=== PATIENT | male | born 1940 | race Caucasian/White ===

== ENCOUNTER 2018-01-21 15:32 | Emergency (ER) | payer OTHER, SELFPAY ==
[2018-01-21 15:34] VITALS: BP 158/82; PULSE 66; RESP 18; TEMP 35.9; O2SAT 94; BMI 31.8
--- NOTE | 2018-01-21 15:57 | EKG12_ITS ---
Test Reason : Blood Pressure : / mmHG Vent. Rate : 074 BPM Atrial Rate : 061 BPM P-R Int : 192 ms QRS Dur : 088 ms QT Int : 402 ms P-R-T Axes : -17 009 040 degrees QTc Int : 446 ms Sinus rhythm with occasional Premature ventricular complexes Otherwise normal ECG Confirmed by YUNIER HUANG, LUZ ([id number]), associate entertainment editor KATHERINE LOVE ([id number]) on 01/24/2018 9:09:03 AM Referred By: MASSIEL Confirmed By:LUZ FAYE MD
--- NOTE | 2018-01-21 15:58 | RAD_ITS ---
STUDY: X-RAY CHEST REASON FOR EXAM: Male, 77 years old. Headache. Shortness of breath. TECHNIQUE: PA and lateral views of the chest. COMPARISON: None. FINDINGS: There are monitoring devices. The lungs are clear and expanded. There is no demonstrated pleural abnormality. Normal size heart. Normal mediastinum and elvie. Normal visualized pulmonary arteries. There is atherosclerotic calcification of the aortic arch. There are diffuse degenerative changes of the visualized thoracic spine. There is degenerative osteoarthritis of the bilateral shoulders. There is no demonstrated abnormality of the visualized soft tissue structures of the upper abdomen. RAD/Chest PA and Lateral IMPRESSION: Normal x-ray examination of the chest. Electronically Signed: Kadeem Alexis MD at 17:01 EST , Service support ,
--- NOTE | 2018-01-21 16:01 | ED.DCSUM_ITS ---
- ER Visit Summary Date of Service: 01/21/18 Chief Complaint: Kidney trouble History of Present Illness: The patient is a 77 M who presents for 1 day of urinary symptoms, including urinary frequency and dysuria. Patient states he has been urinating every 15-20 minutes and was unable to sleep overnight. He has had a dull headache for 2 days and has intermittent blurred vision with it. He denies fever, chest pain, abdominal pain, back pain, weakness or numbness in the arms or legs. He does have history of chronic dyspnea secondary to CHF. Also is having mild nausea. Patient denies being diabetic. He has not taken anything for his headache. He had prior symptoms 2 weeks ago when he forgot his medications while out of town and did not take them. His symptoms lasted approximately 2 days and resolved after he began taking his medication again. Patient is on Effexor but states he has not missed any doses. Physical Examination: Vital signs: afebrile, hemodynamically stable, no hypoxia on room air General: well nourished, well developed, in no distress Skin: warm, dry, no rash, no pallor HEENT: normocephalic and atraumatic; PERRL, EOMI, no nystagmus, moist mucous membranes Cardiovascular: regular rate and rhythm with soft 2/6 systolic murmur, no peripheral edema, 2+ pulses all distal extremities Respiratory: No increased work of breathing, lungs are clear to auscultation bilaterally for mild diminished sounds in the right lower field, no rales, rhonchi or wheezing Abdominal: Abdomen is soft, nontender with normoactive bowel sounds, no guarding or rebound, no masses MSK: Moves all extremities, no deformities, normal strength Neuro: Awake and alert, oriented ?4. No facial droop, sensation and motor function intact and symmetric Test Results: Abnormal Lab Results 01/21/18 01/21/18 01/21/18 16:00 16:00 18:00 WBC 10.3 RBC 4.37 L Hgb 14.7 Hct 43.1 MCV 98.6 H MCH 33.6 H MCHC 34.1 RDW 13.4 RDW Differential 47.2 H Plt Count 213 MPV 8.7 Immature Gran % (Auto) 0.100 Neut % (Auto) 69.4 Lymph % (Auto) 19.1 [place] % (Auto) 10.0 Eos % (Auto) 1.2 Baso % (Auto) 0.2 Absolute Neuts (auto) 7.2 Absolute Lymphs (auto) 1.97 Total Counted Not Reportable Sodium 136 Potassium 3.9 Chloride 103 Carbon Dioxide 27.0 Anion Gap 6 BUN 12 Creatinine 0.88 Estim Creat Clear Calc 67.81 Est GFR (MDRD) Af Amer 108 Est GFR (MDRD) Non-Af 90 BUN/Creatinine Ratio 13.6 Glucose 99 Calcium 8.6 Total Bilirubin 1.30 H AST 18 ALT 32 Alkaline Phosphatase 43 L Troponin I < 0.015 Total Protein 8.1 Albumin 3.7 Globulin 4.4 H Albumin/Globulin Ratio 0.8 L Urine Color Yellow Urine Clarity Sl Cloudy Urine pH 6.0 Ur Specific [place] 1.020 Urine Protein 100 H Urine Glucose (UA) Normal Urine Ketones 5 H Urine Occult Blood 250 H Urine Nitrite Positive H Urine Bilirubin Negative Urine Urobilinogen Normal Ur Leukocyte Esterase 500 H Urine RBC 0-5 SEEN Urine WBC >100 SEEN Ur Squamous Epith Cells 0 SEEN Urine Bacteria 3+ Urine Mucus 0 SEEN Clinical Impression(s) from Imaging Studies Chest X-Ray 01/21/18 15:58 IMPRESSION: Normal x-ray examination of the chest. Electronically Signed: Kadeem Alexis MD at 17:01 EST , Service support , Medications Given Discontinued Medications Levofloxacin (Levaquin Tablet) 750 mg PO X1 ONE Stop: 01/21/18 19:58 Last Admin: 01/21/18 20:05 Dose: 750 mg Emergency Department Course and Treatment: Patient presents with chief complaint of urinary frequency and dysuria. Patient does state his blood pressure has been somewhat poorly controlled since he forgot his medications a couple weeks ago and missed a few days worth. Patient was offered and declined medication for his headache. Because part of his complaint was also his blood pressure, workup was performed to look for endorgan damage. EKG showed a sinus rhythm without ischemia or ectopy. Troponin negative. CBC, BMP and hepatic function were unremarkable. Chest x-ray showed no infiltrates or overt CHF. Urinalysis was positive for infection. Has had no abdominal pain, back pain or other complaints that would be concerning for an obstructed stone causing his UTI. Discussed with patient whether he had any history of prostate issues, and states his most recent physical showed no issues with his prostate. Patient was started on Levaquin for complicated UTI, since he is male. He was discharged home and is to follow-up with his doctor if he continues to have symptoms. Had no findings of endorgan damage that would be concerning for uncontrolled hypertension on his workup. He will continue his blood pressure medications and was encouraged not to miss any doses. Treatment Plan: [] Disposition: [] Impression: Complicated UTI This note was generated with [employer] dictation software. It may contain incorrect words, spelling, and punctuation that were not noted in review of the chart prior to signing ED Disposition - Plan for ED Patient: Disposition: Home or Assisted Living Chief Complaint: Hypertension Instructions: ED UTI Cystitis Male Prescriptions: Levofloxacin [Levaquin] 750 mg PO DAILY #5 tab Referrals: Damir Yang DO [Primary Care Provider] - 3-5 Days if not improving Additional Instructions: You have a urinary tract infection. Please take the antibiotic as prescribed. Use [id number] pain medication such as Tylenol or ibuprofen as needed for pain. Please take all your medications, including your blood pressure medicine as prescribed. Follow-up with your doctor in 2-3 days if you are not having improvement of your symptoms. If you have any worsening of your condition or any new concerning symptoms, please return immediately to the emergency department for another evaluation.
--- NOTE | 2018-01-21 16:04 | NURSING ---
NO OLD EKGS
[2018-01-21 16:24] LABS: Absolute Lymphocyte Count 1.97 X10^3/ul (0.83-4.51); Absolute Neutrophil Count 7.2 X10^3/uL (2.0-7.7); Basophil# 0.02 X10^3/uL; Basophil% 0.2 % (0-1); Eosinophil# 0.12 X10^3/uL; Eosinophils% 1.2 % (0-5); Hematocrit 43.1 % (40-54); Hemoglobin 14.7 g/dl (13.0-16.5); Lymphocyte # 1.97 X10^3/ul (4.0); Lymphocyte % 19.1 % (19-41); Mean Corp Hgb Conc 34.1 g/gl (32-36); Mean Corpuscular Hgb 33.6 pg (27.0-32.0); Mean Corpuscular Volume 98.6 fL (80-94); Mean Platelet Vol. 8.7 fl (6.2-12.0); Monocyte# 1.03 X10^3/uL; Neutrophil # 7.16 X10^3/uL (2.7-7.7); Neutrophil % 69.4 % (47-70); Platelet Count 213 K/mm3 (150-450); RBC Distribution Width CV 13.4 % (11.6-14.6); RBC Distribution Width SD 47.2 fl (35.1-43.9); Red Blood Count 4.37 M/mm3 (4.6-6.2); White Blood Count 10.3 K/mm3 (4.4-11.0)
[2018-01-21 16:26] LABS: POSITIVE COUNT NO; POSITIVE DIFFERENTIAL NO; POSITIVE MORPHOLOGY NO
[2018-01-21 16:35] LABS: ALB/GLOB Ratio 0.8 RATIO (0.9-2.4); AST(SGOT) 18 U/L (15-37); Alanine Aminotransfer ALT/SGPT 32 U/L (16-61); Albumin, Serum 3.7 g/dL (3.2-5.0); Alkaline Phosphatase 43 U/L (45-117); Anion Gap 6 (5-15); BUN 12 mg/dL (7-18); BUN/Creat Ratio 13.6 RATIO (10-20); Calcium,Total 8.6 mg/dL (8.5-10.1); Chloride 103 mmol/L (98-107); Creatinine, Serum 0.88 mg/dL (0.70-1.30); EST Glomerular Filtration Rate 90 mL/min (>60); Est Glom Filt Rate - Afr Amer 108 mL/min (>60); Estimated Creatinine Clearance 67.81 ml/min; Globulin 4.4 g/dL (2.2-4.2); Glucose 99 mg/dL (74-106); Potassium 3.9 mmol/L (3.5-5.1); Protein, Total 8.1 g/dL (6.4-8.2); Sodium Level 136 mmol/L (136-145)
[2018-01-21 18:04] VITALS: BP 170/90; PULSE 59; RESP 20; O2SAT 97
[2018-01-21 18:06] LABS: Mucous, Urine 0 SEEN /hpf (<or=2+); Squamous Epithelial Cells - UA 0 SEEN /hpf (0-5)
[2018-01-21 18:12] LABS: Glucose, Dipstick Normal (Normal); Ketone-Dipstick 5 mg/dl (Negative); Leukocyte Esterase-Dipstick 500 /ul (Negative); Nitrite-Dipstick Positive (Negative); Occult Blood-Urine 250 /ul (Negative); Protein-Dipstick 100 mg/dl (Negative); Urine Bilirubin Dipstick Negative (Negative); Urine Urobilinogen Normal (Normal)
[2018-01-21 18:31] LABS: Color, Urine Yellow (Yellow)
[2018-01-21 18:32] LABS: Urine Clarity Sl Cloudy (Clear)
[2018-01-21 18:33] LABS: Bacteria 3+ /hpf (None Seen); Red Blood Cells-Urine 0-5 SEEN /hpf (0-5); White Blood Cells >100 SEEN /hpf (0-5)
--- NOTE | 2018-01-21 19:58 | ED.DEP ---
ED Disposition - Plan for ED Patient: Disposition: Home or Assisted Living Chief Complaint: Hypertension Instructions: ED UTI Cystitis Male Prescriptions: Levofloxacin [Levaquin] 750 mg PO DAILY #5 tab Referrals: Damir Yang DO [Primary Care Provider] - 3-5 Days if not improving Additional Instructions: You have a urinary tract infection. Please take the antibiotic as prescribed. Use nuya-vec-ruanbex pain medication such as Tylenol or ibuprofen as needed for pain. Please take all your medications, including your blood pressure medicine as prescribed. Follow-up with your doctor in 2-3 days if you are not having improvement of your symptoms. If you have any worsening of your condition or any new concerning symptoms, please return immediately to the emergency department for another evaluation.
[2018-01-21] MEDS: levoFLOXacin 750 MG Tablet PO (20:05)
[2018-01-21 20:07] VITALS: BP 160/110; PULSE 67; RESP 16; O2SAT 99
--- OUTSIDE RECORDS SUMMARY | 2018-03-09 23:12 | XMS RPT_ITS ---
:1940 Author Organization OHIP Support Name Relationship Address Phone R Unavailable Unavailable Unavailable DANIEL MOORE Unavailable [address] + [place] [address] R Unavailable Unavailable Unavailable ARLETTE MOOREON Unavailable [address] + [place] [address] R Unavailable Unavailable Unavailable ARLETTE MOOREON Unavailable [address] + [place] [address] R Unavailable Unavailable Unavailable MOOREARLETTEON Unavailable [address] + [place] [address] R Unavailable Unavailable Unavailable S Unavailable Unavailable Unavailable ARLETTE MOOREON Unavailable [address] + [place] [address] S Unavailable Unavailable Unavailable MOORE, ENISHA Unavailable [address] + [place] [address] ARLETTE MOOREON Unavailable [address] + [place] [address] S Unavailable Unavailable Unavailable MOORE, NEISHA Unavailable [address] + [place] [address] MOOREARLETTEON Unavailable [address] + [place] [address] MOORE, NEISHA Unavailable [address] + [place] [address] MOORE, NEISHA Unavailable [address] + [place] [address] Care Team Providers Name Role Phone DAMIR YANG DO Attending Unavailable CELIA DO, DAMIR W Primary Care Unavailable Cinthya Parada Attending Unavailable Celia, Damir Primary Care Unavailable Celia, Damir Primary Care Unavailable Ramiro Jarrell Attending Unavailable Celia, Damir Primary Care Unavailable White, Buffy Admitting Unavailable White, Buffy Referring Unavailable Abram, Zafar Consulting Unavailable Dwayne Silvestreolas F Attending Unavailable White, Buffy Admitting Unavailable White, Buffy Attending Unavailable White, Buffy Referring Unavailable Celia, Damir Primary Care Unavailable White, Buffy Consulting Unavailable White, Buffy Admitting Unavailable Kokirtionihaylee Vinh F Attending Unavailable White, Buffy Referring Unavailable Celia, Damir Primary Care Unavailable Abram, Zafar Consulting Unavailable Kotsonis, Vinh F Consulting Unavailable Cristine Stone Attending Unavailable White, Buffy Admitting Unavailable Kotsonis, Vinh F Attending Unavailable White, Buffy Referring Unavailable Celia, Damir Primary Care Unavailable Abram, Zafar Consulting Unavailable Kotsonis, Vinh F Consulting Unavailable PROBLEMS PROBLEMS DATE TYPE CONDITION / CODE ATTENDING STATUS SOURCE 02/26/2018 Unknown N20.0 - CalcRamiro Yoon Active [facility] kidney / Community N20.0(ICD-10) Hospital Repository PROCEDURES PROCEDURES No Procedure Records FoundRESULTS RESULTS 12 LEAD ELECTROCARDIOGRAM Observed: 03/04/2018 Status: F Source: [place] 1:08 PM [facility] HOSPITAL REPOSITORY [facility] Cardiovascular Services [address] [place] [id number] 12 Lead EKG 03/02/18 2257 MR#: [id number] Acct: [id number] Name: MOUNA MOORE Rep #: [id number] : 1940 77 From: Clifton John MD Attending Dr: Vinh Silvestre MD Status: DIS IN Ordering Dr: Brianne Barrera DO Date: 03/02/18 Location: [place] Sex: M C Admitted: 03/02/18 Test Reason : FLANK PAIN Blood Pressure : / mmHG Vent. Rate : 057 BPM Atrial Rate : 057 BPM P-R Int : 174 ms QRS Dur : 088 ms QT Int : 448 ms P-R-T Axes : -02 005 009 degrees QTc Int : 436 ms Sinus bradycardia with occasional Premature ventricular complexes Otherwise normal ECG Confirmed by YUNIER HUANG, CLIFTON ([id number]), story editor DEMETRIUS TAM ([id number]) on 03/04/2018 1:08:27 PM Referred By: Buffy Tariq Confirmed By:CLIFTON JOHN MD 03/04/18 1308 Date Clifton John MD CC: Buffy Tariq; Vinh Silvestre MD; Damir Yang MD; Brianne Barrera DO Signed DISCHARGE SUMMARY Observed: 03/04/2018 Status: F Source: [place] 8:41 AM [facility] REPOSITORY [facility] Medical Records Department [address] [place] [address] Discharge Summary 03/04/18 0832 MR#: [id number] Acct: [id number] Name: MOUNA MOORE Rep #: [id number] : 1940 77 From: Vinh Silvestre MD PCP: Damir Yang MD Status: ADM IN Location: [place] [address] Discharge Date and Diagnosis - Problem List Patient Problems: Active and Suspected Problems Nephrolithiasis (Acute) YUE (acute kidney injury) (Acute) Date of Admission: 03/02/18 Date of Discharge: 03/04/18 - Primary Discharge Diagnosis Active and Suspected Problems Nephrolithiasis (Acute) YUE (acute kidney injury) (Acute) - Secondary Discharge Diagnosis Chronic Problems CHF (congestive heart failure) (Chronic) HTN (hypertension) (Chronic) HLD (hyperlipidemia) (Chronic) Obesity (BMI 30.0-34.9) (Chronic) Anxiety and depression (Chronic) Hospital Course and Treatment Imaging Results: CT Abd/Pelvis: IMPRESSION: 1. A 5 mm left ureteral stone at the UVJ, with moderate proximal hydroureteronephrosis. 2. Cholelithiasis. No evidence of acute cholecystitis. 3. Diverticulosis. No diverticulitis. 4. A 5 mm pleural-based nodule in the right lung base, likely fibrotic. Operations: - - Cystoscopy: Date of Procedure: 03/03/18 Pre- Operative Diagnosis: Left ureteral calculi with obstruction Post-Operative Diagnosis: Same Surgery/Procedure Performed:: Cystoscopy, balloon dilation of the left ureter, left ureteroscopy laser lithotripsy of stone. No stent Summary of Care Provided: Per HPI: The patient is a 77 y/o M w/ PMHx: CHF Unclear type, HTN, HLD, Obesity, Anxiety and Depression who presents to the [facility] ED on 03/02/18 with history of ongoing L sided flank pain, dysuria which started initially approximately 2 weeks prior with eventual ED evaluation initially on 02/26/18 with diagnosis at that time of a 4.7 mm left kidney stone with despite discharge oral pain regimen ongoing discomfort prompting ED return. In the ED upon evaluation patient had been noted to be mildly hypoxic but this was following notable morphine regimen and denied any recent cough, congestion, orthopnea, worsened lower extremity edema. He does note that he has been markedly constipated for the last several days secondary to recent narcotic therapies. In the ED workup included T 98.3, heart rate 68, heart rate 16, 91% on room air following EMS administration morphine 10 mg IV x 1, CBC with WBC 7.1, heme globin 13.1, platelet 239 with mild shift, BMP with BUN/Cr 17/1.35, decreased from prior 1.43, baseline Cr noted 0.8, trop < 0.015, EKG with SR w/ occasional PVC, BNP 479.1, chest x-ray with no acute cardio primary process, CT A/P w/ 5 mm left ureteral stone at the UVJ, with moderate proximal hydroureteronephrosis, cholelithiasis w/ no evidence of acute cholecystitis, diverticulosis, 5 mm pleural-based nodule in the right lung base, likely fibrotic. In the ED patient administered normal saline. Hospital Course: 1. Left nephrolithiasis with moderate proximal hydroureteronephrosis/AK I -77-year-old male who presented to the ER February 26 with flank pain and was found to have a 4.7 mm stone at that time he was given oral narcotics and sent home. He presented back to the hospital because of continued pain and admitted because of the hydroureteronephrosis seen on CT scan of his abdomen pelvis. On 03/03/2018 he underwent a cystoscopy and the stone was destroyed and no stent was placed. He is feeling much better today from a pain standpoint and should hopefully not need any of the narcotics which has caused him significant constipation. I have explained to him that he needs to ambulate and to take any bowel regimen that he needs to all at home to assist with bowel movements. Otherwise he is to follow-up with his primary care physician in 3-5 days as well as Dr. velez in 2-3 weeks. 2. Hypertension/hyperlipidemia/chronic chronic CHF of unclear type-it is uncertain the degree of heart failure if any since he is never had an echo. Since he presented for a kidney stone and not any orthopnea no investigation was done during this admission. He can continue with his blood pressure medications at discharge as his acute kidney injury has resolved. 3. Incidental right lower lobe nodule-there is a 5 mm pleural- based nodule in the right lung base that was caught on the CT abdomen pelvis. He is a non- smoker and will need follow-up of his nodule in about 12 months. 4. His other medical diagnoses were evaluated and his home medications were continued where appropriate Patient Problems: Active and Suspected Problems Nephrolithiasis (Acute) YUE (acute kidney injury) (Acute) Objective: General: Alert, Oriented x3, Cooperative, No apparent distress HEENT: Atraumatic, EOMI, Normocephalic Oral: Moist Mucosa Neck: Supple, No JVD Lungs: Clear to auscultation, Normal air movement, No rhonchi, No wheeze, No rales Cardiovascular: Regular rate, Regular Rhythm, Normal S1, Normal S2, No murmurs Abdomen: Soft, Non Tender, Non-Distended, No Hepato-splenomegaly Extremities: No edema, Capillary Refill Less than 3 Seconds Skin: No rashes, No breakdown Neurological: Neuro grossly intact, Sensory exam intact to light touch and pain Psych/Mental Status: Normal Affect, Appropriate - Physical Exam Vital Signs Temp Pulse Resp BP Pulse Ox 97.7 F L 64 16 142/85 H 92 03/04/18 03:48 03/04/18 03:48 03/04/18 03:48 03/04/18 03:48 03/04/18 03:48 Oxygen Flow Rate (L/min) 1 Oxygen Delivery Method Nasal Cannula Weight: 194 lb 14.218 oz Body Mass Index (BMI) 30.4 Finger Stick Blood Glucose 99 Intake and Output for Last 24 Hours Intake Total 1918 / 1918 1381 / 1381 Output Total 450 / 450 1450 / 1450 Balance 1468 / 1468 -69 / -69 Laboratory Tests Past 24 Hrs Urine Color Yellow Urine Clarity Clear Discharge Activity: No Restrictions Call your doctor if you observe: Fever of 101 or Higher, Shortness of breath, Dizziness, Chest pain, Increased palpitations (irregular heartbeat) Home Medications: Medications to take at Discharge Atorvastatin Calcium [Lipitor] 40 mg PO QHS 01/21/18 Nebivolol HCl [Bystolic (Beta Wade)] 10 mg PO DAILY 01/21/18 Telmisartan/Hydrochlorothiazid [Micardis Hct 40-12.5 MG Tablet] 1 tab PO DAILY 01/21/18 Venlafaxine XR [Effexor Xr] 150 mg PO DAILY 01/21/18 Ondansetron [Zofran Odt] 4 mg PO Q8H PRN PRN #10 tab 02/26/18 Tamsulosin HCl [Flomax] 0.4 mg PO DAILY #7 cap 02/26/18 Oxycodone HCl/Acetaminophen [Percocet 5-325 mg Tablet] 1 tab PO Q6H PRN PRN 03/03/18 Primary Care Physician: Damir Yang DO [Primary Care Provider] - Please follow up with your Primary Care Physician in: 3-5 days Please Follow Up With: Mustapha Valverde MD When: 2-3 weeks Disposition: Home Minutes spent on discharge:: 35 Patient Condition:: Good Medical Necessity - Tobacco Use Smoking Status: Never smoker Tobacco Use: Non-smoker Meaningful Use Info Meaningful Use Diagnoses (Choose all that apply): None applicable Code Visit Inpatient E AND M: 64139 Disch Hosp 03/04/18 0841 <Electronically signed by Vinh Silvestre MD> Date Vinh Silvestre MD Cosigner Signature (if applicable): Date CC: Vinh Silvestre MD; Damir Yang MD Signed DISCHARGE INSTRUCTION Observed: 03/04/2018 Status: F Source: [place] 8:32 [facility] Medical Records Department [address] [place] [address] Instructions for Home/Discharge Instructions 03/04/18 0830 MR#: [id number] Acct: [id number] Name: MOUNA MOORE Rep #: [id number] : 1940 77 From: Vinh Silvestre MD PCP: Damir Yang MD Status: ADM IN - Discharge Diagnoses Current Active Problems: Current Active and Chronic Problems Nephrolithiasis (Acute) YUE (acute kidney injury) (Acute) CHF (congestive heart failure) (Chronic) HTN (hypertension) (Chronic) HLD (hyperlipidemia) (Chronic) Obesity (BMI 30.0-34.9) (Chronic) Anxiety and depression (Chronic) You will use the following diet at home:: Regular Your food should be the consistency of: Regular Your liquids should be the consistency of: Regular/Thin Discharge Activity: No Restrictions Call your doctor if you observe: Fever of 101 or Higher, Shortness of breath, Dizziness, Chest pain, Increased palpitations (irregular heartbeat) Allergies/Adverse Reactions: Allergies No Known Allergies Allergy (Verified 03/02/18 22:28) Medications to take at Discharge Atorvastatin Calcium [Lipitor] 40 mg PO QHS 01/21/18 Nebivolol HCl [Bystolic (Beta Wade)] 10 mg PO DAILY 01/21/18 Telmisartan/Hydrochlorothiazid [Micardis Hct 40-12.5 MG Tablet] 1 tab PO DAILY 01/21/18 Venlafaxine XR [Effexor Xr] 150 mg PO DAILY 01/21/18 Ondansetron [Zofran Odt] 4 mg PO Q8H PRN PRN #10 tab 02/26/18 Tamsulosin HCl [Flomax] 0.4 mg PO DAILY #7 cap 02/26/18 Oxycodone HCl/Acetaminophen [Percocet 5-325 mg Tablet] 1 tab PO Q6H PRN PRN 03/03/18 Primary Care Physician: Damir Yang DO [Primary Care Provider] - Please follow up with your Primary Care Physician in: 3-5 days Test Results: Test results from this visit will be discussed in further detail at your follow-up appointment, if applicable. Please Follow Up With: Mustapha Valverde MD When: 2-3 weeks 03/04/18 0831 <Electronically signed by Vinh Silvestre MD> Date Vinh Silvestre MD CC: Mustapha Valverde MD; Damir Yang MD Signed OPERATIVE REPORT Observed: 03/03/2018 Status: F Source: [place] 1:48 PM [facility] REPOSITORY [facility] Medical Records Department [address] [place] [address] Operative Report 03/03/18 1346 MR#: [id number] Acct: [id number] Name: MOUNA MOORE Rep #: [id number] : 1940 77 From: Mustapha Valverde MD PCP: Damir Yang MD Status: ADM IN Location: [address] Problem List (1) Nephrolithiasis Status: Acute (2) YUE (acute kidney injury) Status: Acute Report of Operation Date of Procedure: 03/03/18 Pre-Operative Diagnosis: Left ureteral calculi with obstruction Post-Operative Diagnosis: Same Surgery/Procedure Performed:: Cystoscopy, balloon dilation of the left ureter, left ureteroscopy laser lithotripsy of stone. No stent Description of Surgical Findings:: 77-year-old male taken back to the operating room at the smooth induction of general anesthesia he was placed and placed supine on the table and then a dorsolithotomy position penis and testicles were prepped and draped in usual sterile fashion went into the bladder with a 21 Spanish rigid cystourethroscope once I got inside the bladder he had a very large bladder and a large prostate heavily trabeculated identified the left ureteral orifice there was a stone emanating from the ureteral orifice I used a balloon dilator and the wire advanced a wire up the left ureter and over the wire advanced the balloon dilator balloon dilated the distal left ureter and then left the wire in place next the wire went in with a SlimLine rigid ureteroscope was able to get in the ureter quite easily and then I lasered the stone with a 270 m laser fiber the stone laser little tiny pieces and all pieces passed I then pulled out the ureter drained the bladder patient anesthetic was reversed no stent was placed he will follow-up with me in a few weeks for checkup. Type of Anesthesia:: General Drains: none - Admit VTE Documentation VTE Present on Admission: No VTE Mechan Device Prophylaxis: SCD's 03/03/18 1348 <Electronically signed by Mustapha Valverde MD> Date Mustapha Valverde MD CC: Buffy Tariq; Mustapha Valverde MD; Damir Yang MD Signed URINALYSIS, COMPLETE Collected: 03/03/2018 Status: F Source: [place] 11:25 AM [facility] REPOSITORY Order Comment: Order Date: 03/02/18 How was Urine Obtained? CLEAN CATCH TYPE CODE TESTS RESULT OUT OF RANGE REFERENCE UNITS LAB L400.3000 Yellow COLOR Normal Yellow LAB L400.3050 Clear Normal CLARITY Clear LAB L400.3200 Normal mg/dl Normal GLUCOSE, UR Normal LAB L400.3300 Negative mg/dL Normal BILIRUBIN URINE Negative LAB L400.3400 Negative mg/dl High 50 KETONE UR LAB L400.3465 1.002-1.030 Normal SP.GR. DIPSTX 1.010 LAB L400.3550 5.0 - 8.0 pH UR Normal 6.5 LAB L400.3600 Negative mg/dl High PROT 30 DIPSTX LAB L400.3700 Normal mg/dl Normal UROBILI Normal LAB L400.3750 Negative Normal NITRITE UR Negative LAB L400.3780 Negative /ul High 50 OCCULT BLOOD-UR LAB L400.3800 Negative /ul LEUK Normal ESTERASE Negative LAB L400.4050 0-5 /hpf WBC 0 Normal SEEN LAB L400.4100 0-5 /hpf Normal RBC-UA 0-5 SEEN LAB L400.4150 0-5 /hpf SQUAM 0 Normal EPI SEEN LAB L400.4300 None Seen /hpf 0 Normal BACTERIA SEEN LAB L400.4350 <or=2+ /hpf 0 Normal MUCUS, URINE SEEN Performed By: #### L400.0001 #### [facility] [place], [address] CONSULTATION Observed: 03/03/2018 Status: F Source: [place] 7:43 AM [facility] REPOSITORY [facility] Medical Records Department [address] [place] [address] Consultation 03/03/18 0741 MR#: [id number] Acct: [id number] Name: MOUNA MOORE Rep #: [id number] : 1940 77 From: Mustapha Valverde MD PCP: Damir Yang MD Status: ADM IN [facility] Problem List (1) Nephrolithiasis Status: Acute (2) YUE (acute kidney injury) Status: Acute Reason for Consult Date of Consultation: 03/03/18 Reason for Consultation: ureteral calculi History of Present Illness: The patient is a 77 year old male with 7mm left ureteral calculi with obstruction. admitted for pain control plan to take to surgery today for laser lithotripsy. Past Medical History Past Medical History (Chronic Problems): Chronic Problems CHF (congestive heart failure) (Chronic) HTN (hypertension) (Chronic) HLD (hyperlipidemia) (Chronic) Obesity (BMI 30.0-34.9) (Chronic) Anxiety and depression (Chronic) Allergies No Known Allergies Allergy (Verified 03/02/18 22:28) Home Medications: Ambulatory Orders Medication Instructions Recorded Atorvastatin Calcium [Lipitor] 40 mg PO QHS 01/21/18 Nebivolol HCl [Bystolic] 10 mg PO DAILY 01/21/18 Surgical History: noncontributory, - - Appendectomy. Psychiatric History: Anxiety, Depression Lives: Spouse/ Significant Other Smoking Status: Never smoker Tobacco Use: Non-smoker Alcohol: None Drugs: None - *Family History Maternal History Items: - - Patient denies any marked maternal or paternal family history including heart disease, diabetes, cancer. Paternal History Items: - - Patient denies any marked maternal or paternal family history including heart disease, diabetes, cancer. Review of Systems Constitutional: Denies: Chills, Fever, Weight Change HEENT: Denies: Head Aches, Sinus Congestion, Sinus Drainage Cardiovascular: Denies: Chest Pain, Palpitations Respiratory: Denies: Cough, Shortness of breath at rest, Sputum production Gastrointestinal: Reports: Abdominal Pain. Denies: Nausea, Vomiting Genitourinary: Reports: Hematuria. Denies: Dysuria Musculoskeletal: Denies: Joint Pain, Joint Tenderness Skin: Denies: Rash, Wounds Neurological: Denies: Numbness, Tingling, Focal weakness Psychiatric: Denies: Anxiety, Depression, Homicidal Ideations, Suicidal Ideations Hematologic/ Lymphatic: Denies: Easy Bruising, Easy Bleeding Physical Exam - Physical Exam Vital Signs Temp 98.0 F 03/03/18 01:21 Pulse 57 L 03/03/18 03:11 Resp 20 H 03/03/18 01:21 BP 156/87 H 03/03/18 02:02 Pulse Ox 92 03/03/18 01:21 Intake AND Output General: Alert, Oriented x3 HEENT: Atraumatic Oral: Moist Mucosa Neck: Supple Lungs: Normal air movement Cardiovascular: Regular rate, Regular Rhythm Abdomen: Soft, Obese Laboratory Tests Past 24 Hrs WBC 7.1 Assessment/Plan All Active Problems Nephrolithiasis (Acute) YUE (acute kidney injury) (Acute) npo consent for Surgery today ureteroscopy laser possible stent. 03/03/18 0743 <Electronically signed by Mustapha Valverde MD> Date Mustapha Valverde MD Cosigner Signature (if applicable): Date CC: Buffy Tariq; Mustapha Valverde MD; Damir Yang MD Signed BASIC METABOLIC Collected: 03/03/2018 Status: F Source: [place] PROFILE (BMP) 5:06 AM [facility] REPOSITORY TYPE CODE TESTS RESULT OUT OF RANGE REFERENCE UNITS LAB L501.0100 74-106 mg/dL Normal GLU 103 Result Comment: Fasting Glucose result from 100 to 125 mg/dL suggests IMPAIRED HOMEOSTASIS per A.D.A. criteria. Please note revised GLUCOSE reference range effective 2017. LAB L501.1000 7-18 mg/dL Normal BUN 16 LAB L501.1100 0.70-1.30 mg/dL Normal CREAT,SERUM 1.24 Result Comment: The validity of the calculated GFR AND GFRAA in patients over 70 years has not been determined. Clinical correlation is essential. LAB L501.1110 >60 mL/min Normal EST GFR 60 Result Comment: Non- GFR Calc LAB L501.1115 >60 mL/min Normal EST GFR - AA 73 Result Comment: GFR Calc LAB L501.1255 ml/min Normal Estimated CRCL 48.12 LAB L501.1300 10-20 RATIO Normal BUN/CRE 12.9 LAB L501.2200 8.5-10 mg/dL Normal .1 CA 8.8 LAB L501.5300 136-14 mmol/L Normal 5 NA 138 LAB L501.5600 3.5-5. mmol/L Normal 1 K 4.1 LAB L501.5900 98-107 mmol/L Normal CL 105 LAB L501.6100 21.0-3 mmol/L Normal 2.0 CO2 23.0 LAB L501.6200 5-15 Normal GAP 10 Performed By: #### L500.2500 #### [facility] [address] [place], [address] CBC W/DIFF, AUTOMATED Collected: 03/03/2018 Status: F Source: [place] 5:06 AM [facility] REPOSITORY TYPE CODE TESTS RESULT OUT OF RANGE REFERENCE UNITS LAB L100.1000 4.4-11.0 K/mm3 Normal WBC 5.5 LAB L100.1200 4.6-6.2 M/mm3 Low RBC 3.95 LAB L100.1300 13.0-16.5 g/dl Normal HGB 13.3 LAB L100.1400 40-54 % Low HCT 39.2 LAB L100.1500 80-94 fL High MCV 99.2 LAB L100.1600 27.0-32.0 pg High MCH 33.7 LAB L100.1700 32-36 g/gl Normal MCHC 33.9 LAB L100.1810 11.6-14.6 % Normal RDW CV 13.2 LAB L100.1820 35.1-43.9 fl High RDW SD 47.2 LAB L100.1900 150-450 K/mm3 Normal PLT 257 LAB L100.2000 6.2-12.0 fl Normal MPV 9.0 LAB L100.2100 47-70 % High NEUT% 70.9 LAB L100.2200 19-41 % Low LY% 16.1 LAB L100.2300 0-10 % High MONO% 11.7 LAB L100.2400 0-5 % Normal EO% 0.9 LAB L100.2500 0-1 % Normal BASO% 0.2 LAB L100.2550 0.0-0.9 % Normal IM GRAN % 0.200 Result Comment: IG% - Immature Granulocytes (promyelocytes, myelocytes and metamyelocytes) > 1% indicates that a LEFT SHIFT is Present. LAB L100.2620 2.0-7.7 X10 3/uL Normal Absolute Neut 3.9 LAB L100.2720 0.83-4.51 X10 3/ul Normal Absolute Lymph 0.88 Performed By: #### L100.0100 #### [facility] [address] [facility] [place], [address] HISTORY AND PHYSICAL Observed: 03/03/2018 Status: F Source: [place] EXAM 12:58 AM [facility] REPOSITORY [facility] Medical Records Department [address] [place] [address] History and Physical 03/02/18 1335 MR#: [id number] Acct: [id number] Name: MOOREIHSAN TOLENTINOPAYAL Jiménez Rep #: [id number] : 1940 77 From: Buffy Tariq PCP: Damir Yang MD Status: ADM IN Location: [place] [address] Problem List (1) Nephrolithiasis Status: Acute (2) YUE (acute kidney injury) Status: Acute (3) CHF (congestive heart failure) Status: Chronic Qualifiers: Heart failure type: unspecified Heart failure chronicity: chronic Qualified Code(s): I50.9 - Heart failure, unspecified (4) HTN (hypertension) Status: Chronic Qualifiers: Hypertension type: essential hypertension Qualified Code(s): I10 - Essential (primary) hypertension (5) HLD (hyperlipidemia) Status: Chronic Qualifiers: Hyperlipidemia type: pure hypercholesterolemia Qualified Code(s): E78.00 - Pure hypercholesterolemia, unspecified; E78.0 - Pure hypercholesterolemia (6) Obesity (BMI 30.0-34.9) Status: Chronic (7) Anxiety and depression Status: Chronic History of Present Illness Date of Admission: 03/02/18 Chief Complaint: L flank pain, ongoing The patient is a 77 y/o M w/ PMHx: CHF Unclear type, HTN, HLD, Obesity, Anxiety and Depression who presents to the [facility] ED on 03/02/18 with history of ongoing L sided flank pain, dysuria which started initially approximately 2 weeks prior with eventual ED evaluation initially on 02/26/18 with diagnosis at that time of a 4.7 mm left kidney stone with despite discharge oral pain regimen ongoing discomfort prompting ED return. In the ED upon evaluation patient had been noted to be mildly hypoxic but this was following notable morphine regimen and denied any recent cough, congestion, orthopnea, worsened lower extremity edema. He does note that he has been markedly constipated for the last several days secondary to recent narcotic therapies. In the ED workup included T 98.3, heart rate 68, heart rate 16, 91% on room air following EMS administration morphine 10 mg IV x 1, CBC with WBC 7.1, heme globin 13.1, platelet 239 with mild shift, BMP with BUN/Cr 17/1.35, decreased from prior 1.43, baseline Cr noted 0.8, trop < 0.015, EKG with SR w/ occasional PVC, BNP 479.1, chest x-ray with no acute cardio primary process, CT A/P w/ 5 mm left ureteral stone at the UVJ, with moderate proximal hydroureteronephrosis, cholelithiasis w/ no evidence of acute cholecystitis, diverticulosis, 5 mm pleural-based nodule in the right lung base, likely fibrotic. In the ED patient administered normal saline. Past Medical History Past Medical History (Chronic Problems): Chronic Problems CHF (congestive heart failure) (Chronic) HTN (hypertension) (Chronic) HLD (hyperlipidemia) (Chronic) Obesity (BMI 30.0-34.9) (Chronic) Anxiety and depression (Chronic) Allergies No Known Allergies Allergy (Verified 03/02/18 22:28) Home Medications: Ambulatory Orders Medication Instructions Recorded Atorvastatin Calcium [Lipitor] 40 mg PO QHS 01/21/18 Surgical History: - - Appendectomy. Psychiatric History: Anxiety, Depression Lives: Spouse/ Significant Other Smoking Status: Never smoker Tobacco Use: Non-smoker Alcohol: None Drugs: None - *Family History Maternal History Items: - - Patient denies any marked maternal or paternal family history including heart disease, diabetes, cancer. Paternal History Items: - - Patient denies any marked maternal or paternal family history including heart disease, diabetes, cancer. Review of Systems Constitutional: Reports: Anorexia, Fever, Malaise, Weakness, Fatigue. Denies: Chills, Weight Change HEENT: Denies: Head Aches, Sinus Congestion, Sinus Drainage Cardiovascular: Denies: Chest Pain, Palpitations Respiratory: Denies: Cough, Shortness of Breath, Shortness of breath at rest, Shortness of breath upon exertion, Sputum production Gastrointestinal: Reports: Abdominal Pain, Constipation, Nausea. Denies: Vomiting Genitourinary: Reports: Dysuria Musculoskeletal: Denies: Joint Pain, Joint Tenderness Skin: Denies: Rash, Wounds Neurological: Denies: Numbness, Tingling, Focal weakness Psychiatric: Reports: Anxiety, Depression. Denies: Homicidal Ideations, Suicidal Ideations Hematologic/ Lymphatic: Denies: Easy Bruising, Easy Bleeding VTE Information - Inpt Only VTE Present on Admission: No VTE Mechan Device Prophylaxis: SCD's VTE Pharm Prophylaxis ordered?: Yes Patient Problems: Active and Suspected Problems Nephrolithiasis (Acute) YUE (acute kidney injury) (Acute) Subjective: Seated upright in the ED, fatigued appearance, no acute distress. Objective: Physical Examination: General: awake, alert, oriented x 3 and cooperative, seated upright in the ED bed in no apparent distress. Skin: normal color, turgor, no icterus, cyanosis. HEENT: AT/NC, EOMI, PERRLA, dry MM, no carotid bruits or JVD noted. Lungs: Diminished BS BL, > bases, poor effort, no rales, ronchi or wheezing. Heart: Regular rate and rhythm; no gallop, rub audible. Abdomen: soft, mildly distended, hypoactive BS, NTTP, no HSM; however, mild distention makes examination difficult, L flank pain w/ palpation. Extremities: no cyanosis, clubbing, or edema. Neurological: patient awake, alert, oriented x 3; cognitive function intact; pupils equally reactive to light and accomodation; cranial nerves II-XII grossly normal, moving all 4 extremities, no focal deficits, strength severely globally decreased secondary to acute presentation. Psychiatric: affect appears fatiged, flat, no acute evidence of depressive or anxiety feelings. - Physical Exam Vital Signs Temp Pulse Resp Pulse Ox 98.3 F 68 16 91 03/02/18 22:28 03/02/18 22:28 03/02/18 22:28 03/02/18 22:28 Oxygen Delivery Method Room Air Weight: 207 lb 3.752 oz Body Mass Index (BMI) 32.4 Finger Stick Blood Glucose 99 Laboratory Tests Past 24 Hrs Assessment/Plan All Active Problems Nephrolithiasis (Acute) YUE (acute kidney injury) (Acute) The patient is a 77 y/o M w/ PMHx: CHF Unclear type, HTN, HLD, Obesity, Anxiety and Depression who presents to the [facility] ED on 03/02/18 with history of ongoing L sided flank pain, dysuria which started initially approximately 2 weeks prior with eventual ED evaluation initially on 02/26/18 with diagnosis at that time of a 4.7 mm left kidney stone with despite discharge oral pain regimen ongoing discomfort prompting ED return. (1) Acute Flank Pain, secondary to Acute Nephrolithiasis w/ moderate proximal hydroureteronephrosis: CBC w/ WBC 7.1 with mild shift, UA requested but yet to be obtained, concurrent mild YUE improved from recent ED evaluation, CT A/P w/ 5 mm left ureteral stone at the UVJ, with moderate proximal hydroureteronephrosis. Will admit to [facility], maintain on gentle hydration given CHF history, defer abx pending UA given current appearance, maintain NPO for possible intervention, PRN IV/oral pain regimen, PRN anti-emetics, monitor I AND Os. Given size of calculus may possibly pass, however, ongoing notable symptoms thus will request Urology consultation. (2) Acute kidney injury: Secondary to recent UTI, regimen. Admission BUN/Cr [], prior baseline creatinine noted to be 0.8, improving from recent ED evaluation as had been 1.35 prior. Will hydrate, hold nephrotoxic medications and repeat chemistry in AM. (3) Anxiety and Depression: Continue home effexor regimen. (4) CHF, Chronic, Unclear Type: BNP 479.1, does not appear markedly volume overloaded. CXR without acute process, no ECHO noted in meditech, holding asa for possible OR, holding ARB, HCTZ for mild YUE, continue BB, continue statin. Gently hydrating given mild YUE with acute presentation #1 as noted, closely monitor. (5) Incidental RLL Nodule: CT A/P w/ incidental 5 mm pleural- based nodule in the right lung base, likely fibrotic, will need outpatient continued follow-up. (6) Hypertension: Given mild YUE hold ARB, HCTZ, continue BB, PRN hydralazine. (7) Hyperlipidemia: Continue home statin regimen. (8) Obesity: Weight loss and lifestyle changes encouraged. (9) BPH: Continue home flomax regimen. (10) Constipation: Likely associated w/ narcotics, possibly contributing to poor respiratory effort in addition to pain, initiate bowel regimen. (11) DVT Prophylaxis: SCDs, heparin. Code Visit Inpatient E AND M: [id number] Init Hosp L3 03/03/18 0058 <Electronically signed by Buffy Tariq > Date Buffy Tariq Cosigner Signature: Date (if applicable) CC: Buffy Tariq; Damir Yang MD Signed EMERGENCY DEPARTMENT Observed: 03/02/2018 Status: F Source: [place] SUMMARY 11:53 PM [facility] REPOSITORY [facility] Medical Records Department [address] [place] [address] Emergency Department Summary 03/02/18 2349 MR#: [id number] Acct: [id number] Name: MOOREIHSAN TOLENTINOPAYAL Jiménez Rep #: [id number] : 1940 77 From: Brianne Barrera DO PCP: Damir Yang MD Status: REG ER - ER Visit Summary Date of Service: 03/02/18 Chief Complaint: [Flank pain] History of Present Illness: The patient is a 77 M [presents the emergency department with complaint of left-sided flank pain and abdominal pain that started 2 weeks ago initially. Patient was seen in the emergency department on the 16th of the month and diagnosed with a 4.7 mm stone at the left kidney. Patient states that the pain never really resolved and he continues to have significant pain. Family also states that last time he was in the emergency department he had a low oxygen levels in the 80s and was told to follow-up with his primary care physician. Patient has had subjective fever at home. He denies any cough. He denies any chest pain. Patient received 10 mg of morphine from EMS on arrival to the emergency department he has no pain.] Physical Examination: [HEENT-PERRLA, EOMI. Cranial nerves II through XII grossly intact. TMs clear. Mucous membranes moist. No adenopathy. Cardiovascular-regular rate and rhythm without murmur or ectopy Lungs-good aeration bilaterally. Patient has some faint rales in the bases. No accessory muscle use or retractions. Abdomen-normoactive bowel sounds, soft. Patient has tenderness palpation over the left lower quadrant with some guarding. There is no rebound, rigidity, or perineal signs. Extremities-intact 4, normal range of motion, normal pulses, atraumatic] Test Results: [CBC with differential white count of 7.1, hemoglobin 13, hematocrit 39, platelets 239. Chemistries unremarkable. BUN was 17 and creatinine 1.35. Troponin is less than 0.015. EKG obtained arrival shows sinus bradycardia with a rate of 57 bpm with occasional PVCs. Chest x-ray showed nothing acute. CT flank showed a 5 mm stone at the left UVJ with moderate hydronephrosis. Patient had a hydro-ureter. Patient had cholelithiasis without evidence of cholecystitis.] Emergency Department Course and Treatment: [] Treatment Plan: [Plan will be to discuss case with hospitalist to admit patient for pain control] Disposition: [Admit] Impression: [Kidney stone with colic Intractable pain] This note was generated with Law[employer] dictation software. It may contain incorrect words, spelling, and punctuation that were not noted in review of the chart prior to signing ED Disposition - Plan for ED Patient: Chief Complaint: Flank Pain Referrals: Damir Yang, [Primary Care Provider] - What to do if you have Problems For any increased pain, shortness of breath, bleeding, nausea or vomiting, chest pain, or any unexpected problems, contact your Primary Care Provider. Call [facility] ([phone]) or report to the closest Emergency Room. Call 911 if necessary. 03/02/18 5312 <Electronically signed by Brianne Barrera DO> Date Brianne Barrera DO Cosigner Signature (If Indicated): Date CC: Damir Yang MD CBC W/DIFF, AUTOMATED Collected: 03/02/2018 Status: F Source: [place] 11:15 PM [facility] REPOSITORY TYPE CODE TESTS RESULT OUT OF RANGE REFERENCE UNITS LAB L100.1000 4.4-11.0 K/mm3 Normal WBC 7.1 LAB L100.1200 4.6-6.2 M/mm3 Low RBC 3.97 LAB L100.1300 13.0-16.5 g/dl Normal HGB 13.1 LAB L100.1400 40-54 % Low HCT 39.4 LAB L100.1500 80-94 fL High MCV 99.2 LAB L100.1600 27.0-32.0 pg High MCH 33.0 LAB L100.1700 32-36 g/gl Normal MCHC 33.2 LAB L100.1810 11.6-14.6 % Normal RDW CV 13.4 LAB L100.1820 35.1-43.9 fl High RDW SD 48.7 LAB L100.1900 150-450 K/mm3 Normal PLT 239 LAB L100.2000 6.2-12.0 fl Normal MPV 8.9 LAB L100.2100 47-70 % High NEUT% 77.0 LAB L100.2200 19-41 % Low LY% 12.7 LAB L100.2300 0-10 % Normal MONO% 9.3 LAB L100.2400 0-5 % Normal EO% 0.6 LAB L100.2500 0-1 % Normal BASO% 0.1 LAB L100.2550 0.0-0.9 % Normal IM GRAN % 0.300 Result Comment: IG% - Immature Granulocytes (promyelocytes, myelocytes and metamyelocytes) > 1% indicates that a LEFT SHIFT is Present. LAB L100.2620 2.0-7.7 X10 3/uL Normal Absolute Neut 5.5 LAB L100.2720 0.83-4.51 X10 3/ul Normal Absolute Lymph 0.90 Performed By: #### L100.0100 #### [facility] [address] [place], [place], [address] BASIC METABOLIC Collected: 03/02/2018 Status: F Source: [place] PROFILE (BMP) 11:15 PM [facility] REPOSITORY TYPE CODE TESTS RESULT OUT OF RANGE REFERENCE UNITS LAB L501.0100 74-106 mg/dL High GLU 117 Result Comment: Fasting Glucose result from 100 to 125 mg/dL suggests IMPAIRED HOMEOSTASIS per A.D.A. criteria. Please note revised GLUCOSE reference range effective 2017. LAB L501.1000 7-18 mg/dL Normal BUN 17 LAB L501.1100 0.70-1.30 mg/dL High CREAT,SERUM 1.35 Result Comment: The validity of the calculated GFR AND GFRAA in patients over 70 years has not been determined. Clinical correlation is essential. LAB L501.1110 >60 mL/min Low EST GFR 55 Result Comment: Non- GFR Calc LAB L501.1115 >60 mL/min Normal EST GFR - AA 66 Result Comment: GFR Calc LAB L501.1255 ml/min Normal Estimated CRCL 44.20 LAB L501.1300 10-20 RATIO Normal BUN/CRE 12.6 LAB L501.2200 8.5-10 mg/dL Normal .1 CA 8.5 LAB L501.5300 136-14 mmol/L Normal 5 NA 136 LAB L501.5600 3.5-5. mmol/L Normal 1 K 4.1 LAB L501.5900 98-107 mmol/L Normal CL 104 LAB L501.6100 21.0-3 mmol/L Normal 2.0 CO2 22.0 LAB L501.6200 5-15 Normal GAP 10 Performed By: #### L500.2500, L501.4010 #### [facility] [address], [address] TROPONIN-I Collected: 03/02/2018 Status: F Source: [place] 11:15 PM [facility] REPOSITORY TYPE CODE TESTS RESULT OUT OF RANGE REFERENCE UNITS LAB L501.4010 <0.045 ng/mL Normal < 0.015 TROPONIN-I Result Comment: TROPONIN-I EXPECTED VALUES <0.045 Negative 0.045 - 0.590 Consistent with Cardiac Damage > OR = 0.600 Critical Value Not every elevated troponin is indicative of UT. These values should be used with clinical judgement in examining the patient's clinical picture for diagnosis. To establish a diagnosis of UT versus myocardial injury, there must be a demonstrated rise and/or fall in the troponin values, in addition to ischemic symptoms, EKG changes, new regional wall motion abnormality, and/or angiographical evidence. PLEASE NOTE: REFERENCE RANGES EDITED 17 Performed By: #### L500.2500, L501.4010 #### [facility] [address] [place], [address] BNP,B-TYPE NATRIURETIC Collected: 03/02/2018 Status: F Source: [place] PEPTIDE 11:15 PM [facility] REPOSITORY TYPE CODE TESTS RESULT OUT OF RANGE REFERENCE UNITS LAB L503.6620 0-100 pg/mL High B-TYPE 479.1 ALDA PEP Performed By: #### L503.6620 #### [facility] [address] [place], [address] MAGNESIUM Collected: 03/02/2018 Status: F Source: [place] 11:15 PM [facility] REPOSITORY TYPE CODE TESTS RESULT OUT OF RANGE REFERENCE UNITS LAB L501.5200 1.6-2.6 mg/dL Normal MG 2.3 Performed By: #### L501.5200 #### [facility] [address] [place], [address] ABDOMEN/PELVIS WITHOUT Observed: 03/02/2018 Status: F Source: [place] CONT 10:45 PM [facility] HOSPITAL REPOSITORY [facility] Imaging Services [address] [place] [address] Abdomen/Pelvis without Cont MR#: [id number] Acct: [id number] Name: MOUNA MOORE Tino Rep #: [id number] : 1940 M 77 From: Debbi Vitale MD PCP: Damir Yang MD Status: REG ER Study: Abdomen/Pelvis without Cont Date of Exam: 03/02/18 Exam# [id number] Ordering Dr: Brianne Barrera DO STUDY: CT ABDOMEN AND PELVIS WITHOUT CONTRAST REASON FOR EXAM: Male, 77 years old. Left flank pain with diaphoresis. RADIATION DOSAGE (If Supplied By Facility): CTDIvol = ( 11.86 ) mGy, DLP = ( 634.07 ) mGycm TECHNIQUE: Transaxial images were obtained from the dome of the diaphragm to the symphysis pubis without oral contrast, and without intravenous contrast. Sagittal and coronal images were reconstructed. Individualized dose optimization techniques were used for this CT. COMPARISON: 02/26/2018. FINDINGS: There is a 5 mm pleural-based nodule in the right lung base, associated with the major fissure. This is unchanged compared to the prior study. Visualized heart is normal. The liver is unremarkable. There is a 1.7 cm stone in the gallbladder. No evidence of acute pericholecystic inflammatory changes. There is a single calcification in the spleen consistent with old granulomatous disease. The adrenal glands are normal. The right kidney is normal. No stones or hydronephrosis. There is moderate left hydronephrosis with perinephric stranding. The left ureter is moderately dilated. There is a 5 x 3 mm stone in the left ureterovesical junction. This has advanced compared to the prior study. The aorta is normal in caliber. There is no free fluid, free air, or organized collection. No bowel obstruction or inflammatory change. Diverticulosis is noted, with no evidence of acute diverticulitis. Stool burden is mild. Urinary bladder is unremarkable. Normal abdominal wall. Normal osseous structures. CT/Abdomen/Pelvis without Cont IMPRESSION: 1. A 5 mm left ureteral stone at the UVJ, with moderate proximal hydroureteronephrosis. 2. Cholelithiasis. No evidence of acute cholecystitis. 3. Diverticulosis. No diverticulitis. 4. A 5 mm pleural-based nodule in the right lung base, likely fibrotic. Electronically Signed: Debbi Vitale MD at 23:32 EST Tel , Service support , CC: Damir Yang MD; Brianne Barrera DO Accounting Instructor: Signed CHEST 1 VIEW Observed: 03/02/2018 Status: F Source: [place] (PORTABLE) 10:45 PM [facility]OSPITAL REPOSITORY [facility] Imaging Services [address] [facility] [place] [address] Chest 1 View (Portable) MR#: [id number] Acct: [id number] Name: MOUNA MOORE Rep #: [id number] : 1940 M 77 From: Debbi Vitale MD PCP: Damir Yang MD Status: REG ER Study: Chest 1 View (Portable) Date of Exam: 03/02/18 Exam# [id number] Ordering Dr: Brianne Barrera DO STUDY: X-RAY CHEST REASON FOR EXAM: Male, 77 years old. Flank pain. TECHNIQUE: Flank pain. COMPARISON: 02/26/2018. FINDINGS: The lungs are clear and expanded. There is no demonstrated pleural abnormality. Normal size heart. Normal mediastinum and elvie. Normal visualized pulmonary arteries. Normal visualized aortic arch and descending thoracic aorta. Normal visualized thoracic spine. Normal visualized ribs, clavicles, and shoulders. There is no demonstrated abnormality of the visualized soft tissue structures of the upper abdomen. RAD/Chest 1 View (Portable) IMPRESSION: Normal x-ray examination of the chest. Electronically Signed: Debbi Vitale MD at 23:34 EST Tel , Service support , CC: Damir Yang MD; Brianne Barrera DO Accounting Instructor: Signed DISCHARGE INSTRUCTION Observed: 02/26/2018 Status: F Source: [place] 11:50 PM [facility]OSPITAL REPOSITORY [facility] Medical Records Department [address] [place] [address] Discharge Instruction 02/26/181705 MR#: [id number] Acct: [id number] Name: MOUNA MOORE Rep #: [id number] : 1940 77 From: Ramiro Jarrell MD PCP: Damir Yang MD Status: DEP ER ED Disposition - Plan for ED Patient: Chief Complaint: Flank Pain Instructions: ED Stone Renal W Colic Prescriptions: Oxycodone HCl/Acetaminophen [Percocet 5/325] 1 tab PO Q6H PRN PRN 3 Days #12 tab PRN Reason: Pain Ondansetron [Zofran Odt] 4 mg PO Q8H PRN PRN #10 tab PRN Reason: Nausea Tamsulosin HCl [Flomax] 0.4 mg PO DAILY #7 cap Referrals: Mustapha Valverde MD [STAFF PHYSICIAN] - What to do if you have Problems For any increased pain, shortness of breath, bleeding, nausea or vomiting, chest pain, or any unexpected problems, contact your Primary Care Provider. Call [facility] ([phone]) or report to the closest Emergency Room. Call 911 if necessary. 02/26/18 0320 <Electronically signed by Ramiro Jarrell MD> Date Ramiro Jarrell MD Cosigner Signature (If Indicated): Date CC: Damir Yang MD EMERGENCY DEPARTMENT Observed: 02/26/2018 Status: F Source: [place] SUMMARY 11:50 PM [facility] REPOSITORY [facility] Medical Records Department [address] [place] [address] Emergency Department Summary 02/26/181700 MR#: [id number] Acct: [id number] Name: IHSAN MOOREPAYAL Jiménez Rep #: [id number] : 1940 77 From: Ramiro Jarrell MD PCP: Damir Yang MD Status: DEP ER - ER Visit Summary Date of Service: 02/26/18 Chief Complaint: Left flank pain History of Present Illness: The patient is a 77 M with increasing left flank pain for 4 days. The pain is in his left flank and sometimes radiates to his abdomen diffusely. He feels ill and has a mild headache. Sometimes the pain causes him to be short of breath. He missed his cardiology appointment today because he felt ill. He has a history of kidney stones as well as bladder infections. He also reports a history of hypertension and hyperlipidemia. Denies any history of lithotripsy, stents, or other urologic procedures. He passed his kidney stone in the past spontaneously. Physical Examination: Hypertensive. Temperature 100.1. Otherwise vitals unremarkable. Patient appears uncomfortable but is not toxic or in distress. Heart regular. Lungs clear. Left flank tender to palpation. No guarding or rebound. Extremities nontender with good strength and sensation. Test Results: EKG showed sinus rhythm with PVCs at a rate of 69. Chest x-ray showed nothing acute. CBC unremarkable. Creatinine 1.43 and glucose 108. Hepatic panel and lipase unremarkable. Urinalysis shows very small amount of bleeding. Troponin normal. CT abdomen showed left hydroureter nephrosis with a 4.7 mm mid pelvic ureter stone. He also has cholelithiasis without cholecystitis. Emergency Department Course and Treatment: Patient was treated with fluids, morphine, and Zofran while awaiting results. He has a history of kidney stones. I believe this stone is causing his left flank pain. His creatinine is elevated from baseline at 1.43. He is not septic and his urine does not show signs of infection. Dr. Warren was paged, but at the time of dictation, he had not yet called back. The patient would like to go home. He will be prescribed Flomax, Percocet, Zofran, and he will call urology tomorrow for follow-up. Prior to discharge, the patient had a pulse ox in the high 80s. He ambulated and dropped to 85. He did not have any other symptoms. I did advise admission for hypoxia evaluation. The patient declined. He would like to go home and follow-up with his doctors. He will return if he has any new or worsening issues Treatment Plan: As above Disposition: Discharge Impression: 1. Left ureteral colic 2. Elevated creatinine This note was generated with [employer] dictation software. It may contain incorrect words, spelling, and punctuation that were not noted in review of the chart prior to signing ED Disposition - Plan for ED Patient: Disposition: Home or Assisted Living Chief Complaint: Flank Pain Instructions: ED Stone Renal W Colic Prescriptions: Oxycodone HCl/Acetaminophen [Percocet 5/325] 1 tab PO Q6H PRN PRN 3 Days #12 tab PRN Reason: Pain Ondansetron [Zofran Odt] 4 mg PO Q8H PRN PRN #10 tab PRN Reason: Nausea Tamsulosin HCl [Flomax] 0.4 mg PO DAILY #7 cap Referrals: Mustapha Valverde MD [STAFF PHYSICIAN] - What to do if you have Problems For any increased pain, shortness of breath, bleeding, nausea or vomiting, chest pain, or any unexpected problems, contact your Primary Care Provider. Call [facility] ([phone]) or report to the closest Emergency Room. Call 911 if necessary. 02/26/18 2350 <Electronically signed by Ramiro Jarrell MD> Date Ramiro Jarrell MD Cosigner Signature (If Indicated): Date CC: Damir Yang MD CHEST 1 VIEW Observed: 02/26/2018 Status: F Source: [place] (PORTABLE) 3:20 PM [facility] REPOSITORY [facility] Imaging Services [address] [place] [address] Chest 1 View (Portable) MR#: [id number] Acct: [id number] Name: MOUNA MOORE Rep #: [id number] : 1940 M 77 From: Arthur Gonzalez MD PCP: Damir Yang MD Status: REG ER Study: Chest 1 View (Portable) Date of Exam: 02/26/18 Exam# [id number] Ordering Dr: Ramiro Jarrell MD STUDY: X-RAY CHEST REASON FOR EXAM: Male, 77 years old. Chest pain. Flank pain. TECHNIQUE: Single AP portable view of the chest. COMPARISON: None. FINDINGS: The lungs are clear and expanded. There is no demonstrated pleural abnormality. There is borderline cardiomegaly. Normal mediastinum and elvie. Normal visualized pulmonary arteries. There is atherosclerotic calcification of the aortic arch with tortuosity. There are diffuse degenerative changes of the visualized thoracic spine. Normal visualized ribs, clavicles, and shoulders. There is no demonstrated abnormality of the visualized soft tissue structures of the upper abdomen. RAD/Chest 1 View (Portable) IMPRESSION: No acute abnormality is seen. Electronically Signed: Arthur Gonzalez MD at 15:57 EST Tel [phone], Service support , CC: Ramiro Jarrell MD; Damir Yang MD Accounting Instructor: Signed ABDOMEN/PELVIS W IV CONT Observed: 02/26/2018 Status: F Source: [place] ONLY 3:20 PM [facility] REPOSITORY [facility] Imaging Services [address] [place] [address] Abdomen/Pelvis W IV Cont ONLY MR#: [id number] Acct: [id number] Name: MOUNA MOORE Rep #: [id number] : 1940 77 From: Chirag Ashton MD PCP: Damir Yang MD Status: REG ER Study: Abdomen/Pelvis W IV Cont ONLY Date of Exam: 02/26/18 Exam# [id number] Ordering Dr: Ramiro Jarrell MD STUDY: CT ABDOMEN AND PELVIS WITHOUT CONTRAST REASON FOR EXAM: Male, 77 years old. Left flank pain for 3 days RADIATION DOSAGE (If Supplied By Facility): CTDIvol = ( 18.06 ) mGy, DLP = ( 1200.43 ) mGycm TECHNIQUE: Transaxial images were obtained from the dome of the diaphragm to the symphysis pubis without oral contrast, and without intravenous contrast. Sagittal and coronal images were reconstructed. Individualized dose optimization techniques were used for this CT. COMPARISON: None. FINDINGS: There is minor atelectasis within the dependent portion of the lungs. Mild prominence of the cardiac silhouette.. Mild fatty infiltration of the liver without mass or bile duct dilatation. Large partially calcified gallstone without evidence for acute cholecystitis Normal-sized spleen demonstrating tiny hypoattenuated density likely of no significance. Normal pancreas. Normal bilateral adrenal glands. Mild renal pelvocaliectasis on the right in association with extrarenal pelvis but no significant hydronephrosis or ureteral calculus. Tiny cyst in the upper pole the right kidney There is swelling of the left kidney in association with stranding in the perinephric fat due to moderate left hydroureteronephrosis secondary to a calculus in the mid pelvic ureter measuring approximately 4.7 mm. No renal mass Normal visualized stomach. Normal small intestine. Minor diverticular changes of the sigmoid and distal descending colon without evidence for acute diverticulitis.. No evidence for acute appendicitis. Atherosclerotic changes of the aorta without evidence for aneurysm. Normal inferior vena cava. Normal retroperitoneum. Nonspecific enlargement of the prostate imaging upon the base of bladder which is incompletely distended and thick-walled. Normal abdominal wall. Lumbar spine demonstrates moderate spondylosis. CT/Abdomen/Pelvis W IV Cont ONLY IMPRESSION: Moderate left hydroureteronephrosis secondary to calculus in the mid pelvic ureter measuring approximately 4.7 mm Cholelithiasis without evidence for acute cholecystitis. Other findings as above Electronically Signed: Chirag Ashton MD at 16:40 EST , Service support , CC: Ramiro Jarrell MD; Damir Yang MD Accounting Instructor: Signed CBC W/DIFF, AUTOMATED Collected: 02/26/2018 Status: F Source: [place] [facility] 3:05 PM [facility] REPOSITORY TYPE CODE TESTS RESULT OUT OF RANGE REFERENCE UNITS LAB L100.1000 4.4-11.0 K/mm3 Normal WBC 9.4 LAB L100.1200 4.6-6.2 M/mm3 Low RBC 4.34 LAB L100.1300 13.0-16.5 g/dl Normal HGB 14.5 LAB L100.1400 40-54 % Normal HCT 43.2 LAB L100.1500 80-94 fL High MCV 99.5 LAB L100.1600 27.0-32.0 pg High MCH 33.4 LAB L100.1700 32-36 g/gl Normal MCHC 33.6 LAB L100.1810 11.6-14.6 % Normal RDW CV 13.7 LAB L100.1820 35.1-43.9 fl High RDW SD 49.4 LAB L100.1900 150-450 K/mm3 Normal PLT 216 LAB L100.2000 6.2-12.0 fl Normal MPV 9.2 LAB L100.2100 47-70 % High NEUT% 75.5 LAB L100.2200 19-41 % Low LY% 14.4 LAB L100.2300 0-10 % Normal MONO% 9.3 LAB L100.2400 0-5 % Normal EO% 0.5 LAB L100.2500 0-1 % Normal BASO% 0.1 LAB L100.2550 0.0-0.9 % Normal IM GRAN % 0.200 Result Comment: IG% - Immature Granulocytes (promyelocytes, myelocytes and metamyelocytes) > 1% indicates that a LEFT SHIFT is Present. LAB L100.2620 2.0-7.7 X10 3/uL Normal Absolute Neut 7.1 LAB L100.2720 0.83-4.51 X10 3/ul Normal Absolute Lymph 1.35 Performed By: #### L100.0100 #### [facility] [address] [place], [address] COMPREHENSIVE METABOLIC Collected: 02/26/2018 Status: F Source: [place] 3:05 PM [facility] REPOSITORY TYPE CODE TESTS RESULT OUT OF RANGE REFERENCE UNITS LAB L501.0100 74-106 mg/dL High GLU 108 Result Comment: Fasting Glucose result from 100 to 125 mg/dL suggests IMPAIRED HOMEOSTASIS per A.D.A. criteria. Please note revised GLUCOSE reference range effective 2017. LAB L501.1000 7-18 mg/dL Normal BUN 16 LAB L501.1100 0.70-1.30 mg/dL High CREAT,SERUM 1.43 Result Comment: The validity of the calculated GFR AND GFRAA in patients over 70 years has not been determined. Clinical correlation is essential. LAB L501.1110 >60 mL/min Low EST GFR 51 Result Comment: Non- GFR Calc LAB L501.1115 >60 mL/min Normal EST GFR - AA 62 Result Comment: GFR Calc LAB L501.1255 ml/min Normal Estimated CRCL 41.73 LAB L501.1300 10-20 RATIO Normal BUN/CRE 11.2 LAB L501.1500 6.4-8. g/dL Normal 2 T PROT 8.1 LAB L501.1800 3.2-5. g/dL Normal 0 ALB 3.8 LAB L501.1950 2.2-4. g/dL High 2 GLOB 4.3 LAB L501.2000 0.9-2. RATIO Normal 4 A/G 0.9 LAB L501.2200 8.5-10 mg/dL Normal .1 CA 8.9 LAB L501.4100 15-37 U/L Normal AST 21 LAB L501.4305 45-117 U/L Normal ALK P 51 LAB L501.4405 16-61 U/L Normal ALT 31 LAB L501.4600 0.20-1 mg/dL Normal .00 T BILI 1.00 LAB L501.5300 136-14 mmol/L Normal 5 NA 138 LAB L501.5600 3.5-5. mmol/L Normal 1 K 4.1 LAB L501.5900 98-107 mmol/L Normal CL 105 LAB L501.6100 21.0-3 mmol/L Normal 2.0 CO2 26.0 LAB L501.6200 5-15 Normal GAP 7 Performed By: #### L500.4050, L501.2450, L501.4010 #### [facility] [place], [address] LIPASE Collected: 02/26/2018 Status: F Source: [place] 3:05 PM [facility] REPOSITORY TYPE CODE TESTS RESULT OUT OF RANGE REFERENCE UNITS LAB L501.2450 73-393 U/L Normal LIPASE 84 Performed By: #### L500.4050, L501.2450, L501.4010 #### [facility] [address] [place], [address] TROPONIN-I Collected: 02/26/2018 Status: F Source: [place] 3:05 PM [facility] REPOSITORY TYPE CODE TESTS RESULT OUT OF RANGE REFERENCE UNITS LAB L501.4010 <0.045 ng/mL Normal 0.016 TROPONIN-I Result Comment: TROPONIN-I EXPECTED VALUES <0.045 Negative 0.045 - 0.590 Consistent with Cardiac Damage > OR = 0.600 Critical Value Not every elevated troponin is indicative of UT. These values should be used with clinical judgement in examining the patient's clinical picture for diagnosis. To establish a diagnosis of UT versus myocardial injury, there must be a demonstrated rise and/or fall in the troponin values, in addition to ischemic symptoms, EKG changes, new regional wall motion abnormality, and/or angiographical evidence. PLEASE NOTE: REFERENCE RANGES EDITED 17 Performed By: #### L500.4050, L501.2450, L501.4010 #### [facility] [address] [place], [address] URINALYSIS, COMPLETE Collected: 02/26/2018 Status: F Source: [place] 2:50 PM [facility] REPOSITORY Order Comment: How was Urine Obtained? CLEAN CATCH TYPE CODE TESTS RESULT OUT OF RANGE REFERENCE UNITS LAB L400.3000 Yellow COLOR Normal Yellow LAB L400.3050 Clear Normal CLARITY Clear LAB L400.3200 Normal mg/dl Normal GLUCOSE, UR Normal LAB L400.3300 Negative mg/dL Normal BILIRUBIN URINE Negative LAB L400.3400 Negative mg/dl High 50 KETONE UR LAB L400.3465 1.002-1.030 Normal SP.GR. DIPSTX 1.015 LAB L400.3550 5.0 - 8.0 pH UR Normal 6.0 LAB L400.3600 Negative mg/dl High PROT DIPSTX 100 LAB L400.3700 Normal mg/dl Normal UROBILI Normal LAB L400.3750 Negative Normal NITRITE UR Negative LAB L400.3780 Negative /ul High 25 OCCULT BLOOD-UR LAB L400.3800 Negative /ul LEUK Normal ESTERASE Negative LAB L400.4050 0-5 /hpf WBC 0 Normal SEEN LAB L400.4100 0-5 /hpf Normal RBC-UA 0-5 SEEN LAB L400.4150 0-5 /hpf SQUAM 0 Normal EPI SEEN LAB L400.4300 None Seen /hpf 0 Normal BACTERIA SEEN LAB L400.4350 <or=2+ /hpf 0 Normal MUCUS, URINE SEEN Performed By: #### L400.0001 #### [facility] [address] [facility] [place], [address] 12 LEAD ELECTROCARDIOGRAM Observed: 01/24/2018 Status: F Source: [place] 9:09 AM [facility] REPOSITORY [facility] Cardiovascular Services [address] [place] [address] 12 Lead EKG 01/21/18 1613 MR#: [id number] Acct: [id number] Name: MOUNA MOORE Rep #: [id number] : 1940 77 From: Clifton John MD Attending Dr: Status: DEP ER Ordering Dr: Cinthya Parada MD Date: 01/21/18 Location: ED Sex: M C Admitted: Test Reason : Blood Pressure : / mmHG Vent. Rate : 074 BPM Atrial Rate : 061 BPM P-R Int : 192 ms QRS Dur : 088 ms QT Int : 402 ms P-R-T Axes : -17 009 040 degrees QTc Int : 446 ms Sinus rhythm with occasional Premature ventricular complexes Otherwise normal ECG Confirmed by YUNIER HUANG, CLIFTON ([id number]), story editor KATHERINE LOVE ([id number]) on 01/24/2018 9:09:03 AM Referred By: MASSIEL Confirmed By:CLIFTON JOHN MD 01/24/18 0909 Date Clifton John MD CC: Cinthya Parada MD; Damir Yang MD Signed EMERGENCY DEPARTMENT Observed: 01/22/2018 Status: F Source: [place] SUMMARY 12:55 AM [facility] REPOSITORY [facility] Medical Records Department [address] [place] [address] Emergency Department Summary 01/21/18 1559 MR#: [id number] Acct: [id number] Name: MOUNA MOORE Rep #: [id number] : 1940 77 From: Cinthya Parada MD PCP: Damir Yang MD Status: DEP ER - ER Visit Summary Date of Service: 01/21/18 Chief Complaint: Kidney trouble History of Present Illness: The patient is a 77 M who presents for 1 day of urinary symptoms, including urinary frequency and dysuria. Patient states he has been urinating every 15-20 minutes and was unable to sleep overnight. He has had a dull headache for 2 days and has intermittent blurred vision with it. He denies fever, chest pain, abdominal pain, back pain, weakness or numbness in the arms or legs. He does have history of chronic dyspnea secondary to CHF. Also is having mild nausea. Patient denies being diabetic. He has not taken anything for his headache. He had prior symptoms 2 weeks ago when he forgot his medications while out of town and did not take them. His symptoms lasted approximately 2 days and resolved after he began taking his medication again. Patient is on Effexor but states he has not missed any doses. Physical Examination: Vital signs: afebrile, hemodynamically stable, no hypoxia on room air General: well nourished, well developed, in no distress Skin: warm, dry, no rash, no pallor HEENT: normocephalic and atraumatic; PERRL, EOMI, no nystagmus, moist mucous membranes Cardiovascular: regular rate and rhythm with soft 2/6 systolic murmur, no peripheral edema, 2+ pulses all distal extremities Respiratory: No increased work of breathing, lungs are clear to auscultation bilaterally for mild diminished sounds in the right lower field, no rales, rhonchi or wheezing Abdominal: Abdomen is soft, nontender with normoactive bowel sounds, no guarding or rebound, no masses MSK: Moves all extremities, no deformities, normal strength Neuro: Awake and alert, oriented 4. No facial droop, sensation and motor function intact and symmetric Test Results: Abnormal Lab Results Clinical Impression(s) from Imaging Studies Chest X-Ray 01/21/18 15:58 IMPRESSION: Normal x-ray examination of the chest. Electronically Signed: Kadeem Alexis MD at 17:01 EST , Service support , Medications Given Discontinued Medications Levofloxacin (Levaquin Tablet) 750 mg PO X1 ONE Stop: 01/21/18 19:58 Last Admin: 01/21/18 20:05 Dose: 750 mg Emergency Department Course and Treatment: Patient presents with chief complaint of urinary frequency and dysuria. Patient does state his blood pressure has been somewhat poorly controlled since he forgot his medications a couple weeks ago and missed a few days worth. Patient was offered and declined medication for his headache. Because part of his complaint was also his blood pressure, workup was performed to look for endorgan damage. EKG showed a sinus rhythm without ischemia or ectopy. Troponin negative. CBC, BMP and hepatic function were unremarkable. Chest x-ray showed no infiltrates or overt CHF. Urinalysis was positive for infection. Has had no abdominal pain, back pain or other complaints that would be concerning for an obstructed stone causing his UTI. Discussed with patient whether he had any history of prostate issues, and states his most recent physical showed no issues with his prostate. Patient was started on Levaquin for complicated UTI, since he is male. He was discharged home and is to follow-up with his doctor if he continues to have symptoms. Had no findings of endorgan damage that would be concerning for uncontrolled hypertension on his workup. He will continue his blood pressure medications and was encouraged not to miss any doses. Treatment Plan: [] Disposition: [] Impression: Complicated UTI This note was generated with [employer] dictation software. It may contain incorrect words, spelling, and punctuation that were not noted in review of the chart prior to signing ED Disposition - Plan for ED Patient: Disposition: Home or Assisted Living Chief Complaint: Hypertension Instructions: ED UTI Cystitis Male Prescriptions: Levofloxacin [Levaquin] 750 mg PO DAILY #5 tab Referrals: Damir Yang, DO [Primary Care Provider] - 3-5 Days if not improving Additional Instructions: You have a urinary tract infection. Please take the antibiotic as prescribed. Use zkac-kkj-xqguvit pain medication such as Tylenol or ibuprofen as needed for pain. Please take all your medications, including your blood pressure medicine as prescribed. Follow-up with your doctor in 2-3 days if you are not having improvement of your symptoms. If you have any worsening of your condition or any new concerning symptoms, please return immediately to the emergency department for another evaluation. What to do if you have Problems For any increased pain, shortness of breath, bleeding, nausea or vomiting, chest pain, or any unexpected problems, contact your Primary Care Provider. Call [facility] ([phone]) or report to the closest Emergency Room. Call 911 if necessary. 01/22/18 0055 <Electronically signed by Cinthya Parada MD> Date Cinthya Parada MD Cosigner Signature (If Indicated): Date CC: Damir Yang MD DISCHARGE INSTRUCTION Observed: 01/21/2018 Status: F Source: [facility] 11:31 PM [facility] REPOSITORY [facility] Medical Records Department [address] [place] [address] Discharge Instruction 01/21/181957 MR#: [id number] Acct: [id number] Name: MOOREMOUNA Rep #: [id number] : 1940 77 From: Cinthya Parada MD PCP: Damir Yang MD Status: [facility] ER ED Disposition - Plan for ED Patient: Disposition: Home or Assisted Living Chief Complaint: Hypertension Instructions: ED UTI Cystitis Male Prescriptions: Levofloxacin [Levaquin] 750 mg PO DAILY #5 tab Referrals: Damir Yang DO [Primary Care Provider] - 3-5 Days if not improving Additional Instructions: You have a urinary tract infection. Please take the antibiotic as prescribed. Use ifin-cie-dnbqtei pain medication such as Tylenol or ibuprofen as needed for pain. Please take all your medications, including your blood pressure medicine as prescribed. Follow-up with your doctor in 2-3 days if you are not having improvement of your symptoms. If you have any worsening of your condition or any new concerning symptoms, please return immediately to the emergency department for another evaluation. What to do if you have Problems For any increased pain, shortness of breath, bleeding, nausea or vomiting, chest pain, or any unexpected problems, contact your Primary Care Provider. Call [facility] ([phone]) or report to the closest Emergency Room. Call 911 if necessary. 01/21/18 3821 <Electronically signed by Cinthya Parada MD> Date Cinthya Parada MD Cosigner Signature (If Indicated): Date CC: Damir Yang MD URINALYSIS, COMPLETE Collected: 01/21/2018 Status: F Source: [place] 6:00 PM [facility] REPOSITORY Order Comment: How was Urine Obtained? CLEAN CATCH TYPE CODE TESTS RESULT OUT OF RANGE REFERENCE UNITS LAB L400.3000 Yellow COLOR Normal Yellow LAB L400.3050 Clear Sl Normal CLARITY Cloudy LAB L400.3200 Normal mg/dl Normal GLUCOSE, UR Normal LAB L400.3300 Negative mg/dL Normal BILIRUBIN URINE Negative LAB L400.3400 Negative mg/dl High 5 KETONE UR LAB L400.3465 1.002-1.030 Normal SP.GR. DIPSTX 1.020 LAB L400.3550 5.0 - 8.0 pH UR Normal 6.0 LAB L400.3600 Negative mg/dl High PROT DIPSTX 100 LAB L400.3700 Normal mg/dl Normal UROBILI Normal LAB L400.3750 Negative High NITRITE UR Positive LAB L400.3780 Negative /ul High OCCULT BLOOD-UR 250 LAB L400.3800 Negative /ul High LEUK ESTERASE 500 LAB L400.4050 0-5 /hpf WBC Normal >100 SEEN LAB L400.4100 0-5 /hpf Normal RBC-UA 0-5 SEEN LAB L400.4150 0-5 /hpf SQUAM 0 Normal EPI SEEN LAB L400.4300 None Seen /hpf 3+ Normal BACTERIA LAB L400.4350 <or=2+ /hpf 0 Normal MUCUS, URINE SEEN Performed By: #### L400.0001 #### [facility] [address] [place], [place], [address] Observed: 01/21/2018 Status: F Source: [place] CULTURE, URINE 6:00 PM [facility] REPOSITORY Urine Culture ORGANISM 1: Presumptive E. coli [place] Count >100,000 Presumptive E. coli: REACTION Amoxacillin/Clavulanic Acid $ <=2 S Ampicillin $ <=2 S Ampicillin/Sulbactam $ <=2 S Cefazolin $ <=4 S Cefepime $ <=1 S Ceftriaxone $ <=1 S Ciprofloxacin $ <=0.25 S ESBL - Ertapenim $$$ <=0.5 S Gentamicin $ <=1 S Imipenem *NF <=0.25 S Levofloxacin $ <=0.12 S Nitrofurantoin $ <=16 S Piperacillin/Tazobactam $$ <=4 S Tobramycin $ <=1 S Trimethoprim/Sulfametho $ <=20 S (NF) indicates non-formulary drug at [facility]. Approval by Infectious Disease Specialist required before non-formulary drugs may be ordered and/or dispensed. Performed By: #### M100.0650 #### [facility] [address] [place], [place], [address] CHEST PA AND LATERAL Observed: 01/21/2018 Status: F Source: [place] 4:02 PM [facility] REPOSITORY [facility] Imaging Services [address] [place] [address] Chest PA and Lateral MR#: [id number] Acct: [id number] Name: MOOREMOUNA Rep #: [id number] : 1940 M 77 From: Kadeem Alexis MD PCP: Damir Yang MD Status: [facility] ER Study: Chest PA and Lateral Date of Exam: 01/21/18 Exam# [id number] Ordering Dr: Cinthya Parada MD STUDY: X-RAY CHEST REASON FOR EXAM: Male, 77 years old. Headache. Shortness of breath. TECHNIQUE: PA and lateral views of the chest. COMPARISON: None. FINDINGS: There are monitoring devices. The lungs are clear and expanded. There is no demonstrated pleural abnormality. Normal size heart. Normal mediastinum and elvie. Normal visualized pulmonary arteries. There is atherosclerotic calcification of the aortic arch. There are diffuse degenerative changes of the visualized thoracic spine. There is degenerative osteoarthritis of the bilateral shoulders. There is no demonstrated abnormality of the visualized soft tissue structures of the upper abdomen. RAD/Chest PA and Lateral IMPRESSION: Normal x-ray examination of the chest. Electronically Signed: Kadeem Alexis MD at 17:01 EST , Service support , CC: Cinthya Parada MD; Damir Yang MD Accounting Instructor: Signed CBC W/DIFF, AUTOMATED Collected: 01/21/2018 Status: F Source: [place] 4:00 PM [facility] REPOSITORY TYPE CODE TESTS RESULT OUT OF RANGE REFERENCE UNITS LAB L100.1000 4.4-11.0 K/mm3 Normal WBC 10.3 LAB L100.1200 4.6-6.2 M/mm3 Low RBC 4.37 LAB L100.1300 13.0-16.5 g/dl Normal HGB 14.7 LAB L100.1400 40-54 % Normal HCT 43.1 LAB L100.1500 80-94 fL High MCV 98.6 LAB L100.1600 27.0-32.0 pg High MCH 33.6 LAB L100.1700 32-36 g/gl Normal MCHC 34.1 LAB L100.1810 11.6-14.6 % Normal RDW CV 13.4 LAB L100.1820 35.1-43.9 fl High RDW SD 47.2 LAB L100.1900 150-450 K/mm3 Normal PLT 213 LAB L100.2000 6.2-12.0 fl Normal MPV 8.7 LAB L100.2100 47-70 % Normal NEUT% 69.4 LAB L100.2200 19-41 % Normal LY% 19.1 LAB L100.2300 0-10 % Normal MONO% 10.0 LAB L100.2400 0-5 % Normal EO% 1.2 LAB L100.2500 0-1 % Normal BASO% 0.2 LAB L100.2550 0.0-0.9 % Normal IM GRAN % 0.100 Result Comment: IG% - Immature Granulocytes (promyelocytes, myelocytes and metamyelocytes) > 1% indicates that a LEFT SHIFT is Present. LAB L100.2620 2.0-7.7 X10 3/uL Normal Absolute Neut 7.2 LAB L100.2720 0.83-4.51 X10 3/ul Normal Absolute Lymph 1.97 Performed By: #### L100.0100 #### [facility] [address] [place], [place], [address] COMPREHENSIVE METABOLIC Collected: 01/21/2018 Status: F Source: [facility] 4:00 PM [facility] REPOSITORY TYPE CODE TESTS RESULT OUT OF RANGE REFERENCE UNITS LAB L501.0100 74-106 mg/dL Normal GLU 99 Result Comment: Please note revised GLUCOSE reference range effective 2017. LAB L501.1000 7-18 mg/dL Normal BUN 12 LAB L501.1100 0.70-1.30 mg/dL Normal CREAT,SERUM 0.88 Result Comment: The validity of the calculated GFR AND GFRAA in patients over 70 years has not been determined. Clinical correlation is essential. LAB L501.1110 >60 mL/min Normal EST GFR 90 Result Comment: Non- GFR Calc LAB L501.1115 >60 mL/min Normal EST GFR - AA 108 Result Comment: GFR Calc LAB L501.1255 ml/min Normal Estimated CRCL 67.81 LAB L501.1300 10-20 RATIO Normal BUN/CRE 13.6 LAB L501.1500 6.4-8. g/dL Normal 2 T PROT 8.1 LAB L501.1800 3.2-5. g/dL Normal 0 ALB 3.7 LAB L501.1950 2.2-4. g/dL High 2 GLOB 4.4 LAB L501.2000 0.9-2. RATIO Low 4 A/G 0.8 LAB L501.2200 8.5-10 mg/dL Normal .1 CA 8.6 LAB L501.4100 15-37 U/L Normal AST 18 LAB L501.4305 45-117 U/L Low ALK P 43 LAB L501.4405 16-61 U/L Normal ALT 32 LAB L501.4600 0.20-1 mg/dL High .00 T BILI 1.30 LAB L501.5300 136-14 mmol/L Normal 5 NA 136 LAB L501.5600 3.5-5. mmol/L Normal 1 K 3.9 LAB L501.5900 98-107 mmol/L Normal CL 103 LAB L501.6100 21.0-3 mmol/L Normal 2.0 CO2 27.0 LAB L501.6200 5-15 Normal GAP 6 Performed By: #### L500.4050, L501.4010 #### [facility] [address] [facility] [place], [address] TROPONIN-I Collected: 01/21/2018 Status: F Source: [place] 4:00 PM [facility] REPOSITORY TYPE CODE TESTS RESULT OUT OF RANGE REFERENCE UNITS LAB L501.4010 <0.045 ng/mL Normal < 0.015 TROPONIN-I Result Comment: TROPONIN-I EXPECTED VALUES <0.045 Negative 0.045 - 0.590 Consistent with Cardiac Damage > OR = 0.600 Critical Value Not every elevated troponin is indicative of UT. These values should be used with clinical judgement in examining the patient's clinical picture for diagnosis. To establish a diagnosis of UT versus myocardial injury, there must be a demonstrated rise and/or fall in the troponin values, in addition to ischemic symptoms, EKG changes, new regional wall motion abnormality, and/or angiographical evidence. PLEASE NOTE: REFERENCE RANGES EDITED 17 Performed By: #### L500.4050, L501.4010 #### [facility] [address] [facility] [place], [address] XR CHEST 2 VIEWS Observed: 04/30/2017 Status: F Source: [facility] 9:24 AM [facility] REPOSITORY ORIGINAL XR CHEST 2 VIEWS CLINICAL STATEMENT: Shortness of breath, chest pain, fever, cough, symptoms for one week Comparison: None FINDINGS: Heart size is normal. There is prominence of the interstitial markings bilaterally. No focal consolidation, vascular congestion, pleural effusion, or pneumothorax. Multilevel degenerative changes of the spine. IMPRESSION: No acute radiographic finding. I have personally reviewed the images of this examination and agree with the resident's findings and interpretation. Interpreted By: Deidra Recinos MD Preliminary Report By: Taty Santiago DO Electronically Signed By: Deidra Recinos MD Dictated Date: 04/30/2017 9:39:21 AM Prelim Date: 04/30/2017 9:40:19 AM Sign Date: 04/30/2017 12:17:39 PM ALLERGIES ALLERGIES DATE TYPE / CODE NAME / CODE REACTION SEVERITY SOURCE 03/02/2018 Drug No Known Unknown [facility] Allergy/4160 Allergies/F00 Hospital [address](SNOMED [id number](RXNOR Repository CT) M) ENCOUNTERS ENCOUNTERS ADMIT/DISCHARGE ACCOUNT NUMBER ADMITTING ENCOUNTER LOCATION SOURCE CLASS 03/03/2018 [id number] [place], Ambulatory [facility]: [place] [facility] Repository 03/03/2018 [id number] [place], Ambulatory [facility]: [place] [facility] Repository 03/02/2018/03/04/19 [id number] [place], Inpatient [place] [facility] [place] Encounter [facility] ding:[id number] Repository : [id number]: 1 03/02/2018 [id number] [place], Ambulatory BMSBuilding: [place] [facility] Repository 02/26/2018/02/26/19 [id number] Emergency [place] [address] [facility] ding:ED Repository 02/26/2018 [id number] Ambulatory BMSBuilding: [place] [facility] Repository 01/21/2018/01/22/20 [id number] Emergency [place] [facility] ding:ED Repository 04/30/2017/05/01/19 [id number] Ambulatory [address] ding:[facility] Foundation Repository PAYERS PAYERS ENCOUNTER GUARANTOR PAYER SUBSCRIBER SOURCE 03/03/2018 MOUNA D Primary NOT GIVENUNK Juan Carlos [id number] S Insurance:SELF PAY [place], [place] Number: Effective Repository [id number]: ([phone]) Date:2018-03-02 () 03/03/2018 MOUNA D Primary NOT GIVENUNK Juan Carlos [id number] S Insurance:SELF PAY [place] Number: Effective Repository [phone]: ([phone]) Date:2018-03-03 (HP) 03/02/2018 MOUNA D Primary MOUNA D Juan Carlos [id number] S Insurance:CONFUCIANISM YODERDOB: [facility] Number: [id number] [id number] Repository 00171Blm: ([phone]) Date:2018-03-02 () 03/02/2018 Secondary MOUNA D [place] Insurance:IMMERGRUNPo YODERDOB: [facility] Number: [id number] [id number] Repository Date:[id number] [address] [place] [id number]: 03/02/2018 Tertiary NOT GIVENUNK [place] Insurance:SELF PAY [facility] Number: Effective Repository Date:2018-03-02 03/02/2018 MOUNA D Primary NOT GIVENUNK [place] [id number] S Insurance:SELF PAY [place] Number: Effective Repository [phone]: ([phone]) Date:2018-03-02 (HP) 02/26/2018 MOUNA D Primary MOUNA D [place] [id number] S Insurance:CONFUCIANISM YODERDOB: [facility] Number: [id number], [place] [id number] Repository [address]Sdu: (330) Date:2018-02-26 () 02/26/2018 Secondary MOUNA D [place] Insurance:IMMERGRUNPo YODERDOB: [facility] Number: [id number] [id number] Repository Date:[id number] [facility], [place] [address]LD: 02/26/2018 Tertiary NOT GIVENUNK [place] Insurance:SELF PAY [facility] Effective Repository Date:2018-02-26 02/26/2018 MOUNA D Primary MOUNA D [place] [id number] S Insurance:CONFUCIANISM YODERDOB: [facility] RDAPPLE [facility] Number: [id number] [id number] Repository [address]Yrn: (330) Date:2018-02-26 [phone] (HP) 02/26/2018 Secondary NOT GIVENUNK Juan Carlos Insurance:SELF PAY [facility] Number: Effective Repository Date:2018-02-26 01/21/2018 MOUNA D Primary MOUNA D Juan Carlos [id number] S Insurance:CONFUCIANISM YODERDOB: [facility] Number: [id number] [id number] Repository [address]Box: ([phone]) Date:2018-01-21 [phone] (HP) 01/21/2018 Secondary NOT GIVENUNK Juan Carlos Insurance:SELF PAY [facility] Number: Effective Repository Date:2018-01-21 04/30/2017 MOUNA D Primary MOUNA D [facility] YODERDOB: Insurance:SELF YODERDOB[facility]: [id number] Repository [place] Effective [address] [place], [place] Date:2017-04-30 - [place], [place] [address]Yxq: [phone] Name:[id number]: [phone] (HP)Tel: [phone]) (HP) (WP) [phone] (WP)
== END 2018-01-21 20:08 | disposition home or self-care (01) ==
PROVIDERS: Emergency Provider Emergency Medicine; Family Provider Family Medicine; PCP Family Medicine
DX: N39.0 Urinary tract infection, site not specified (principal); R51 Headache; H53.8 Other visual disturbances; R01.1 Cardiac murmur, unspecified; E66.9 Obesity, unspecified; I49.1 Atrial premature depolarization; I49.3 Ventricular premature depolarization; I11.0 Hypertensive heart disease with heart failure; I50.9 Heart failure, unspecified; Z79.899 Other long term (current) drug therapy
CPT/HCPCS: 71046; 80053; 81001; 84484; 85025; 87086; 87088; 87186; 93005; 99285; J7030; A4216

== ENCOUNTER 2018-02-26 13:57 | Emergency (ER) | payer OTHER, SELFPAY ==
[2018-02-26 13:58] VITALS: BP 156/86; PULSE 78; RESP 16; TEMP 37.8; O2SAT 94; BMI 31.3
[2018-02-26 14:54] VITALS: BP 192/91
[2018-02-26 14:57] LABS: Bacteria 0 SEEN /hpf (None Seen); Mucous, Urine 0 SEEN /hpf (<or=2+); Squamous Epithelial Cells - UA 0 SEEN /hpf (0-5); White Blood Cells 0 SEEN /hpf (0-5)
[2018-02-26 15:00] LABS: Color, Urine Yellow (Yellow); Glucose, Dipstick Normal (Normal); Ketone-Dipstick 50 mg/dl (Negative); Leukocyte Esterase-Dipstick Negative /ul (Negative); Nitrite-Dipstick Negative (Negative); Occult Blood-Urine 25 /ul (Negative); Protein-Dipstick 100 mg/dl (Negative); Specific Gravity, Urine 1.015 (1.002-1.030); Urine Bilirubin Dipstick Negative (Negative); Urine Clarity Clear (Clear); Urine Urobilinogen Normal (Normal)
[2018-02-26 15:11] LABS: Red Blood Cells-Urine 0-5 SEEN /hpf (0-5)
--- NOTE | 2018-02-26 15:18 | CT_ITS ---
STUDY: CT ABDOMEN AND PELVIS WITHOUT CONTRAST REASON FOR EXAM: Male, 77 years old. Left flank pain for 3 days RADIATION DOSAGE (If Supplied By Facility): CTDIvol = ( 18.06 ) mGy, DLP = ( 1200.43 ) mGycm TECHNIQUE: Transaxial images were obtained from the dome of the diaphragm to the symphysis pubis without oral contrast, and without intravenous contrast. Sagittal and coronal images were reconstructed. Individualized dose optimization techniques were used for this CT. COMPARISON: None. FINDINGS: There is minor atelectasis within the dependent portion of the lungs. Mild prominence of the cardiac silhouette.. Mild fatty infiltration of the liver without mass or bile duct dilatation. Large partially calcified gallstone without evidence for acute cholecystitis Normal-sized spleen demonstrating tiny hypoattenuated density likely of no significance. Normal pancreas. Normal bilateral adrenal glands. Mild renal pelvocaliectasis on the right in association with extrarenal pelvis but no significant hydronephrosis or ureteral calculus. Tiny cyst in the upper pole the right kidney There is swelling of the left kidney in association with stranding in the perinephric fat due to moderate left hydroureteronephrosis secondary to a calculus in the mid pelvic ureter measuring approximately 4.7 mm. No renal mass Normal visualized stomach. Normal small intestine. Minor diverticular changes of the sigmoid and distal descending colon without evidence for acute diverticulitis.. No evidence for acute appendicitis. Atherosclerotic changes of the aorta without evidence for aneurysm. Normal inferior vena cava. Normal retroperitoneum. Nonspecific enlargement of the prostate imaging upon the base of bladder which is incompletely distended and thick-walled. Normal abdominal wall. Lumbar spine demonstrates moderate spondylosis. CT/Abdomen/Pelvis W IV Cont ONLY IMPRESSION: Moderate left hydroureteronephrosis secondary to calculus in the mid pelvic ureter measuring approximately 4.7 mm Cholelithiasis without evidence for acute cholecystitis. Other findings as above Electronically Signed: Chirag Ashton MD at 16:40 EST , Service support ,
--- NOTE | 2018-02-26 15:18 | RAD_ITS ---
STUDY: X-RAY CHEST REASON FOR EXAM: Male, 77 years old. Chest pain. Flank pain. TECHNIQUE: Single AP portable view of the chest. COMPARISON: None. FINDINGS: The lungs are clear and expanded. There is no demonstrated pleural abnormality. There is borderline cardiomegaly. Normal mediastinum and elvie. Normal visualized pulmonary arteries. There is atherosclerotic calcification of the aortic arch with tortuosity. There are diffuse degenerative changes of the visualized thoracic spine. Normal visualized ribs, clavicles, and shoulders. There is no demonstrated abnormality of the visualized soft tissue structures of the upper abdomen. RAD/Chest 1 View (Portable) IMPRESSION: No acute abnormality is seen. Electronically Signed: Arthur Gonzalez MD at 15:57 EST Tel [phone], Service support ,
[2018-02-26] MEDS: Morphine 4 MG/ML Syringe IV (15:28)
[2018-02-26] MEDS: Ondansetron 4 MG/2 ML Vial IV (15:28)
[2018-02-26] MEDS: 0.9% Normal Saline 1,000 ML 1000 ML IV (15:28)
[2018-02-26 15:30] LABS: Absolute Lymphocyte Count 1.35 X10^3/ul (0.83-4.51); Absolute Neutrophil Count 7.1 X10^3/uL (2.0-7.7); Basophil# 0.01 X10^3/uL; Basophil% 0.1 % (0-1); Eosinophil# 0.05 X10^3/uL; Eosinophils% 0.5 % (0-5); Hematocrit 43.2 % (40-54); Hemoglobin 14.5 g/dl (13.0-16.5); Lymphocyte # 1.35 X10^3/ul (4.0); Lymphocyte % 14.4 % (19-41); Mean Corp Hgb Conc 33.6 g/gl (32-36); Mean Corpuscular Hgb 33.4 pg (27.0-32.0); Mean Corpuscular Volume 99.5 fL (80-94); Mean Platelet Vol. 9.2 fl (6.2-12.0); Monocyte# 0.87 X10^3/uL; Monocyte% 9.3 % (0-10); Neutrophil # 7.09 X10^3/uL (2.7-7.7); Neutrophil % 75.5 % (47-70); Platelet Count 216 K/mm3 (150-450); RBC Distribution Width CV 13.7 % (11.6-14.6); RBC Distribution Width SD 49.4 fl (35.1-43.9); Red Blood Count 4.34 M/mm3 (4.6-6.2); White Blood Count 9.4 K/mm3 (4.4-11.0)
[2018-02-26 15:31] LABS: POSITIVE COUNT NO; POSITIVE DIFFERENTIAL NO; POSITIVE MORPHOLOGY NO
[2018-02-26 15:45] LABS: ALB/GLOB Ratio 0.9 RATIO (0.9-2.4); AST(SGOT) 21 U/L (15-37); Alanine Aminotransfer ALT/SGPT 31 U/L (16-61); Albumin, Serum 3.8 g/dL (3.2-5.0); Alkaline Phosphatase 51 U/L (45-117); Anion Gap 7 (5-15); BUN 16 mg/dL (7-18); BUN/Creat Ratio 11.2 RATIO (10-20); Calcium,Total 8.9 mg/dL (8.5-10.1); Chloride 105 mmol/L (98-107); Creatinine, Serum 1.43 mg/dL (0.70-1.30); EST Glomerular Filtration Rate 51 mL/min (>60); Est Glom Filt Rate - Afr Amer 62 mL/min (>60); Estimated Creatinine Clearance 41.73 ml/min; Globulin 4.3 g/dL (2.2-4.2); Glucose 108 mg/dL (74-106); Lipase 84 U/L (73-393); Potassium 4.1 mmol/L (3.5-5.1); Protein, Total 8.1 g/dL (6.4-8.2); Sodium Level 138 mmol/L (136-145)
--- NOTE | 2018-02-26 17:01 | ED.VISSUMM ---
- ER Visit Summary Date of Service: 02/26/18 Chief Complaint: Left flank pain History of Present Illness: The patient is a 77 M with increasing left flank pain for 4 days. The pain is in his left flank and sometimes radiates to his abdomen diffusely. He feels ill and has a mild headache. Sometimes the pain causes him to be short of breath. He missed his cardiology appointment today because he felt ill. He has a history of kidney stones as well as bladder infections. He also reports a history of hypertension and hyperlipidemia. Denies any history of lithotripsy, stents, or other urologic procedures. He passed his kidney stone in the past spontaneously. Physical Examination: Hypertensive. Temperature 100.1. Otherwise vitals unremarkable. Patient appears uncomfortable but is not toxic or in distress. Heart regular. Lungs clear. Left flank tender to palpation. No guarding or rebound. Extremities nontender with good strength and sensation. Test Results: EKG showed sinus rhythm with PVCs at a rate of 69. Chest x-ray showed nothing acute. CBC unremarkable. Creatinine 1.43 and glucose 108. Hepatic panel and lipase unremarkable. Urinalysis shows very small amount of bleeding. Troponin normal. CT abdomen showed left hydroureter nephrosis with a 4.7 mm mid pelvic ureter stone. He also has cholelithiasis without cholecystitis. Emergency Department Course and Treatment: Patient was treated with fluids, morphine, and Zofran while awaiting results. He has a history of kidney stones. I believe this stone is causing his left flank pain. His creatinine is elevated from baseline at 1.43. He is not septic and his urine does not show signs of infection. Dr. Warren was paged, but at the time of dictation, he had not yet called back. The patient would like to go home. He will be prescribed Flomax, Percocet, Zofran, and he will call urology tomorrow for follow-up. Prior to discharge, the patient had a pulse ox in the high 80s. He ambulated and dropped to 85. He did not have any other symptoms. I did advise admission for hypoxia evaluation. The patient declined. He would like to go home and follow-up with his doctors. He will return if he has any new or worsening issues Treatment Plan: As above Disposition: Discharge Impression: 1. Left ureteral colic 2. Elevated creatinine This note was generated with [employer] dictation software. It may contain incorrect words, spelling, and punctuation that were not noted in review of the chart prior to signing ED Disposition - Plan for ED Patient: Disposition: Home or Assisted Living Chief Complaint: Flank Pain Instructions: ED Stone Renal W Colic Prescriptions: Oxycodone HCl/Acetaminophen [Percocet 5/325] 1 tab PO Q6H PRN PRN 3 Days #12 tab PRN Reason: Pain Ondansetron [Zofran Odt] 4 mg PO Q8H PRN PRN #10 tab PRN Reason: Nausea Tamsulosin HCl [Flomax] 0.4 mg PO DAILY #7 cap Referrals: Mustapha Valverde MD [STAFF PHYSICIAN] -
--- NOTE | 2018-02-26 17:06 | ED.DEP ---
ED Disposition - Plan for ED Patient: Chief Complaint: Flank Pain Instructions: ED Stone Renal W Colic Prescriptions: Oxycodone HCl/Acetaminophen [Percocet 5/325] 1 tab PO Q6H PRN PRN 3 Days #12 tab PRN Reason: Pain Ondansetron [Zofran Odt] 4 mg PO Q8H PRN PRN #10 tab PRN Reason: Nausea Tamsulosin HCl [Flomax] 0.4 mg PO DAILY #7 cap Referrals: Mustapha Valverde MD [STAFF PHYSICIAN] -
[2018-02-26 17:41] VITALS: BP 185/110; PULSE 81; RESP 18; O2SAT 87
[2018-02-26 17:53] VITALS: BP 185/110; PULSE 81; RESP 18; O2SAT 89
--- NOTE | 2018-02-26 17:56 | ED.RN ---
dr aware of bp and po. in to talk with pt and family. pt wishes to go home. ok with this. dc inst given
--- OUTSIDE RECORDS SUMMARY | 2018-05-03 15:29 | XMS RPT_ITS ---
:1940 Author Organization OHIP Support Name Relationship Address Phone R Unavailable Unavailable Unavailable DANIEL MOORE Unavailable [address] + [place] [address] R Unavailable Unavailable Unavailable ARLETTE MOOREON Unavailable [address] + [place] [address] R Unavailable Unavailable Unavailable ARLETTE MOOREON Unavailable [address] + [place] [address] R Unavailable Unavailable Unavailable MOOREARLETTEON Unavailable [address] + [place] [address] R Unavailable Unavailable Unavailable S Unavailable Unavailable Unavailable ARLETTE MOOREON Unavailable [address] + [place] [address] S Unavailable Unavailable Unavailable MOORE, NEISHA Unavailable [address] + [place] [address] ARLETTE MOOREON Unavailable [address] + [place] [address] S Unavailable Unavailable Unavailable MOORE, NEISHA Unavailable [address] + [place] [address] MOOREARLETTEON Unavailable [address] + [place] [address] MOORE, NEISHA Unavailable [address] + [place] [address] MOORE, NEISHA Unavailable [address] + [place] [address] Care Team Providers Name Role Phone DAMIR GOVEA DO Attending Unavailable CELIA DO, DAMIR W Primary Care Unavailable Cinthya Parada Attending Unavailable Celia, Damir Primary Care Unavailable Cristine Stone Attending Unavailable Celia, Damir Primary Care Unavailable Ramiro Jarrell Attending Unavailable Celia, Damir Primary Care Unavailable White, Buffy Admitting Unavailable White, Buffy Referring Unavailable Abram, Zafar Consulting Unavailable Kotsonis, Vinh F Attending Unavailable White, Buffy Admitting Unavailable White, Buffy Attending Unavailable White, Buffy Referring Unavailable Celia, Damir Primary Care Unavailable White, Buffy Consulting Unavailable White, Buffy Admitting Unavailable Kotsonis, Vinh F Attending Unavailable White, Buffy Referring Unavailable Celia, Damir Primary Care Unavailable Abram, Zafar Consulting Unavailable Kotsonis, Vinh F Consulting Unavailable White, Buffy Admitting Unavailable Kotsonis, Vinh F Attending Unavailable White, Buffy Referring Unavailable Celia, Damir Primary Care Unavailable Abram, Zafar Consulting Unavailable Kotsonis, Vinh F Consulting Unavailable PROBLEMS PROBLEMS DATE TYPE CONDITION / CODE ATTENDING STATUS SOURCE 02/26/2018 Unknown N20.0 - CalcRamiro Yoon Active [facility] kidney / Community N20.0(ICD-10) Hospital Repository PROCEDURES PROCEDURES No Procedure Records FoundRESULTS RESULTS 12 LEAD ELECTROCARDIOGRAM Observed: 03/04/2018 Status: F Source: [place] 1:08 PM [facility] HOSPITAL REPOSITORY [facility] Cardiovascular Services [address] [place] [address] 12 Lead EKG 03/02/18 2257 MR#: [id number] Acct: [id number] Name: MOUNA MOORE Rep #: [id number] : 1940 77 From: Clifton John MD Attending Dr: Vinh Silvestre MD Status: DIS IN Ordering Dr: Brianne Barrera DO Date: 03/02/18 Location: IN3 Sex: M C Admitted: 03/02/18 Test Reason [...] normal ECG Confirmed by YUNIER HUANG, CLIFTON ([id number]), video news editor DEMETRIUS TAM ([id number]) on 03/04/2018 1:08:27 PM Referred By: Buffy Tariq Confirmed By:CLIFTON JOHN MD 03/04/18 1308 Date Clifton John MD CC: Buffy Tariq; Vinh Silvestre MD; Damir Govea MD; Brianne Barrera DO Signed DISCHARGE SUMMARY Observed: 03/04/2018 Status: F Source: [place] 8:41 AM [facility] REPOSITORY [facility] Medical Records Department [address] [place] [address] Discharge Summary 03/04/18 0832 MR#: [id number] Acct: [id number] Name: MOUNA MOORE Rep #: [id number] : 1940 77 From: Vinh Silvestre MD PCP: Damir Govea MD Status: ADM IN Location: [place] [address] Discharge Date and Diagnosis - Problem List [...] Anxiety and Depression who presents to the [facility] ED on 03/02/18 with history of [...] PRN PRN 03/03/18 Primary Care Physician: Damir Govea DO [Primary Care Provider] - Please follow [...] applicable Code Visit Inpatient E AND M: [id number] Disch Hosp 03/04/18 0841 <Electronically signed by Vinh Silvestre MD> Date Vinh Silvestre MD Cosigner Signature (if applicable): Date CC: Vinh Silvestre MD; Damir Govea MD Signed DISCHARGE INSTRUCTION Observed: 03/04/2018 Status: F Source: [place] 8:32 [facility] REPOSITORY [facility] Medical Records Department [address] [place] [address] Instructions for Home/Discharge Instructions 03/04/18 0830 MR#: [id number] Acct: [id number] Name: MOUNA MOORE Rep #: [id number] : 1940 77 From: Vinh Silvestre MD PCP: Damir Govea MD Status: ADM IN - Discharge Diagnoses [...] PRN PRN 03/03/18 Primary Care Physician: Damir Govea DO [Primary Care Provider] - Please follow up with your Primary Care Physician in: 3-5 days Test Results: Test results from this visit will be discussed in further detail at your follow-up appointment, if applicable. Please Follow Up With: Mustapha Valverde MD When: 2-3 weeks 03/04/18 0831 <Electronically signed by Vinh Silvestre MD> Date Vinh Silvestre MD CC: Mustapha Valverde MD; Damir Govea MD Signed OPERATIVE REPORT Observed: 03/03/2018 Status: F Source: [place] 1:48 PM [facility] REPOSITORY [facility] Medical Records Department [address] [place] [address] Operative Report 03/03/18 1346 MR#: [id number] Acct: [id number] Name: MOUNA MOORE Rep #: [id number] : 1940 77 From: Mustapha Valverde MD PCP: Damir Govea MD Status: ADM IN Location: [address] Problem List (1) Nephrolithiasis Status: Acute [...] went into the bladder with a 21 Pashto rigid cystourethroscope once I got inside the [...] CC: Buffy Tariq; Mustapha Valverde MD; Damir Govea MD Signed URINALYSIS, COMPLETE Collected: 03/03/2018 Status: F Source: [place] 11:25 AM [facility] REPOSITORY Order Comment: Order Date: 03/02/18 How [...] URINE SEEN Performed By: #### L400.0001 #### [facility] [place], [address] CONSULTATION Observed: 03/03/2018 Status: F Source: [place] 7:43 AM [facility] REPOSITORY [facility] Medical Records Department [address] [place] [address] Consultation 03/03/18 0741 MR#: [id number] Acct: [id number] Name: MOUNA MOORE Rep #: [id number] : 1940 77 From: Mustapha Valverde MD PCP: Damir Govea MD Status: ADM IN [facility] Problem List (1) Nephrolithiasis Status: Acute (2) [...] CC: Buffy Tariq; Mustapha Valverde MD; Damir Govea MD Signed BASIC METABOLIC Collected: 03/03/2018 Status: F Source: [place] PROFILE (BMP) 5:06 AM [facility] REPOSITORY TYPE CODE TESTS RESULT OUT OF [...] GAP 10 Performed By: #### L500.2500 #### [facility] [address] [place], [address] CBC W/DIFF, AUTOMATED Collected: 03/03/2018 Status: F Source: [place] 5:06 AM [facility] REPOSITORY TYPE CODE TESTS RESULT OUT OF [...] Lymph 0.88 Performed By: #### L100.0100 #### [facility] [address] [facility] [place], [address] HISTORY AND PHYSICAL Observed: 03/03/2018 Status: F Source: [place] EXAM 12:58 AM [facility] REPOSITORY [facility] Medical Records Department [address] [place] [address] History and Physical 03/02/18 4325 MR#: [id number] Acct: [id number] Name: MOOREIHSAN TOLENTINOPAYAL Jiménez Rep #: [id number] : 1940 77 From: Buffy Tariq PCP: Damir Govea MD Status: ADM IN Location: [place] [address] Problem List (1) Nephrolithiasis Status: Acute (2) [...] Anxiety and Depression who presents to the [facility] ED on 03/02/18 with history of [...] Anxiety and Depression who presents to the [facility] ED on 03/02/18 with history of [...] heparin. Code Visit Inpatient E AND M: 16182 Init Hosp L3 03/03/18 0058 <Electronically signed by Buffy Tariq > Date Buffy Tariq Cosigner Signature: Date (if applicable) CC: Buffy Tariq; Damir Govea MD Signed EMERGENCY DEPARTMENT Observed: 03/02/2018 Status: F Source: [place] SUMMARY 11:53 PM [facility] REPOSITORY [facility] Medical Records Department [address] [place] [address] Emergency Department Summary 03/02/18 2349 MR#: [id number] Acct: [id number] Name: MOOREIHSAN TOLENTINOPAYAL Jiménez Rep #: [id number] : 1940 77 From: Brianne Barrera DO PCP: Damir Govea MD Status: REG ER - ER Visit [...] Intractable pain] This note was generated with Skysheet dictation software. It may contain incorrect words, spelling, and punctuation that were not noted in review of the chart prior to signing ED Disposition - Plan for ED Patient: Chief Complaint: Flank Pain Referrals: Damir Govea, [Primary Care Provider] - What to do if you have Problems For any increased pain, shortness of breath, bleeding, nausea or vomiting, chest pain, or any unexpected problems, contact your Primary Care Provider. Call [facility] ([phone]) or report to the closest Emergency Room. Call 911 if necessary. 03/02/18 4905 <Electronically signed by Brianne Barrera DO> Date Brianne Barrera DO Cosigner Signature (If Indicated): Date CC: Damir Govea MD CBC W/DIFF, AUTOMATED Collected: 03/02/2018 Status: F Source: [place] 11:15 PM [facility] REPOSITORY TYPE CODE TESTS RESULT OUT OF [...] Lymph 0.90 Performed By: #### L100.0100 #### [facility] [address] [facility] [address] [place], [place], [address] BASIC METABOLIC Collected: 03/02/2018 Status: F Source: [place] PROFILE (BMP) 11:15 PM [facility] REPOSITORY TYPE CODE TESTS RESULT OUT OF [...] 10 Performed By: #### L500.2500, L501.4010 #### [facility] [address] [facility] [place], [address] TROPONIN-I Collected: 03/02/2018 Status: F Source: [place] 11:15 PM [facility] REPOSITORY TYPE CODE TESTS RESULT OUT OF RANGE REFERENCE UNITS LAB L501.4010 <0.045 ng/mL Normal < 0.015 TROPONIN-I Result Comment: TROPONIN-I EXPECTED VALUES <0.045 Negative 0.045 - 0.590 Consistent with Cardiac Damage > OR = 0.600 Critical Value Not every elevated troponin is indicative of NV. These values should be used with clinical judgement in examining the patient's clinical picture for diagnosis. To establish a diagnosis of NV versus myocardial injury, there must be a demonstrated rise and/or fall in the troponin values, in addition to ischemic symptoms, EKG changes, new regional wall motion abnormality, and/or angiographical evidence. PLEASE NOTE: REFERENCE RANGES EDITED 17 Performed By: #### L500.2500, L501.4010 #### [facility] [address] [place], [address] BNP,B-TYPE NATRIURETIC Collected: 03/02/2018 Status: F Source: [place] PEPTIDE 11:15 PM [facility] REPOSITORY TYPE CODE TESTS RESULT OUT OF RANGE REFERENCE UNITS LAB L503.6620 0-100 pg/mL High B-TYPE 479.1 ALDA PEP Performed By: #### L503.6620 #### [facility] [address] [place], [address] MAGNESIUM Collected: 03/02/2018 Status: F Source: [place] 11:15 PM [facility] REPOSITORY TYPE CODE TESTS RESULT OUT OF RANGE REFERENCE UNITS LAB L501.5200 1.6-2.6 mg/dL Normal MG 2.3 Performed By: #### L501.5200 #### [facility] [address] [place], [address] ABDOMEN/PELVIS WITHOUT Observed: 03/02/2018 Status: F Source: [place] CONT 10:45 PM [facility] HOSPITAL REPOSITORY [facility] Imaging Services [address] [place] [address] Abdomen/Pelvis without Cont MR#: [id number] Acct: [id number] Name: MOUNA MOORE Tino Rep #: [id number] : 1940 M 77 From: Debbi Vitale MD PCP: Damir Govea MD Status: REG ER Study: Abdomen/Pelvis without Cont Date of Exam: 03/02/18 Exam# [id number] Ordering Dr: Brianne Barrera DO STUDY: CT [...] Tel , Service support , CC: Damir Govea MD; Brianne Barrera DO Transportation Engineer: Signed CHEST 1 VIEW Observed: 03/02/2018 Status: F Source: [place] (PORTABLE) 10:45 PM [facility] HOSPITAL REPOSITORY [facility] Imaging Services [address] [facility] [place] [address] Chest 1 View (Portable) MR#: [id number] Acct: [id number] Name: MOUNA MOORE Rep #: [id number] : 1940 M 77 From: Debbi Vitale MD PCP: Damir Govea MD Status: REG ER Study: Chest 1 View (Portable) Date of Exam: 03/02/18 Exam# [id number] Ordering Dr: Brianne Barrera DO STUDY: X-RAY [...] Tel , Service support , CC: Damir Govea MD; Brianne Barrera DO Transportation Engineer: Signed DISCHARGE INSTRUCTION Observed: 02/26/2018 Status: F Source: [place] 11:50 PM [facility] HOSPITAL REPOSITORY [facility] Medical Records Department [address] [place] [address] Discharge Instruction 02/26/181705 MR#: [id number] Acct: [id number] Name: MOUNA MOORE Rep #: [id number] : 1940 77 From: Ramiro Jarrell MD PCP: Damir Govea MD Status: DEP ER ED Disposition - [...] your Primary Care Provider. Call [facility] ([phone]) or report to the closest Emergency Room. Call 911 if necessary. 02/26/18 5530 <Electronically signed by Ramiro Jarrell MD> Date Ramiro Jarrell MD Cosigner Signature (If Indicated): Date CC: Damir Govea MD EMERGENCY DEPARTMENT Observed: 02/26/2018 Status: F Source: [place] SUMMARY 11:50 PM [facility] REPOSITORY [facility] Medical Records Department [address] [place] [address] Emergency Department Summary 02/26/181700 MR#: [id number] Acct: [id number] Name: IHSAN MOOREPAYAL Jiménez Rep #: [id number] : 1940 77 From: Ramiro Jarrell MD PCP: Damir Govea MD Status: DEP ER - ER Visit [...] Elevated creatinine This note was generated with Skysheet dictation software. It may contain incorrect words, [...] your Primary Care Provider. Call [facility] ([phone]) or report to the closest Emergency Room. Call 911 if necessary. 02/26/18 2350 <Electronically signed by Ramiro Jarrell MD> Date Ramiro Jarrell MD Cosigner Signature (If Indicated): Date CC: Damir Govea MD CHEST 1 VIEW Observed: 02/26/2018 Status: F Source: [place] (PORTABLE) 3:20 PM [facility] REPOSITORY [facility] Imaging Services [address] [place] [address] Chest 1 View (Portable) MR#: [id number] Acct: [id number] Name: MOUNA MOORE Rep #: [id number] : 1940 M 77 From: Arthur Gonzalez MD PCP: Damir Govea MD Status: REG ER Study: Chest 1 View (Portable) Date of Exam: 02/26/18 Exam# [id number] Ordering Dr: Ramiro Jarrell MD STUDY: X-RAY [...] Arthur Gonzalez MD at 15:57 EST Tel [phone], Service support , CC: Ramiro Jarrell MD; Damir Govea MD Transportation Engineer: Signed ABDOMEN/PELVIS W IV CONT Observed: 02/26/2018 Status: F Source: [place] ONLY 3:20 PM [facility] REPOSITORY [facility] Imaging Services [address] [place] [address] Abdomen/Pelvis W IV Cont ONLY MR#: [id number] Acct: [id number] Name: MOUNA MOORE Rep #: [id number] : 1940 77 From: Chirag Ashton MD PCP: Damir Govea MD Status: REG ER Study: Abdomen/Pelvis W IV Cont ONLY Date of Exam: 02/26/18 Exam# [id number] Ordering Dr: Ramiro Jarrell MD STUDY: CT [...] support , CC: Ramiro Jarrell MD; Damir Govea MD Transportation Engineer: Signed CBC W/DIFF, AUTOMATED Collected: 02/26/2018 Status: F Source: [place] 3:05 PM [facility] REPOSITORY TYPE CODE TESTS RESULT OUT OF [...] Lymph 1.35 Performed By: #### L100.0100 #### [facility] [address] [place], [address] COMPREHENSIVE METABOLIC Collected: 02/26/2018 Status: F Source: [place] [facility] 3:05 PM [facility] REPOSITORY TYPE CODE TESTS RESULT OUT OF [...] Performed By: #### L500.4050, L501.2450, L501.4010 #### [facility] [place], [address] LIPASE Collected: 02/26/2018 Status: F Source: [place] 3:05 PM [facility] REPOSITORY TYPE CODE TESTS RESULT OUT OF RANGE REFERENCE UNITS LAB L501.2450 73-393 U/L Normal LIPASE 84 Performed By: #### L500.4050, L501.2450, L501.4010 #### [facility] [address] [place], [address] TROPONIN-I Collected: 02/26/2018 Status: F Source: [place] 3:05 PM [facility] REPOSITORY TYPE CODE TESTS RESULT OUT OF RANGE REFERENCE UNITS LAB L501.4010 <0.045 ng/mL Normal 0.016 TROPONIN-I Result Comment: TROPONIN-I EXPECTED VALUES <0.045 Negative 0.045 - 0.590 Consistent with Cardiac Damage > OR = 0.600 Critical Value Not every elevated troponin is indicative of NV. These values should be used with clinical judgement in examining the patient's clinical picture for diagnosis. To establish a diagnosis of NV versus myocardial injury, there must be a demonstrated rise and/or fall in the troponin values, in addition to ischemic symptoms, EKG changes, new regional wall motion abnormality, and/or angiographical evidence. PLEASE NOTE: REFERENCE RANGES EDITED 17 Performed By: #### L500.4050, L501.2450, L501.4010 #### [facility] [address] [place], [address] URINALYSIS, COMPLETE Collected: 02/26/2018 Status: F Source: [place] 2:50 PM [facility] RE[facility] Order Comment: How was Urine Obtained? [...] URINE SEEN Performed By: #### L400.0001 #### [facility] [address] [facility] [place], [address] 12 LEAD ELECTROCARDIOGRAM Observed: 01/24/2018 Status: F Source: [place] 9:09 AM [facility] REPOSITORY [facility] Cardiovascular Services [address] [place] [address] 12 Lead EKG 01/21/18 1613 MR#: [id number] Acct: [id number] Name: MOUNA MOORE Rep #: [id number] : 1940 77 From: Clifton John MD [...] ECG Confirmed by YUNIER HUANG, CLIFTON ([id number]), video news editor KATHERINE LOVE ([id number]) on 01/24/2018 9:09:03 AM Referred By: MASSIEL Confirmed By:CLIFTON JOHN MD 01/24/18 0909 Date Clifton John MD CC: Citnhya Parada MD; Damir Govea MD Signed EMERGENCY DEPARTMENT Observed: 01/22/2018 Status: F Source: [place] SUMMARY 12:55 AM [facility] REPOSITORY [facility] Medical Records Department [address] [place] [address] Emergency Department Summary 01/21/18 1559 MR#: [id number] Acct: [id number] Name: MOUNA MOORE Rep #: [id number] : 1940 77 From: Cinthya Parada MD PCP: Damir Govea MD Status: DEP ER - ER Visit [...] Complicated UTI This note was generated with Skysheet dictation software. It may contain incorrect words, spelling, and punctuation that were not noted in review of the chart prior to signing ED Disposition - Plan for ED Patient: Disposition: Home or Assisted Living Chief Complaint: Hypertension Instructions: ED UTI Cystitis Male Prescriptions: Levofloxacin [Levaquin] 750 mg PO DAILY #5 tab Referrals: Damir Govea, DO [Primary Care Provider] - 3-5 Days if not improving Additional Instructions: You have a urinary tract infection. Please take the antibiotic as prescribed. Use osxb-rma-tmjqszv pain medication such as Tylenol or ibuprofen [...] problems, contact your Primary Care Provider. Call [employer] [facility] ([phone]) or report to the closest Emergency Room. Call 911 if necessary. 01/22/18 0055 <Electronically signed by Cinthya Parada MD> Date Cinthya Parada MD Cosigner Signature (If Indicated): Date CC: Damir Govea MD DISCHARGE INSTRUCTION Observed: 01/21/2018 Status: F Source: [place] 11:31 PM [facility] REPOSITORY [facility] Medical Records Department [address] [place] [address] Discharge Instruction 01/21/181957 MR#: [id number] Acct: [id number] Name: MOOREMOUNA Rep #: [id number] : 1940 77 From: Cinthya Parada MD PCP: Damir Govea MD Status: [facility] ER ED Disposition - Plan for ED Patient: Disposition: Home or Assisted Living Chief Complaint: Hypertension Instructions: ED UTI Cystitis Male Prescriptions: Levofloxacin [Levaquin] 750 mg PO DAILY #5 tab Referrals: Damir Govea DO [Primary Care Provider] - 3-5 Days if not improving Additional Instructions: You have a urinary tract infection. Please take the antibiotic as prescribed. Use xjvk-sus-bcebsvy pain medication such as Tylenol or ibuprofen [...] your Primary Care Provider. Call [facility] ([phone]) or report to the closest Emergency Room. Call 911 if necessary. 01/21/18 9631 <Electronically signed by Cinthya Parada MD> Date Cinthya Parada MD Cosigner Signature (If Indicated): Date CC: Damir Govea MD URINALYSIS, COMPLETE Collected: 01/21/2018 Status: F Source: [place] 6:00 PM [facility] Order Comment: How was Urine Obtained? [...] URINE SEEN Performed By: #### L400.0001 #### [facility] [address] [place], [place], [address] Observed: 01/21/2018 Status: F Source: [place] CULTURE, URINE 6:00 PM [facility] RE[facility] Urine Culture ORGANISM 1: Presumptive E. coli [place] Count >100,000 Presumptive E. coli: REACTION Amoxacillin/Clavulanic [...] <=20 S (NF) indicates non-formulary drug at [facility]. Approval by Infectious Disease Specialist required before non-formulary drugs may be ordered and/or dispensed. Performed By: #### M100.0650 #### [facility] [address] [place], [place], [address] CHEST PA AND LATERAL Observed: 01/21/2018 Status: F Source: [place] 4:02 PM [facility] REPOSIT[facility] Imaging Services [address] [place] [address] Chest PA and Lateral MR#: [id number] Acct: [id number] Name: MOOREMOUNA Rep #: [id number] : 1940 M 77 From: Kadeem Alexis MD PCP: Damir Govea MD Status: REG ER Study: Chest PA and Lateral Date of Exam: 01/21/18 Exam# [id number] Ordering Dr: Cinthya Parada MD STUDY: X-RAY [...] support , CC: Cinthya Parada MD; Damir Govea MD Transportation Engineer: Signed CBC W/DIFF, AUTOMATED Collected: 01/21/2018 Status: F Source: [place] 4:00 PM [facility] TYPE CODE TESTS RESULT OUT OF [...] Lymph 1.97 Performed By: #### L100.0100 #### [facility] [address] [place], [place], [address] COMPREHENSIVE METABOLIC Collected: 01/21/2018 Status: F Source: [facility] 4:00 PM [facility] REPOSIT[facility] TYPE CODE TESTS RESULT OUT OF [...] 6 Performed By: #### L500.4050, L501.4010 #### [facility] [address] [facility] [place], [address] TROPONIN-I Collected: 01/21/2018 Status: F Source: [place] 4:00 PM [facility] REPOSIT[facility] TYPE CODE TESTS RESULT OUT OF RANGE REFERENCE UNITS LAB L501.4010 <0.045 ng/mL Normal < 0.015 TROPONIN-I Result Comment: TROPONIN-I EXPECTED VALUES <0.045 Negative 0.045 - 0.590 Consistent with Cardiac Damage > OR = 0.600 Critical Value Not every elevated troponin is indicative of NV. These values should be used with clinical judgement in examining the patient's clinical picture for diagnosis. To establish a diagnosis of NV versus myocardial injury, there must be a demonstrated rise and/or fall in the troponin values, in addition to ischemic symptoms, EKG changes, new regional wall motion abnormality, and/or angiographical evidence. PLEASE NOTE: REFERENCE RANGES EDITED 17 Performed By: #### L500.4050, L501.4010 #### [facility] Laboratory [address] [facility] [place], [address] XR CHEST 2 VIEWS Observed: 04/30/2017 Status: F [facility] REPOSITORY ORIGINAL XR CHEST [...] SEVERITY SOURCE 03/02/2018 Drug No Known Unknown [facility] Allergy/4160 Allergies/F00 Hospital 56120(SNOMED [id number](RXNOR Repository CT) M) ENCOUNTERS ENCOUNTERS ADMIT/DISCHARGE ACCOUNT NUMBER ADMITTING ENCOUNTER LOCATION SOURCE CLASS 03/03/2018 [id number] [place], Ambulatory BMSBuilding: Juan Carlos Buffy BMS.Formerly [facility] Repository 03/03/2018 [id number] White, Ambulatory BMSBuilding: Juan Carlos Buffy BMS.Formerly [facility] Repository 03/02/2018/03/04/19 [id number] White, Inpatient Ranger Ranger 19 Buffy Encounter [facility] ding:[id number] Repository : [id number]: 1 03/02/2018 [id number] White, Ambulatory BMSBuilding: Ranger Buffy BMS.Formerly [facility] Repository 02/26/2018/02/26/19 [id number] Emergency Ranger Juan Carlos 19 [facility] ding:ED Repository 02/26/2018 [id number] Ambulatory BMSBuilding: Juan Carlos BMS.[facility] Repository 01/21/2018/01/22/20 [id number] Emergency Ranger Ranger 18 [facility] ding:ED Repository 04/30/2017/05/01/19 [id number] Ambulatory [address] ding:[facility] Foundation Repository PAYERS PAYERS ENCOUNTER GUARANTOR PAYER SUBSCRIBER SOURCE 03/03/2018 MOUNA D Primary NOT GIVENUNK Juan Carlos [id number] S Insurance:SELF PAY [place], [place] Number: Effective Repository [id number]: ([phone]) Date:2018-03-02 () 03/03/2018 MOUNA D Primary NOT GIVENUNK Juan Carlos [id number] S Insurance:SELF PAY [place], [place] Number: Effective Repository [id number]: ([phone]) Date:2018-03-03 (HP) 03/02/2018 MOUNA D Primary MOUNA D Juan Carlos [id number] S Insurance:RELIGION YODERDOB: [facility] Number: [id number] [id number] Repository [address]Acc: ([phone]) Date:2018-03-02 () 03/02/2018 Secondary MOUNA D Ranger Insurance:IMMERGRUNPo YODERDOB: Pending sale to [facility] Number: [id number] [id number] Repository Date:[id number] [place] [address]WT: 03/02/2018 Tertiary NOT GIVENUNK Ranger Insurance:SELF PAY [facility] Number: Effective Repository Date:2018-03-02 03/02/2018 MOUNA D Primary NOT GIVENUNK Ranger [id number] S Insurance:SELF PAY [place] Number: Effective Repository 42018Rai: ([phone]) Date:2018-03-02 (HP) 02/26/2018 MOUNA D Primary MOUNA D Ranger [id number] S Insurance:RELIGION YODERDOB: [facility] Number: [id number] [id number] Repository [address]Flt: (330) Date:2018-02-26 () 02/26/2018 Secondary MOUNA D Ranger Insurance:IMMERGRUNPo YODERDOB: Pending sale to [facility] Number: [id number] [id number] Repository Date:[id number] B[address] [facility], [place] [address]SD: 02/26/2018 Tertiary NOT GIVENUNK Ranger Insurance:SELF [facility] Number: Effective Repository Date:2018-02-26 02/26/2018 MOUNA D Primary MOUNA D Ranger [id number] S Insurance:RELIGION YODERDOB: [facility] RDAPPLE [facility] Number: [id number], [place] [id number] Repository [address]Ttj: (330) Date:2018-02-26 [phone] (HP) 02/26/2018 Secondary NOT GIVENUNK Juan Carlos Insurance:SELF PAY [facility] Number: Effective Repository Date:2018-02-26 01/21/2018 MOUNA D Primary MOUNA D Juan Carlos [id number] S Insurance:RELIGION YODERDOB: [facility] Number: [id number] [id number] Repository [address]Uir: (330) Date:2018-01-21 [phone] (HP) 01/21/2018 Secondary NOT GIVENUNK Juan Carlos Insurance:SELF PAY [facility] Number: Effective Repository Date:2018-01-21 04/30/2017 MOUNA D Primary MOUNA D [facility] YODERDOB: Insurance:SELF YODERDOB[facility] Number: [id number] Repository [place] Effective [address] [place], [place] Date:2017-04-30 - [place], [place] [address]Xpm: [phone] Name:[id number]: [phone] (HP)Tel: [phone]) (HP) (WP) [phone] (WP)
== END 2018-02-26 17:57 | disposition home or self-care (01) ==
PROVIDERS: Emergency Provider Emergency Medicine; Family Provider Family Medicine; PCP Family Medicine
DX: N13.2 Hydronephrosis with renal and ureteral calculous obstruction (principal); R79.89 Other specified abnormal findings of blood chemistry; R51 Headache; R06.00 Dyspnea, unspecified; R07.9 Chest pain, unspecified; I49.3 Ventricular premature depolarization; K80.20 Calculus of gallbladder without cholecystitis without obstruction; I10 Essential (primary) hypertension; E78.00 Pure hypercholesterolemia, unspecified; Z87.442 Personal history of urinary calculi; Z87.448 Personal history of other diseases of urinary system; Z79.899 Other long term (current) drug therapy
CPT/HCPCS: 71045; 74177; 80053; 81001; 83690; 84484; 85025; 93005; 96361; 96374; 96375; 99285; J7030; Q9967; A4216; J2405

== ENCOUNTER 2018-03-02 22:27 | Inpatient (IN) | payer OTHER, SELFPAY ==
[2018-03-02 22:28] VITALS: PULSE 68; RESP 16; TEMP 36.8; O2SAT 91; BMI 32.4
--- NOTE | 2018-03-02 22:44 | EKG12_ITS ---
Test Reason : FLANK PAIN Blood Pressure : / mmHG Vent. Rate : 057 BPM Atrial Rate : 057 BPM P-R Int : 174 ms QRS Dur : 088 ms QT Int : 448 ms P-R-T Axes : -02 005 009 degrees QTc Int : 436 ms Sinus bradycardia with occasional Premature ventricular complexes Otherwise normal ECG Confirmed by YUNIER HUANG, LUZ ([id number]), editor book DEMETRIUS TAM ([id number]) on 03/04/2018 1:08:27 PM Referred By: Buffy Tariq Confirmed By:LUZ FAYE MD
--- NOTE | 2018-03-02 22:44 | CT_ITS ---
STUDY: CT ABDOMEN AND PELVIS WITHOUT CONTRAST REASON FOR EXAM: Male, 77 years old. Left flank pain with diaphoresis. RADIATION DOSAGE (If Supplied By Facility): CTDIvol = ( 11.86 ) mGy, DLP = ( 634.07 ) mGycm TECHNIQUE: Transaxial images were obtained from the dome of the diaphragm to the symphysis pubis without oral contrast, and without intravenous contrast. Sagittal and coronal images were reconstructed. Individualized dose optimization techniques were used for this CT. COMPARISON: 02/26/2018. FINDINGS: There is a 5 mm pleural-based nodule in the right lung base, associated with the major fissure. This is unchanged compared to the prior study. Visualized heart is normal. The liver is unremarkable. There is a 1.7 cm stone in the gallbladder. No evidence of acute pericholecystic inflammatory changes. There is a single calcification in the spleen consistent with old granulomatous disease. The adrenal glands are normal. The right kidney is normal. No stones or hydronephrosis. There is moderate left hydronephrosis with perinephric stranding. The left ureter is moderately dilated. There is a 5 x 3 mm stone in the left ureterovesical junction. This has advanced compared to the prior study. The aorta is normal in caliber. There is no free fluid, free air, or organized collection. No bowel obstruction or inflammatory change. Diverticulosis is noted, with no evidence of acute diverticulitis. Stool burden is mild. Urinary bladder is unremarkable. Normal abdominal wall. Normal osseous structures. CT/Abdomen/Pelvis without Cont IMPRESSION: 1. A 5 mm left ureteral stone at the UVJ, with moderate proximal hydroureteronephrosis. 2. Cholelithiasis. No evidence of acute cholecystitis. 3. Diverticulosis. No diverticulitis. 4. A 5 mm pleural-based nodule in the right lung base, likely fibrotic. Electronically Signed: Debbi Vitale MD at 23:32 EST Tel , Service support ,
--- NOTE | 2018-03-02 22:44 | RAD_ITS ---
STUDY: X-RAY CHEST REASON FOR EXAM: Male, 77 years old. Flank pain. TECHNIQUE: Flank pain. COMPARISON: 02/26/2018. FINDINGS: The lungs are clear and expanded. There is no demonstrated pleural abnormality. Normal size heart. Normal mediastinum and elvie. Normal visualized pulmonary arteries. Normal visualized aortic arch and descending thoracic aorta. Normal visualized thoracic spine. Normal visualized ribs, clavicles, and shoulders. There is no demonstrated abnormality of the visualized soft tissue structures of the upper abdomen. RAD/Chest 1 View (Portable) IMPRESSION: Normal x-ray examination of the chest. Electronically Signed: Debbi Vitale MD at 23:34 EST Tel , Service support ,
[2018-03-02] MEDS: 0.9% Normal Saline 1,000 ML 150 ML IV (23:00)
[2018-03-02 23:27] LABS: Absolute Neutrophil Count 5.5 X10^3/uL (2.0-7.7); Basophil# 0.01 X10^3/uL; Basophil% 0.1 % (0-1); Eosinophil# 0.04 X10^3/uL; Eosinophils% 0.6 % (0-5); Hematocrit 39.4 % (40-54); Hemoglobin 13.1 g/dl (13.0-16.5); Lymphocyte % 12.7 % (19-41); Mean Corp Hgb Conc 33.2 g/gl (32-36); Mean Corpuscular Volume 99.2 fL (80-94); Mean Platelet Vol. 8.9 fl (6.2-12.0); Monocyte# 0.66 X10^3/uL; Monocyte% 9.3 % (0-10); Neutrophil # 5.46 X10^3/uL (2.7-7.7); Platelet Count 239 K/mm3 (150-450); RBC Distribution Width CV 13.4 % (11.6-14.6); RBC Distribution Width SD 48.7 fl (35.1-43.9); Red Blood Count 3.97 M/mm3 (4.6-6.2); White Blood Count 7.1 K/mm3 (4.4-11.0)
[2018-03-02 23:29] LABS: POSITIVE COUNT NO; POSITIVE DIFFERENTIAL NO; POSITIVE MORPHOLOGY NO
[2018-03-02 23:39] LABS: Anion Gap 10 (5-15); BUN 17 mg/dL (7-18); BUN/Creat Ratio 12.6 RATIO (10-20); Calcium,Total 8.5 mg/dL (8.5-10.1); Chloride 104 mmol/L (98-107); Creatinine, Serum 1.35 mg/dL (0.70-1.30); EST Glomerular Filtration Rate 55 mL/min (>60); Est Glom Filt Rate - Afr Amer 66 mL/min (>60); Glucose 117 mg/dL (74-106); Potassium 4.1 mmol/L (3.5-5.1); Sodium Level 136 mmol/L (136-145)
--- NOTE | 2018-03-02 23:49 | ED.VISSUMM ---
- ER Visit Summary Date of Service: 03/02/18 Chief Complaint: [Flank pain] History of Present Illness: The patient is a 77 M [presents the emergency department with complaint of left-sided flank pain and abdominal pain that started 2 weeks ago initially. Patient was seen in the emergency department on the 16th of the month and diagnosed with a 4.7 mm stone at the left kidney. Patient states that the pain never really resolved and he continues to have significant pain. Family also states that last time he was in the emergency department he had a low oxygen levels in the 80s and was told to follow-up with his primary care physician. Patient has had subjective fever at home. He denies any cough. He denies any chest pain. Patient received 10 mg of morphine from EMS on arrival to the emergency department he has no pain.] Physical Examination: [HEENT-PERRLA, EOMI. Cranial nerves II through XII grossly intact. TMs clear. Mucous membranes moist. No adenopathy. Cardiovascular-regular rate and rhythm without murmur or ectopy Lungs-good aeration bilaterally. Patient has some faint rales in the bases. No accessory muscle use or retractions. Abdomen-normoactive bowel sounds, soft. Patient has tenderness palpation over the left lower quadrant with some guarding. There is no rebound, rigidity, or perineal signs. Extremities-intact ?4, normal range of motion, normal pulses, atraumatic] Test Results: [CBC with differential white count of 7.1, hemoglobin 13, hematocrit 39, platelets 239. Chemistries unremarkable. BUN was 17 and creatinine 1.35. Troponin is less than 0.015. EKG obtained arrival shows sinus bradycardia with a rate of 57 bpm with occasional PVCs. Chest x-ray showed nothing acute. CT flank showed a 5 mm stone at the left UVJ with moderate hydronephrosis. Patient had a hydro-ureter. Patient had cholelithiasis without evidence of cholecystitis.] Emergency Department Course and Treatment: [] Treatment Plan: [Plan will be to discuss case with hospitalist to admit patient for pain control] Disposition: [Admit] Impression: [Kidney stone with colic Intractable pain] This note was generated with [employer] dictation software. It may contain incorrect words, spelling, and punctuation that were not noted in review of the chart prior to signing ED Disposition - Plan for ED Patient: Chief Complaint: Flank Pain Referrals: Celia,Damir, DO [Primary Care Provider] -
--- NOTE | 2018-03-02 23:57 | HP.PCM_ITS ---
Problem List (1) Nephrolithiasis Status: Acute (2) YUE (acute kidney injury) Status: Acute (3) CHF (congestive heart failure) Status: Chronic Qualifiers: Heart failure type: unspecified Heart failure chronicity: chronic Qualified Code(s): I50.9 - Heart failure, unspecified (4) HTN (hypertension) Status: Chronic Qualifiers: Hypertension type: essential hypertension Qualified Code(s): I10 - Essential (primary) hypertension (5) HLD (hyperlipidemia) Status: Chronic Qualifiers: Hyperlipidemia type: pure hypercholesterolemia Qualified Code(s): E78.00 - Pure hypercholesterolemia, unspecified; E78.0 - Pure hypercholesterolemia (6) Obesity (BMI 30.0-34.9) Status: Chronic (7) Anxiety and depression Status: Chronic History of Present Illness Date of Admission: 03/02/18 Chief Complaint: L flank pain, ongoing The patient is a 77 y/o M w/ PMHx: CHF Unclear type, HTN, HLD, Obesity, Anxiety and Depression who presents to the [facility] ED on 03/02/18 with history of ongoing L sided flank pain, dysuria which started initially approximately 2 weeks prior with eventual ED evaluation initially on 02/26/18 with diagnosis at that time of a 4.7 mm left kidney stone with despite discharge oral pain regimen ongoing discomfort prompting ED return. In the ED upon evaluation patient had been noted to be mildly hypoxic but this was following notable morphine regimen and denied any recent cough, congestion, orthopnea, worsened lower extremity edema. He does note that he has been markedly constipated for the last several days secondary to recent narcotic therapies. In the ED workup included T 98.3, heart rate 68, heart rate 16, 91% on room air following EMS administration morphine 10 mg IV x 1, CBC with WBC 7.1, heme globin 13.1, platelet 239 with mild shift, BMP with BUN/Cr 17/1.35, decreased from prior 1.43, baseline Cr noted 0.8, trop < 0.015, EKG with SR w/ occasional PVC, BNP 479.1, chest x-ray with no acute cardio primary process, CT A/P w/ 5 mm left ureteral stone at the UVJ, with moderate proximal hydroureteronephrosis, cholelithiasis w/ no evidence of acute cholecystitis, diverticulosis, 5 mm pleural-based nodule in the right lung base, likely fibrotic. In the ED patient administered normal saline. Past Medical History Past Medical History (Chronic Problems): Chronic Problems CHF (congestive heart failure) (Chronic) HTN (hypertension) (Chronic) HLD (hyperlipidemia) (Chronic) Obesity (BMI 30.0-34.9) (Chronic) Anxiety and depression (Chronic) Allergies No Known Allergies Allergy (Verified 03/02/18 22:28) Home Medications: Ambulatory Orders Medication Instructions Recorded Atorvastatin Calcium [Lipitor] 40 mg PO QHS 01/21/18 Levofloxacin [Levaquin] 750 mg PO DAILY #5 tab 01/21/18 Nebivolol HCl [Bystolic] 10 mg PO DAILY 01/21/18 Telmisartan/Hydrochlorothiazid 1 tab PO DAILY 01/21/18 [Micardis Hct 40-12.5 MG Tablet] Venlafaxine XR [Effexor Xr] 150 mg PO DAILY 01/21/18 Ondansetron [Zofran Odt] 4 mg PO Q8H PRN PRN #10 tab 02/26/18 Tamsulosin HCl [Flomax] 0.4 mg PO DAILY #7 cap 02/26/18 Surgical History: - - Appendectomy. Psychiatric History: Anxiety, Depression Lives: Spouse/ Significant Other Smoking Status: Never smoker Tobacco Use: Non-smoker Alcohol: None Drugs: None - *Family History Maternal History Items: - - Patient denies any marked maternal or paternal family history including heart disease, diabetes, cancer. Paternal History Items: - - Patient denies any marked maternal or paternal family history including heart disease, diabetes, cancer. Review of Systems Constitutional: Reports: Anorexia, Fever, Malaise, Weakness, Fatigue. Denies: Chills, Weight Change HEENT: Denies: Head Aches, Sinus Congestion, Sinus Drainage Cardiovascular: Denies: Chest Pain, Palpitations Respiratory: Denies: Cough, Shortness of Breath, Shortness of breath at rest, Shortness of breath upon exertion, Sputum production Gastrointestinal: Reports: Abdominal Pain, Constipation, Nausea. Denies: Vomiting Genitourinary: Reports: Dysuria Musculoskeletal: Denies: Joint Pain, Joint Tenderness Skin: Denies: Rash, Wounds Neurological: Denies: Numbness, Tingling, Focal weakness Psychiatric: Reports: Anxiety, Depression. Denies: Homicidal Ideations, Suicidal Ideations Hematologic/ Lymphatic: Denies: Easy Bruising, Easy Bleeding VTE Information - Inpt Only VTE Present on Admission: No VTE Mechan Device Prophylaxis: SCD's VTE Pharm Prophylaxis ordered?: Yes Patient Problems: Active and Suspected Problems Nephrolithiasis (Acute) YUE (acute kidney injury) (Acute) Subjective: Seated upright in the ED, fatigued appearance, no acute distress. Objective: Physical Examination: General: awake, alert, oriented x 3 and cooperative, seated upright in the ED bed in no apparent distress. Skin: normal color, turgor, no icterus, cyanosis. HEENT: AT/NC, EOMI, PERRLA, dry MM, no carotid bruits or JVD noted. Lungs: Diminished BS BL, > bases, poor effort, no rales, ronchi or wheezing. Heart: Regular rate and rhythm; no gallop, rub audible. Abdomen: soft, mildly distended, hypoactive BS, NTTP, no HSM; however, mild distention makes examination difficult, L flank pain w/ palpation. Extremities: no cyanosis, clubbing, or edema. Neurological: patient awake, alert, oriented x 3; cognitive function intact; pupils equally reactive to light and accomodation; cranial nerves II-XII grossly normal, moving all 4 extremities, no focal deficits, strength severely globally decreased secondary to acute presentation. Psychiatric: affect appears fatiged, flat, no acute evidence of depressive or anxiety feelings. - Physical Exam Vital Signs Temp Pulse Resp Pulse Ox 98.3 F 68 16 91 03/02/18 22:28 03/02/18 22:28 03/02/18 22:28 03/02/18 22:28 Oxygen Delivery Method Room Air Weight: 207 lb 3.752 oz Body Mass Index (BMI) 32.4 Finger Stick Blood Glucose 99 Laboratory Tests Past 24 Hrs 03/02/18 03/02/18 03/02/18 23:15 23:15 23:15 WBC 7.1 RBC 3.97 L Hgb 13.1 Hct 39.4 L MCV 99.2 H MCH 33.0 H MCHC 33.2 RDW 13.4 RDW Differential 48.7 H Plt Count 239 MPV 8.9 Immature Gran % (Auto) 0.300 Neut % (Auto) 77.0 H Lymph % (Auto) 12.7 L [place] % (Auto) 9.3 Eos % (Auto) 0.6 Baso % (Auto) 0.1 Absolute Neuts (auto) 5.5 Absolute Lymphs (auto) 0.90 Total Counted Not Reportable Sodium 136 Potassium 4.1 Chloride 104 Carbon Dioxide 22.0 Anion Gap 10 BUN 17 Creatinine 1.35 H Estim Creat Clear Calc 44.20 Est GFR (MDRD) Af Amer 66 Est GFR (MDRD) Non-Af 55 L BUN/Creatinine Ratio 12.6 Glucose 117 H Calcium 8.5 Troponin I < 0.015 B-Natriuretic Peptide Pending Assessment/Plan All Active Problems Nephrolithiasis (Acute) YUE (acute kidney injury) (Acute) The patient is a 77 y/o M w/ PMHx: CHF Unclear type, HTN, HLD, Obesity, Anxiety and Depression who presents to the [facility] ED on 03/02/18 with history of ongoing L sided flank pain, dysuria which started initially approximately 2 weeks prior with eventual ED evaluation initially on 02/26/18 with diagnosis at that time of a 4.7 mm left kidney stone with despite discharge oral pain regimen ongoing discomfort prompting ED return. (1) Acute Flank Pain, secondary to Acute Nephrolithiasis w/ moderate proximal hydroureteronephrosis: CBC w/ WBC 7.1 with mild shift, UA requested but yet to be obtained, concurrent mild YUE improved from recent ED evaluation, CT A/P w/ 5 mm left ureteral stone at the UVJ, with moderate proximal hydroureteronephrosis. Will admit to [facility], maintain on gentle hydration given CHF history, defer abx pending UA given current appearance, maintain NPO for possible intervention, PRN IV/oral pain regimen, PRN anti-emetics, monitor I&Os. Given size of calculus may possibly pass, however, ongoing notable symptoms thus will request Urology consultation. (2) Acute kidney injury: Secondary to recent UTI, regimen. Admission BUN/Cr [], prior baseline creatinine noted to be 0.8, improving from recent ED evaluation as had been 1.35 prior. Will hydrate, hold nephrotoxic medications and repeat chemistry in AM. (3) Anxiety and Depression: Continue home effexor regimen. (4) CHF, Chronic, Unclear Type: BNP 479.1, does not appear markedly volume overloaded. CXR without acute process, no ECHO noted in [facility], holding asa for possible OR, holding ARB, HCTZ for mild YUE, continue BB, continue statin. Gently hydrating given mild YUE with acute presentation #1 as noted, closely monitor. (5) Incidental RLL Nodule: CT A/P w/ incidental 5 mm pleural-based nodule in the right lung base, likely fibrotic, will need outpatient continued follow-up. (6) Hypertension: Given mild YUE hold ARB, HCTZ, continue BB, PRN hydralazine. (7) Hyperlipidemia: Continue home statin regimen. (8) Obesity: Weight loss and lifestyle changes encouraged. (9) BPH: Continue home flomax regimen. (10) Constipation: Likely associated w/ narcotics, possibly contributing to poor respiratory effort in addition to pain, initiate bowel regimen. (11) DVT Prophylaxis: SCDs, heparin. Code Visit Inpatient E&M: 43983 Init Hosp L3
[2018-03-03] VITALS (18 sets, daily range): BP systolic 109–200; BP diastolic 64–89; PULSE 53–74; RESP 16–20; TEMP 36.6–36.9; O2SAT 86–98; BMI 30.4
[2018-03-03] LABS: BNP,B-Type NATRIURETIC PEPTIDE 479.1 pg/mL (0-100)
[2018-03-03 01:12] LABS: Magnesium 2.3 mg/dL (1.6-2.6)
[2018-03-03] MEDS: 0.9% NaCl Peripheral Flush Adult/Peds IV (01:36)
[2018-03-03] MEDS: Morphine 2 MG/ML Syringe IV ×2 (01:36→08:30)
[2018-03-03] MEDS: 0.9% Normal Saline 1,000 ML 75 ML IV ×3 (01:37→19:53)
[2018-03-03 05:57] LABS: Anion Gap 10 (5-15); BUN 16 mg/dL (7-18); BUN/Creat Ratio 12.9 RATIO (10-20); Calcium,Total 8.8 mg/dL (8.5-10.1); Chloride 105 mmol/L (98-107); Creatinine, Serum 1.24 mg/dL (0.70-1.30); EST Glomerular Filtration Rate 60 mL/min (>60); Est Glom Filt Rate - Afr Amer 73 mL/min (>60); Estimated Creatinine Clearance 48.12 ml/min; Glucose 103 mg/dL (74-106); Potassium 4.1 mmol/L (3.5-5.1); Sodium Level 138 mmol/L (136-145)
[2018-03-03 06:21] LABS: Absolute Lymphocyte Count 0.88 X10^3/ul (0.83-4.51); Absolute Neutrophil Count 3.9 X10^3/uL (2.0-7.7); Basophil# 0.01 X10^3/uL; Basophil% 0.2 % (0-1); Eosinophil# 0.05 X10^3/uL; Eosinophils% 0.9 % (0-5); Hematocrit 39.2 % (40-54); Hemoglobin 13.3 g/dl (13.0-16.5); Lymphocyte # 0.88 X10^3/ul (4.0); Lymphocyte % 16.1 % (19-41); Mean Corp Hgb Conc 33.9 g/gl (32-36); Mean Corpuscular Hgb 33.7 pg (27.0-32.0); Mean Corpuscular Volume 99.2 fL (80-94); Monocyte# 0.64 X10^3/uL; Monocyte% 11.7 % (0-10); Neutrophil # 3.87 X10^3/uL (2.7-7.7); Neutrophil % 70.9 % (47-70); Platelet Count 257 K/mm3 (150-450); RBC Distribution Width CV 13.2 % (11.6-14.6); RBC Distribution Width SD 47.2 fl (35.1-43.9); Red Blood Count 3.95 M/mm3 (4.6-6.2); White Blood Count 5.5 K/mm3 (4.4-11.0)
[2018-03-03 06:41] LABS: POSITIVE COUNT NO; POSITIVE DIFFERENTIAL NO; POSITIVE MORPHOLOGY NO
--- NOTE | 2018-03-03 07:41 | PCM.CONS.U ---
Problem List (1) Nephrolithiasis Status: Acute (2) YUE (acute kidney injury) Status: Acute Reason for Consult Date of Consultation: 03/03/18 Reason for Consultation: ureteral calculi History of Present Illness: The patient is a 77 year old male with 7mm left ureteral calculi with obstruction. admitted for pain control plan to take to surgery today for laser lithotripsy. Past Medical History Past Medical History (Chronic Problems): Chronic Problems CHF (congestive heart failure) (Chronic) HTN (hypertension) (Chronic) HLD (hyperlipidemia) (Chronic) Obesity (BMI 30.0-34.9) (Chronic) Anxiety and depression (Chronic) Allergies No Known Allergies Allergy (Verified 03/02/18 22:28) Home Medications: Ambulatory Orders Medication Instructions Recorded Atorvastatin Calcium [Lipitor] 40 mg PO QHS 01/21/18 Nebivolol HCl [Bystolic] 10 mg PO DAILY 01/21/18 Telmisartan/Hydrochlorothiazid 1 tab PO DAILY 01/21/18 [Micardis Hct 40-12.5 MG Tablet] Venlafaxine XR [Effexor Xr] 150 mg PO DAILY 01/21/18 Ondansetron [Zofran Odt] 4 mg PO Q8H PRN PRN #10 tab 02/26/18 Tamsulosin HCl [Flomax] 0.4 mg PO DAILY #7 cap 02/26/18 Oxycodone HCl/Acetaminophen 1 tab PO Q6H PRN PRN 03/03/18 [Percocet 5-325 mg Tablet] Surgical History: noncontributory, - - Appendectomy. Psychiatric History: Anxiety, Depression Lives: Spouse/ Significant Other Smoking Status: Never smoker Tobacco Use: Non-smoker Alcohol: None Drugs: None - *Family History Maternal History Items: - - Patient denies any marked maternal or paternal family history including heart disease, diabetes, cancer. Paternal History Items: - - Patient denies any marked maternal or paternal family history including heart disease, diabetes, cancer. Review of Systems Constitutional: Denies: Chills, Fever, Weight Change HEENT: Denies: Head Aches, Sinus Congestion, Sinus Drainage Cardiovascular: Denies: Chest Pain, Palpitations Respiratory: Denies: Cough, Shortness of breath at rest, Sputum production Gastrointestinal: Reports: Abdominal Pain. Denies: Nausea, Vomiting Genitourinary: Reports: Hematuria. Denies: Dysuria Musculoskeletal: Denies: Joint Pain, Joint Tenderness Skin: Denies: Rash, Wounds Neurological: Denies: Numbness, Tingling, Focal weakness Psychiatric: Denies: Anxiety, Depression, Homicidal Ideations, Suicidal Ideations Hematologic/ Lymphatic: Denies: Easy Bruising, Easy Bleeding Physical Exam - Physical Exam Vital Signs Temp 98.0 F 03/03/18 01:21 Pulse 57 L 03/03/18 03:11 Resp 20 H 03/03/18 01:21 BP 156/87 H 03/03/18 02:02 Pulse Ox 92 03/03/18 01:21 Intake & Output 03/01/18 03/02/18 03/03/18 23:59 23:59 23:59 Intake Total 272 / 272 Output Total 0 / 0 Balance 272 / 272 Weight: 94 kg 88.1 kg Intake: IV fluid/meds 272 / 272 Output: Urine 0 / 0 General: Alert, Oriented x3 HEENT: Atraumatic Oral: Moist Mucosa Neck: Supple Lungs: Normal air movement Cardiovascular: Regular rate, Regular Rhythm Abdomen: Soft, Obese Laboratory Tests Past 24 Hrs 03/02/18 03/02/18 03/02/18 23:15 23:15 23:15 WBC 7.1 RBC 3.97 L Hgb 13.1 Hct 39.4 L MCV 99.2 H MCH 33.0 H MCHC 33.2 RDW 13.4 RDW Differential 48.7 H Plt Count 239 MPV 8.9 Immature Gran % (Auto) 0.300 Neut % (Auto) 77.0 H Lymph % (Auto) 12.7 L [place] % (Auto) 9.3 Eos % (Auto) 0.6 Baso % (Auto) 0.1 Absolute Neuts (auto) 5.5 Absolute Lymphs (auto) 0.90 Total Counted Not Reportable Sodium 136 Potassium 4.1 Chloride 104 Carbon Dioxide 22.0 Anion Gap 10 BUN 17 Creatinine 1.35 H Estim Creat Clear Calc 44.20 Est GFR (MDRD) Af Amer 66 Est GFR (MDRD) Non-Af 55 L BUN/Creatinine Ratio 12.6 Glucose 117 H Calcium 8.5 Magnesium Troponin I < 0.015 B-Natriuretic Peptide 479.1 H 03/02/18 03/03/18 03/03/18 23:15 05:06 05:06 WBC 5.5 RBC 3.95 L Hgb 13.3 Hct 39.2 L MCV 99.2 H MCH 33.7 H MCHC 33.9 RDW 13.2 RDW Differential 47.2 H Plt Count 257 MPV 9.0 Immature Gran % (Auto) 0.200 Neut % (Auto) 70.9 H Lymph % (Auto) 16.1 L [place] % (Auto) 11.7 H Eos % (Auto) 0.9 Baso % (Auto) 0.2 Absolute Neuts (auto) 3.9 Absolute Lymphs (auto) 0.88 Total Counted Not Reportable Sodium 138 Potassium 4.1 Chloride 105 Carbon Dioxide 23.0 Anion Gap 10 BUN 16 Creatinine 1.24 Estim Creat Clear Calc 48.12 Est GFR (MDRD) Af Amer 73 Est GFR (MDRD) Non-Af 60 BUN/Creatinine Ratio 12.9 Glucose 103 Calcium 8.8 Magnesium 2.3 Troponin I B-Natriuretic Peptide Assessment/Plan All Active Problems Nephrolithiasis (Acute) YUE (acute kidney injury) (Acute) npo consent for Surgery today ureteroscopy laser possible stent.
[2018-03-03] MEDS: Venlafaxine XR 150 MG Capsule PO (08:23)
[2018-03-03] MEDS: Tamsulosin HCl 0.4 MG Capsule PO (08:23)
[2018-03-03] MEDS: Nebivolol HCl 10 MG Tablet PO (08:24)
[2018-03-03] MEDS: Ondansetron 4 MG/2 ML Vial IV (08:30)
[2018-03-03] MEDS: hydrALAZINE 20 MG/ML Vial 10 MG IV (08:30)
--- NOTE | 2018-03-03 09:23 | PCM.PN.HOSP ---
Patient Problems: Active and Suspected Problems Nephrolithiasis (Acute) YUE (acute kidney injury) (Acute) Subjective: Doing well, pain is well controlled. Vitals/I&O's: Vital Signs Temp Pulse Resp BP Pulse Ox 98.5 F 53 L 18 200/79 H 98 03/03/18 08:20 03/03/18 08:30 03/03/18 08:20 03/03/18 08:20 03/03/18 08:20 Oxygen Delivery Method Room Air Weight: 194 lb 3.636 oz Body Mass Index (BMI) 30.4 Finger Stick Blood Glucose 99 Intake and Output for Last 24 Hours 03/01/18 03/02/18 03/03/18 23:59 23:59 23:59 Intake Total 272 / 272 Output Total 0 / 0 Balance 272 / 272 General: Alert, Oriented x3, Cooperative, No apparent distress HEENT: Atraumatic, EOMI, Normocephalic Oral: Moist Mucosa Neck: Supple, No JVD Lungs: Clear to auscultation, Normal air movement, No rhonchi, No wheeze, No rales Cardiovascular: Regular rate, Regular Rhythm, Normal S1, Normal S2, No murmurs Abdomen: Soft, Non Tender, Non-Distended, No Hepato-splenomegaly Extremities: No edema, Capillary Refill Less than 3 Seconds Skin: No rashes, No breakdown Neurological: Neuro grossly intact, Sensory exam intact to light touch and pain Psych/Mental Status: Normal Affect, Appropriate Laboratory Results 03/02/18 23:15: WBC 7.1, RBC 3.97 L, Hgb 13.1, Hct 39.4 L, MCV 99.2 H, MCH 33.0 H, MCHC 33.2, RDW 13.4, RDW Differential 48.7 H, Plt Count 239, MPV 8.9, Immature Gran % (Auto) 0.300, Neut % (Auto) 77.0 H, Lymph % (Auto) 12.7 L, [place] % (Auto) 9.3, Eos % (Auto) 0.6, Baso % (Auto) 0.1, Absolute Neuts (auto) 5.5, Absolute Lymphs (auto) 0.90, Total Counted Not Reportable 03/02/18 23:15: Sodium 136, Potassium 4.1, Chloride 104, Carbon Dioxide 22.0, Anion Gap 10, BUN 17, Creatinine 1.35 H, Estim Creat Clear Calc 44.20, Est GFR (MDRD) Af Amer 66, Est GFR (MDRD) Non-Af 55 L, BUN/Creatinine Ratio 12.6, Glucose 117 H, Calcium 8.5, Troponin I < 0.015 03/02/18 23:15: B-Natriuretic Peptide 479.1 H 03/02/18 23:15: Magnesium 2.3 03/03/18 05:06: WBC 5.5, RBC 3.95 L, Hgb 13.3, Hct 39.2 L, MCV 99.2 H, MCH 33.7 H, MCHC 33.9, RDW 13.2, RDW Differential 47.2 H, Plt Count 257, MPV 9.0, Immature Gran % (Auto) 0.200, Neut % (Auto) 70.9 H, Lymph % (Auto) 16.1 L, [place] % (Auto) 11.7 H, Eos % (Auto) 0.9, Baso % (Auto) 0.2, Absolute Neuts (auto) 3.9, Absolute Lymphs (auto) 0.88, Total Counted Not Reportable 03/03/18 05:06: Sodium 138, Potassium 4.1, Chloride 105, Carbon Dioxide 23.0, Anion Gap 10, BUN 16, Creatinine 1.24, Estim Creat Clear Calc 48.12, Est GFR (MDRD) Af Amer 73, Est GFR (MDRD) Non-Af 60, BUN/Creatinine Ratio 12.9, Glucose 103, Calcium 8.8 Current Medications Acetaminophen (Tylenol) 650 mg PO Q6H PRN PRN PRN Reason: Non-cardiac pain (mod-severe) Hydrocodone Bitart/Acetaminophen ([place] 5mg-325mg) 1 - 2 tablet PO Q6H PRN PRN PRN Reason: Moderate-severe pain Al Hydroxide/Mg Hydroxide (Mylanta Ii) 30 ml PO Q6H PRN PRN PRN Reason: Gastric burning Atorvastatin Calcium (Lipitor) [address] [facility] Heparin Sodium (Porcine) (Heparin Na) 5,[address] [facility] Last Admin: 03/03/18 08:22 Dose: Not Given Hydralazine HCl (Apresoline Iv) 10 mg IV Q4H PRN PRN PRN Reason: SBP > 160 Last Admin: 03/03/18 08:30 Dose: 10 mg Sodium Chloride () 1,000 mls @ 75 mls/hr IV .[id number] [facility] Last Admin: 03/03/18 01:37 Dose: 75 mls/hr Magnesium Hydroxide (Milk Of Magnesia) 30 ml PO DAILY PRN PRN PRN Reason: Constipation Morphine Sulfate () 1 - 2 mg IV Q4H PRN PRN PRN Reason: PAIN Last Admin: 03/03/18 08:30 Dose: 2 mg Nebivolol (Bystolic) [address] [facility] Last Admin: 03/03/18 08:24 Dose: 10 mg Nutritional Formula (Lactose Free) (Ensure Enlive) 120 ml PO 4X/DAY [facility] Last Admin: 03/03/18 08:22 Dose: Not Given Ondansetron HCl (Zofran) 4 mg IV Q8H PRN PRN PRN Reason: NAUSEA Last Admin: 03/03/18 08:30 Dose: 4 mg Polyethylene Glycol (Miralax) [address] [facility] Last Admin: 03/03/18 08:23 Dose: Not Given Sodium Chloride () 5 - 15 ml IV UD PRN PRN Reason: SALINE FLUSH Last Admin: 03/03/18 01:36 Dose: 10 ml Tamsulosin HCl (Flomax) 0.[address] [facility] Last Admin: 03/03/18 08:23 Dose: 0.4 mg Venlafaxine HCl (Effexor Xr) [address] [facility] Last Admin: 03/03/18 08:23 Dose: 150 mg Medical Necessity - Tobacco Use Smoking Status: Never smoker Tobacco Use: Non-smoker Assessment/Plan All Active Problems Nephrolithiasis (Acute) YUE (acute kidney injury) (Acute) 1. Left nephrolithiasis with moderate proximal hydroureteronephrosis/acute kidney injury -Consult to urology for possible intervention with stent -Gentle IV hydration for AK I, admit creatinine 1.35, today is resolved and is 1.24 -N.p.o. 2. Hypertension/hyperlipidemia/chronic CHF of unclear type -Gentle IV hydration given history of CHF -Will hold ARB, HCTZ for his mild YUE -can resume home medications after procedure -Continue with statin 3. Incidental right lower lobe nodule -Found on CT he abdomen pelvis with incidental 5 mm pleural-based nodule in the right lung base -He will need outpatient follow-up in [address] scan 4. Anxiety/depression -Stable -Continue with Effexor 5. BPH -Stable -Continue with Flomax DVT: Heparin Code Visit Inpatient E&M: 98837 Subs Hosp L2
--- NOTE | 2018-03-03 09:30 | PN_ITS ---
Patient Problems: Active and Suspected Problems Nephrolithiasis (Acute) YUE (acute kidney injury) (Acute) Subjective: Doing well, pain is well controlled. Vitals/I&O's: Vital Signs Temp Pulse Resp BP Pulse Ox 98.5 F 53 L 18 200/79 H 98 03/03/18 08:20 03/03/18 08:30 03/03/18 08:20 03/03/18 08:20 03/03/18 08:20 Oxygen Delivery Method Room Air Weight: 194 lb 3.636 oz Body Mass Index (BMI) 30.4 Finger Stick Blood Glucose 99 Intake and Output for Last 24 Hours 03/01/18 03/02/18 03/03/18 23:59 23:59 23:59 Intake Total 272 / 272 Output Total 0 / 0 Balance 272 / 272 General: Alert, Oriented x3, Cooperative, No apparent distress HEENT: Atraumatic, EOMI, Normocephalic Oral: Moist Mucosa Neck: Supple, No JVD Lungs: Clear to auscultation, Normal air movement, No rhonchi, No wheeze, No rales Cardiovascular: Regular rate, Regular Rhythm, Normal S1, Normal S2, No murmurs Abdomen: Soft, Non Tender, Non-Distended, No Hepato-splenomegaly Extremities: No edema, Capillary Refill Less than 3 Seconds Skin: No rashes, No breakdown Neurological: Neuro grossly intact, Sensory exam intact to light touch and pain Psych/Mental Status: Normal Affect, Appropriate Laboratory Results 03/02/18 23:15: WBC 7.1, RBC 3.97 L, Hgb 13.1, Hct 39.4 L, MCV 99.2 H, MCH 33.0 H, MCHC 33.2, RDW 13.4, RDW Differential 48.7 H, Plt Count 239, MPV 8.9, Immature Gran % (Auto) 0.300, Neut % (Auto) 77.0 H, Lymph % (Auto) 12.7 L, [place] % (Auto) 9.3, Eos % (Auto) 0.6, Baso % (Auto) 0.1, Absolute Neuts (auto) 5.5, Absolute Lymphs (auto) 0.90, Total Counted Not Reportable 03/02/18 23:15: Sodium 136, Potassium 4.1, Chloride 104, Carbon Dioxide 22.0, Anion Gap 10, BUN 17, Creatinine 1.35 H, Estim Creat Clear Calc 44.20, Est GFR (MDRD) Af Amer 66, Est GFR (MDRD) Non-Af 55 L, BUN/Creatinine Ratio 12.6, Glucose 117 H, Calcium 8.5, Troponin I < 0.015 03/02/18 23:15: B-Natriuretic Peptide 479.1 H 03/02/18 23:15: Magnesium 2.3 03/03/18 05:06: WBC 5.5, RBC 3.95 L, Hgb 13.3, Hct 39.2 L, MCV 99.2 H, MCH 33.7 H, MCHC 33.9, RDW 13.2, RDW Differential 47.2 H, Plt Count 257, MPV 9.0, Immature Gran % (Auto) 0.200, Neut % (Auto) 70.9 H, Lymph % (Auto) 16.1 L, [place] % (Auto) 11.7 H, Eos % (Auto) 0.9, Baso % (Auto) 0.2, Absolute Neuts (auto) 3.9, Absolute Lymphs (auto) 0.88, Total Counted Not Reportable 03/03/18 05:06: Sodium 138, Potassium 4.1, Chloride 105, Carbon Dioxide 23.0, Anion Gap 10, BUN 16, Creatinine 1.24, Estim Creat Clear Calc 48.12, Est GFR (MDRD) Af Amer 73, Est GFR (MDRD) Non-Af 60, BUN/Creatinine Ratio 12.9, Glucose 103, Calcium 8.8 Current Medications Acetaminophen (Tylenol) 650 mg PO Q6H PRN PRN PRN Reason: Non-cardiac pain (mod-severe) Hydrocodone Bitart/Acetaminophen ([place] 5mg-325mg) 1 - 2 tablet PO Q6H PRN PRN PRN Reason: Moderate-severe pain Al Hydroxide/Mg Hydroxide (Mylanta Ii) 30 ml PO Q6H PRN PRN PRN Reason: Gastric burning Atorvastatin Calcium (Lipitor) 40 mg PO QHS [facility] Heparin Sodium (Porcine) (Heparin Na) 5,000 unit SC Q12 [facility] Last Admin: 03/03/18 08:22 Dose: Not Given Hydralazine HCl (Apresoline Iv) 10 mg IV Q4H PRN PRN PRN Reason: SBP > 160 Last Admin: 03/03/18 08:30 Dose: 10 mg Sodium Chloride () 1,000 mls @ 75 mls/hr IV .[id number] [facility] Last Admin: 03/03/18 01:37 Dose: 75 mls/hr Magnesium Hydroxide (Milk Of Magnesia) 30 ml PO DAILY PRN PRN PRN Reason: Constipation Morphine Sulfate () 1 - 2 mg IV Q4H PRN PRN PRN Reason: PAIN Last Admin: 03/03/18 08:30 Dose: 2 mg Nebivolol (Bystolic) 10 mg PO DAILY [facility] Last Admin: 03/03/18 08:24 Dose: 10 mg Nutritional Formula (Lactose Free) (Ensure Enlive) 120 ml PO 4X/DAY [facility] Last Admin: 03/03/18 08:22 Dose: Not Given Ondansetron HCl (Zofran) 4 mg IV Q8H PRN PRN PRN Reason: NAUSEA Last Admin: 03/03/18 08:30 Dose: 4 mg Polyethylene Glycol (Miralax) 17 gm PO DAILY [facility] Last Admin: 03/03/18 08:23 Dose: Not Given Sodium Chloride () 5 - 15 ml IV UD PRN PRN Reason: SALINE FLUSH Last Admin: 03/03/18 01:36 Dose: 10 ml Tamsulosin HCl (Flomax) 0.4 mg PO DAILY [facility] Last Admin: 03/03/18 08:23 Dose: 0.4 mg Venlafaxine HCl (Effexor Xr) 150 mg PO DAILY [facility] Last Admin: 03/03/18 08:23 Dose: 150 mg Medical Necessity - Tobacco Use Smoking Status: Never smoker Tobacco Use: Non-smoker Assessment/Plan All Active Problems Nephrolithiasis (Acute) YUE (acute kidney injury) (Acute) 1. Left nephrolithiasis with moderate proximal hydroureteronephrosis/acute kidney injury -Consult to urology for possible intervention with stent -Gentle IV hydration for AK I, admit creatinine 1.35, today is resolved and is 1.24 -N.p.o. 2. Hypertension/hyperlipidemia/chronic CHF of unclear type -Gentle IV hydration given history of CHF -Will hold ARB, HCTZ for his mild YUE -can resume home medications after procedure -Continue with statin 3. Incidental right lower lobe nodule -Found on CT he abdomen pelvis with incidental 5 mm pleural-based nodule in the right lung base -He will need outpatient follow-up in [address] scan 4. Anxiety/depression -Stable -Continue with Effexor 5. BPH -Stable -Continue with Flomax DVT: Heparin Code Visit Inpatient E&M: 29300 Subs Hosp L2
--- NOTE | 2018-03-03 11:25 | CASEMGMT ---
RN YUSRA Face to Face with patient for initial transition planning/care coordination assessment. RN YUSRA introduced self and role at [facility]. Patient lying in bed, alert and oriented. Patient willing to participate in assessment and is able to answer all questions appropriately. Care providers, pharmacy, and demographics verified. Patient wishes to discharge home, denies need for home health at this time. Patient states he has no further needs or concerns at this time. CM to follow for discharge planning needs that may arise. PCP: Celia Specialists:None [facility] Insurance: [employer] Prescription Benefit: None Living Will/HPOA: None LNOK: Sons Living Arrangements: Patient lives with son in 2 story home with bed and bath on first floor. Transportation: Has services delivery driver DME/HHC: Has cane and walker. Disposition Plan: Patient to discharge home with family support and follow-up plans in place. Alicia SCHILLING, RN, CM
[2018-03-03 11:30] LABS: Bacteria 0 SEEN /hpf (None Seen); Mucous, Urine 0 SEEN /hpf (<or=2+); Squamous Epithelial Cells - UA 0 SEEN /hpf (0-5); White Blood Cells 0 SEEN /hpf (0-5)
[2018-03-03 11:34] LABS: Color, Urine Yellow (Yellow); Glucose, Dipstick Normal (Normal); Ketone-Dipstick 50 mg/dl (Negative); Leukocyte Esterase-Dipstick Negative /ul (Negative); Nitrite-Dipstick Negative (Negative); Occult Blood-Urine 50 /ul (Negative); Protein-Dipstick 30 mg/dl (Negative); Urine Bilirubin Dipstick Negative (Negative); Urine Clarity Clear (Clear); Urine Urobilinogen Normal (Normal); Urine pH 6.5 (5.0 - 8.0)
[2018-03-03 11:42] LABS: Red Blood Cells-Urine 0-5 SEEN /hpf (0-5)
[2018-03-03] MEDS: Cefazolin 1 GM/50 ML BAG IV (13:28)
--- NOTE | 2018-03-03 13:48 | OP.PCM_ITS ---
Problem List (1) Nephrolithiasis Status: Acute (2) YUE (acute kidney injury) Status: Acute Report of Operation Date of Procedure: 03/03/18 Pre-Operative Diagnosis: Left ureteral calculi with obstruction Post-Operative Diagnosis: Same Surgery/Procedure Performed:: Cystoscopy, balloon dilation of the left ureter, left ureteroscopy laser lithotripsy of stone. No stent Description of Surgical Findings:: 77-year-old male taken back to the operating room at the smooth induction of general anesthesia he was placed and placed supine on the table and then a dorsolithotomy position penis and testicles were prepped and draped in usual sterile fashion went into the bladder with a 21 Romanian rigid cystourethroscope once I got inside the bladder he had a very large bladder and a large prostate heavily trabeculated identified the left ureteral orifice there was a stone emanating from the ureteral orifice I used a balloon dilator and the wire advanc ed a wire up the left ureter and over the wire advanced the balloon dilator balloon dilated the distal left ureter and then left the wire in place next the wire went in with a SlimLine rigid ureteroscope was able to get in the ureter quite easily and then I lasered the stone with a 270 ?m laser fiber the stone laser little tiny pieces and all pieces passed I then pulled out the ureter drained the bladder patient anesthetic was reversed no stent was placed he will follow-up with me in a few weeks for checkup. Type of Anesthesia:: General Drains: none - Admit VTE Documentation VTE Present on Admission: No VTE Mechan Device Prophylaxis: SCD's
[2018-03-03] MEDS: Atorvastatin Calcium 40 MG Tablet PO (21:17)
[2018-03-03] MEDS: Heparin Injection (Vial) 5,000 UNIT/ML VIAL 5000 UNIT SC (21:20)
[2018-03-04 03:48] VITALS: BP 142/85; PULSE 64; RESP 16; TEMP 36.5; O2SAT 92
[2018-03-04] MEDS: Ondansetron 4 MG/2 ML Vial IV (06:21)
[2018-03-04] MEDS: 0.9% NaCl Peripheral Flush Adult/Peds IV (06:21)
[2018-03-04] MEDS: Acetaminophen 325 MG Tablet 650 MG PO (06:24)
[2018-03-04] MEDS: 0.9% Normal Saline 1,000 ML 75 ML IV (06:32)
--- NOTE | 2018-03-04 08:31 | DCINST_ITS ---
- Discharge Diagnoses Current Active Problems: Current Active and Chronic Problems Nephrolithiasis (Acute) YUE (acute kidney injury) (Acute) CHF (congestive heart failure) (Chronic) HTN (hypertension) (Chronic) HLD (hyperlipidemia) (Chronic) Obesity (BMI 30.0-34.9) (Chronic) Anxiety and depression (Chronic) You will use the following diet at home:: Regular Your food should be the consistency of: Regular Your liquids should be the consistency of: Regular/Thin Discharge Activity: No Restrictions Call your doctor if you observe: Fever of 101 or Higher, Shortness of breath, Dizziness, Chest pain, Increased palpitations (irregular heartbeat) Allergies/Adverse Reactions: Allergies No Known Allergies Allergy (Verified 03/02/18 22:28) Medications to take at Discharge Atorvastatin Calcium [Lipitor] 40 mg PO QHS 01/21/18 Nebivolol HCl [Bystolic (Beta Wade)] 10 mg PO DAILY 01/21/18 Telmisartan/Hydrochlorothiazid [Micardis Hct 40-12.5 MG Tablet] 1 tab PO DAILY 01/21/18 Venlafaxine XR [Effexor Xr] 150 mg PO DAILY 01/21/18 Ondansetron [Zofran Odt] 4 mg PO Q8H PRN PRN #10 tab 02/26/18 Tamsulosin HCl [Flomax] 0.4 mg PO DAILY #7 cap 02/26/18 Oxycodone HCl/Acetaminophen [Percocet 5-325 mg Tablet] 1 tab PO Q6H PRN PRN 03/03/18 Primary Care Physician: Damir Yang DO [Primary Care Provider] - Please follow up with your Primary Care Physician in: 3-5 days Test Results: Test results from this visit will be discussed in further detail at your follow- up appointment, if applicable. Please Follow Up With: Mustapha Valverde MD When: 2-3 weeks
--- NOTE | 2018-03-04 08:40 | DS.PCM_ITS ---
Discharge Date and Diagnosis - Problem List Patient Problems: Active and Suspected Problems Nephrolithiasis (Acute) YUE (acute kidney injury) (Acute) Date of Admission: 03/02/18 Date of Discharge: 03/04/18 - Primary Discharge Diagnosis Active and Suspected Problems Nephrolithiasis (Acute) YUE (acute kidney injury) (Acute) - Secondary Discharge Diagnosis Chronic Problems CHF (congestive heart failure) (Chronic) HTN (hypertension) (Chronic) HLD (hyperlipidemia) (Chronic) Obesity (BMI 30.0-34.9) (Chronic) Anxiety and depression (Chronic) Hospital Course and Treatment Imaging Results: CT Abd/Pelvis: IMPRESSION: 1. A 5 mm left ureteral stone at the UVJ, with moderate proximal hydroureteronephrosis. 2. Cholelithiasis. No evidence of acute cholecystitis. 3. Diverticulosis. No diverticulitis. 4. A 5 mm pleural-based nodule in the right lung base, likely fibrotic. Operations: - - Cystoscopy: Date of Procedure: 03/03/18 Pre-Operative Diagnosis: Left ureteral calculi with obstruction Post-Operative Diagnosis: Same Surgery/Procedure Performed:: Cystoscopy, balloon dilation of the left ureter, left ureteroscopy laser lithotripsy of stone. No stent Summary of Care Provided: Per HPI: The patient is a 77 y/o M w/ PMHx: CHF Unclear type, HTN, HLD, Obesity, Anxiety and Depression who presents to the [facility] ED on 03/02/18 with history of ongoing L sided flank pain, dysuria which started initially approximately 2 weeks prior with eventual ED evaluation initially on 02/26/18 with diagnosis at that time of a 4.7 mm left kidney stone with despite discharge oral pain regimen ongoing discomfort prompting ED return. In the ED upon evaluation patient had been noted to be mildly hypoxic but this was following notable morphine regimen and denied any recent cough, congestion, orthopnea, worsened lower extremity edema. He does note that he has been markedly constipated for the last several days secondary to recent narcotic therapies. In the ED workup included T 98.3, heart rate 68, heart rate 16, 91% on room air following EMS administration morphine 10 mg IV x 1, CBC with WBC 7.1, heme globin 13.1, platelet 239 with mild shift, BMP with BUN/Cr 17/1.35, decreased from prior 1.43, baseline Cr noted 0.8, trop < 0.015, EKG with SR w/ occasional PVC, BNP 479.1, chest x-ray with no acute cardio primary process, CT A/P w/ 5 mm left ureteral stone at the UVJ, with moderate proximal hydroureteronephrosis, cholelithiasis w/ no evidence of acute cholecystitis, diverticulosis, 5 mm pleural-based nodule in the right lung base, likely fibrotic. In the ED patient administered normal saline. Hospital Course: 1. Left nephrolithiasis with moderate proximal hydroureteronephrosis/AK I - 77-year-old male who presented to the ER February 26 with flank pain and was found to have a 4.7 mm stone at that time he was given oral narcotics and sent home. He presented back to the hospital because of continued pain and admitted because of the hydroureteronephrosis seen on CT scan of his abdomen pelvis. On 03/03/2018 he underwent a cystoscopy and the stone was destroyed and no stent was placed. He is feeling much better today from a pain standpoint and should hopefully not need any of the narcotics which has caused him significant constipation. I have explained to him that he needs to ambulate and to take any bowel regimen that he needs to all at home to assist with bowel movements. Otherwise he is to follow-up with his primary care physician in 3-5 days as well as Dr. velez in 2-3 weeks. 2. Hypertension/hyperlipidemia/chronic chronic CHF of unclear type-it is uncertain the degree of heart failure if any since he is never had an echo. Since he presented for a kidney stone and not any orthopnea no investigation was done during this admission. He can continue with his blood pressure medications at discharge as his acute kidney injury has resolved. 3. Incidental right lower lobe nodule-there is a 5 mm pleural-based nodule in the right lung base that was caught on the CT abdomen pelvis. He is a non- smoker and will need follow-up of his nodule in about 12 months. 4. His other medical diagnoses were evaluated and his home medications were continued where appropriate Patient Problems: Active and Suspected Problems Nephrolithiasis (Acute) YUE (acute kidney injury) (Acute) Objective: General: Alert, Oriented x3, Cooperative, No apparent distress HEENT: Atraumatic, EOMI, Normocephalic Oral: Moist Mucosa Neck: Supple, No JVD Lungs: Clear to auscultation, Normal air movement, No rhonchi, No wheeze, No rales Cardiovascular: Regular rate, Regular Rhythm, Normal S1, Normal S2, No murmurs Abdomen: Soft, Non Tender, Non-Distended, No Hepato-splenomegaly Extremities: No edema, Capillary Refill Less than 3 Seconds Skin: No rashes, No breakdown Neurological: Neuro grossly intact, Sensory exam intact to light touch and pain Psych/Mental Status: Normal Affect, Appropriate - Physical Exam Vital Signs Temp Pulse Resp BP Pulse Ox 97.7 F L 64 16 142/85 H 92 03/04/18 03:48 03/04/18 03:48 03/04/18 03:48 03/04/18 03:48 03/04/18 03:48 Oxygen Flow Rate (L/min) 1 Oxygen Delivery Method Nasal Cannula Weight: 194 lb 14.218 oz Body Mass Index (BMI) 30.4 Finger Stick Blood Glucose 99 Intake and Output for Last 24 Hours 03/02/18 03/03/18 03/04/18 23:59 23:59 23:59 Intake Total 1918 / 1918 1381 / 1381 Output Total 450 / 450 1450 / 1450 Balance 1468 / 1468 -69 / -69 Laboratory Tests Past 24 Hrs 03/03/18 11:25 Urine Color Yellow Urine Clarity Clear Urine pH 6.5 Ur Specific [place] 1.010 Urine Protein 30 H Urine Glucose (UA) Normal Urine Ketones 50 H Urine Occult Blood 50 H Urine Nitrite Negative Urine Bilirubin Negative Urine Urobilinogen Normal Ur Leukocyte Esterase Negative Urine RBC 0-5 SEEN Urine WBC 0 SEEN Ur Squamous Epith Cells 0 SEEN Urine Bacteria 0 SEEN Urine Mucus 0 SEEN Discharge Activity: No Restrictions Call your doctor if you observe: Fever of 101 or Higher, Shortness of breath, Dizziness, Chest pain, Increased palpitations (irregular heartbeat) Home Medications: Medications to take at Discharge Atorvastatin Calcium [Lipitor] 40 mg PO QHS 01/21/18 Nebivolol HCl [Bystolic (Beta Wade)] 10 mg PO DAILY 01/21/18 Telmisartan/Hydrochlorothiazid [Micardis Hct 40-12.5 MG Tablet] 1 tab PO DAILY 01/21/18 Venlafaxine XR [Effexor Xr] 150 mg PO DAILY 01/21/18 Ondansetron [Zofran Odt] 4 mg PO Q8H PRN PRN #10 tab 01/16/19 Tamsulosin HCl [Flomax] 0.4 mg PO DAILY #7 cap 02/26/18 Oxycodone HCl/Acetaminophen [Percocet 5-325 mg Tablet] 1 tab PO Q6H PRN PRN 0 03/03/18 Primary Care Physician: Damir Yang DO [Primary Care Provider] - Please follow up with your Primary Care Physician in: 3-5 days Please Follow Up With: Mustapha Valverde MD When: 2-3 weeks Disposition: Home Minutes spent on discharge:: 35 Patient Condition:: Good Medical Necessity - Tobacco Use Smoking Status: Never smoker Tobacco Use: Non-smoker Meaningful Use Info Meaningful Use Diagnoses (Choose all that apply): None applicable Code Visit Inpatient E&M: 19182 Disch Hosp
[2018-03-04 08:41] VITALS: BP 156/88; PULSE 58; RESP 18; TEMP 37; O2SAT 92
[2018-03-04] MEDS: Tamsulosin HCl 0.4 MG Capsule PO (08:55)
[2018-03-04] MEDS: Venlafaxine XR 150 MG Capsule PO (08:55)
[2018-03-04] MEDS: Nebivolol HCl 10 MG Tablet PO (08:55)
[2018-03-04 11:19] VITALS: O2SAT 90; O2SAT 93
--- NOTE | 2018-03-07 13:45 | CASEMGMT ---
ELBERT CM Discharge Follow-Up Phone Call. LACE: 12 Strata: 4 Discharge Date: 03-04-18 Adm Dx: Nephrolithiasis. Attempted discharge follow-up phone call. No answer. Message not left at this time d/t this is a shared phone. Susie GUON RN CM
--- OUTSIDE RECORDS SUMMARY | 2018-05-05 12:33 | XMS RPT_ITS ---
:1940 Author Organization OHIP Support Name Relationship Address Phone R Unavailable Unavailable Unavailable DANIEL MOORE Unavailable [address] + [place] [address] R Unavailable Unavailable Unavailable ARLETTE MOOREON Unavailable [address] + [place] [address] R Unavailable Unavailable Unavailable ARLETTE MOOREON Unavailable [address] + [place] [address] R Unavailable Unavailable Unavailable MOOREARLETTEON Unavailable [address] + [place] [address] R Unavailable Unavailable Unavailable S Unavailable Unavailable Unavailable ARLETTE MOOREON Unavailable [address] + [place] [address] S Unavailable Unavailable Unavailable MOORE, NEISHA Unavailable [address] + [place] [address] ARLETTE MOOREON Unavailable [address] + [place] [address] S Unavailable Unavailable Unavailable MOORE, NEISHA Unavailable [address] + [place] [address] MOOREARLETTEON Unavailable [address] + [place] [address] MOORE, NEISHA Unavailable [address] + [place] [address] MOORE, NEISHA Unavailable [address] + [place] [address] Care Team Providers Name Role Phone DAMIR [...] 02/26/2018 Unknown N20.0 - CalcRamiro Yoon [facility] N20.0(ICD-10) Hospital Repository PROCEDURES PROCEDURES No Procedure Records FoundRESULTS RESULTS 12 LEAD ELECTROCARDIOGRAM Observed: 03/04/2018 Status: F Source: [place] 1:08 PM [facility] REPOSITORY [facility] Cardiovascular Services [address] [place] [address] 12 Lead EKG 03/02/18 2257 MR#: [id number] Acct: [id number] Name: MOUNA MOORE Rep #: [id number] : 1940 77 From: Clifton John MD Attending Dr: Vinh Silvestre MD Status: DIS IN Ordering Dr: Brianne Barrera DO Date: 03/02/18 Location: [facility] Sex: M C Admitted: 03/02/18 Test Reason [...] normal ECG Confirmed by YUNIER HUANG, CLIFTON ([id number]), film and video editor DEMETRIUS TAM ([id number]) on 03/04/2018 1:08:27 PM Referred By: Buffy Tariq Confirmed By:CLIFTON JOHN MD 03/04/18 1308 Date Clifton John MD CC: Buffy Tariq; Vinh Silvestre MD; Damir Govea MD; Brianne Barrera DO Signed DISCHARGE SUMMARY Observed: 03/04/2018 Status: F Source: [place] 8:41 AM [facility] Medical Records Department [address] [place] [address] Discharge Summary 03/04/18 0832 MR#: [id number] Acct: [id number] Name: MOUNA MOORE Rep #: [id number] : 1940 77 From: Vinh Silvestre MD PCP: Damir Govea MD Status: ADM IN Location: [place] [address] Discharge Date and Diagnosis - Problem List [...] Anxiety and Depression who presents to the [facility] ED on 03/02/18 with history of ongoing [...] applicable Code Visit Inpatient E AND M: 00560 Disch Hosp 03/04/18 0841 <Electronically signed by Vinh Silvestre MD> Date Vinh Silvestre MD Cosigner Signature (if applicable): Date CC: Vinh Silvestre MD; Damir Govea MD Signed DISCHARGE INSTRUCTION Observed: 03/04/2018 Status: F Source: [place] 8:32 [facility] REPOSITORY [facility] Medical Records Department [address] [place] [address] Instructions for Home/Discharge Instructions 03/04/18 0830 MR#: [id number] Acct: [id number] Name: MOUNA MOORE Rep #: [id number] : 1940 77 From: Vinh Silvestre MD [...] Status: F Source: [place] 1:48 PM [facility] Medical Records Department [address] [place] [address] Operative Report 03/03/18 1346 MR#: [id number] Acct: [id number] Name: MOUNA MOORE Rep #: [id number] : 1940 77 From: Mustapha Valverde MD PCP: Damir Govea MD Status: ADM IN Location: [address] Problem List (1) Nephrolithiasis Status: Acute [...] went into the bladder with a 21 Faroese rigid cystourethroscope once I got inside the [...] URINALYSIS, COMPLETE Collected: 03/03/2018 Status: F Source: [place] 11:25 AM [facility] Order Comment: Order Date: 03/02/18 How [...] URINE SEEN Performed By: #### L400.0001 #### [facility] [place], [address] CONSULTATION Observed: 03/03/2018 Status: F Source: [place] 7:43 AM [facility] Medical Records Department [address] [place] [address] Consultation 03/03/18 0741 MR#: [id number] Acct: [id number] Name: MOUNA MOORE Rep #: [id number] : 1940 77 From: Mustapha Valverde MD PCP: Damir Govea MD Status: ADM IN [facility] Problem List (1) Nephrolithiasis Status: Acute (2) [...] Source: JUAN CARL[place] PROFILE (BMP) 5:06 AM [facility] TYPE CODE TESTS RESULT OUT OF [...] GAP 10 Performed By: #### L500.2500 #### [facility] [address] [place], [address] CBC W/DIFF, AUTOMATED Collected: 03/03/2018 Status: F Source: [place] 5:06 AM [facility] TYPE CODE TESTS RESULT OUT OF [...] Lymph 0.88 Performed By: #### L100.0100 #### [facility] [address] [facility] [place], [address] HISTORY AND PHYSICAL Observed: 03/03/2018 Status: F Source: [place] EXAM 12:58 AM [facility] Medical Records Department [address] [place] [address] History and Physical 03/02/18 0915 MR#: [id number] Acct: [id number] Name: MOOREIHSAN TOLENTINOPAYAL Jiménez Rep #: [id number] : 1940 77 From: Buffy Tariq PCP: Damir Govea MD Status: ADM IN Location: [place] [address] Problem List (1) Nephrolithiasis Status: Acute (2) [...] Anxiety and Depression who presents to the [facility] ED on 03/02/18 with history of ongoing [...] Anxiety and Depression who presents to the [facility] ED on 03/02/18 with history of ongoing [...] heparin. Code Visit Inpatient E AND M: 79417 Init Hosp L3 03/03/18 0058 <Electronically signed by Buffy Tariq > Date Buffy Tariq Cosigner Signature: Date (if applicable) CC: Buffy Tariq; Damir Goeva MD Signed EMERGENCY DEPARTMENT Observed: 03/02/2018 Status: F Source: [place] SUMMARY 11:53 PM [facility] Medical Records Department [address] [place] [address] Emergency Department Summary 03/02/18 2349 MR#: [id number] Acct: [id number] Name: MOOREIHSAN TOLENTINOPAYAL Jiménez Rep #: [id number] : 1940 77 From: Brianne Barrera DO [...] Intractable pain] This note was generated with Amadesa dictation software. It may contain incorrect words, [...] your Primary Care Provider. Call [facility] ([phone]) or report to the closest Emergency Room. Call 911 if necessary. 03/02/18 3842 <Electronically signed by Brianne Barrera DO> Date Brianne Barrera DO Cosigner Signature (If Indicated): Date CC: Damir Govea MD CBC W/DIFF, AUTOMATED Collected: 03/02/2018 Status: F Source: [place] 11:15 PM [facility] TYPE CODE TESTS RESULT OUT OF [...] Lymph 0.90 Performed By: #### L100.0100 #### [facility] [address] [facility] [address] [place], [place], [address] BASIC METABOLIC Collected: 03/02/2018 Status: F Source: [place] PROFILE (BMP) 11:15 PM [facility] TYPE CODE TESTS RESULT OUT OF [...] 10 Performed By: #### L500.2500, L501.4010 #### [facility] [address] [facility] [place], [address] TROPONIN-I Collected: 03/02/2018 Status: F Source: [place] 11:15 PM [facility] TYPE CODE TESTS RESULT OUT OF RANGE REFERENCE UNITS LAB L501.4010 <0.045 ng/mL Normal < 0.015 TROPONIN-I Result Comment: TROPONIN-I EXPECTED VALUES <0.045 Negative 0.045 - 0.590 Consistent with Cardiac Damage > OR = 0.600 Critical Value Not every elevated troponin is indicative of [place]. These values should be used with clinical judgement in examining the patient's clinical picture for diagnosis. To establish a diagnosis of [place] versus myocardial injury, there must be a demonstrated rise and/or fall in the troponin values, in addition to ischemic symptoms, EKG changes, new regional wall motion abnormality, and/or angiographical evidence. PLEASE NOTE: REFERENCE RANGES EDITED 17 Performed By: #### L500.2500, L501.4010 #### [facility] [address] [place], [address] BNP,B-TYPE NATRIURETIC Collected: 03/02/2018 Status: F Source: [place] PEPTIDE 11:15 PM [facility] TYPE CODE TESTS RESULT OUT OF RANGE REFERENCE UNITS LAB L503.6620 0-100 pg/mL High B-TYPE 479.1 ALDA PEP Performed By: #### L503.6620 #### [facility] [address] [place], [address] MAGNESIUM Collected: 03/02/2018 Status: F Source: [place] 11:15 PM [facility] TYPE CODE TESTS RESULT OUT OF RANGE REFERENCE UNITS LAB L501.5200 1.6-2.6 mg/dL Normal MG 2.3 Performed By: #### L501.5200 #### [facility] [address] [place], [address] ABDOMEN/PELVIS WITHOUT Observed: 03/02/2018 Status: F Source: [place] CONT 10:45 PM [facility] REPOSITORY [facility] Imaging Services [address] [place] [address] Abdomen/Pelvis without Cont MR#: [id number] Acct: [id number] Name: MOUNA MOORE Tino Rep #: [id number] : 1940 M 77 From: Debbi Vitale MD PCP: Damir Govea MD Status: REG ER Study: Abdomen/Pelvis without Cont Date of Exam: 03/02/18 Exam# [id number] Ordering Dr: Brianne Barrera DO STUDY: CT [...] CC: Damir Govea MD; Brianne Barrera DO Grocery Clerk Checking: Signed CHEST 1 VIEW Observed: 03/02/2018 Status: F Source: [place]UAN CARL[place] (PORTABLE) 10:45 PM [facility] REPOSITORY [facility] Imaging Services [address] [facility] [place] [place] [address] Chest 1 View (Portable) MR#: [id number] Acct: [id number] Name: MOUNA MOORE Rep #: [id number] : 1940 M 77 From: Debbi Vitale MD PCP: Damir Govea MD Status: REG ER Study: Chest 1 View (Portable) Date of Exam: 03/02/18 Exam# [id number] Ordering Dr: Brianne Barrera DO STUDY: X-RAY [...] CC: Damir Govea MD; Brianne Barrera DO Grocery Clerk Checking: Signed DISCHARGE INSTRUCTION Observed: 02/26/2018 Status: F Source: [place] 11:50 PM [facility] REPOSITORY [facility] Medical Records Department [address] [place] [address] Discharge Instruction 02/26/181705 MR#: [id number] Acct: [id number] Name: MOUNA MOORE Rep #: [id number] : 1940 77 From: Ramiro Jarrell MD [...] your Primary Care Provider. Call [facility] ([phone]) or report to the closest Emergency Room. Call 911 if necessary. 02/26/18 1240 <Electronically signed by Ramiro Jarrell MD> Date Ramiro Jarrell MD Cosigner Signature (If Indicated): Date CC: Damir Govea MD EMERGENCY DEPARTMENT Observed: 02/26/2018 Status: F Source: [place] SUMMARY 11:50 PM [facility] Medical Records Department [address] [place] [address] Emergency Department Summary 02/26/181700 MR#: [id number] Acct: [id number] Name: IHSAN MOOREPAYAL Jiménez Rep #: [id number] : 1940 77 From: Ramiro Jarrell MD [...] Elevated creatinine This note was generated with Amadesa dictation software. It may contain incorrect words, [...] your Primary Care Provider. Call [facility] ([phone]) or report to the closest Emergency Room. Call 911 if necessary. 02/26/18 2350 <Electronically signed by Ramiro Jarrell MD> Date Ramiro Jarrell MD Cosigner Signature (If Indicated): Date CC: Damir Govea MD CHEST 1 VIEW Observed: 02/26/2018 Status: F Source: [place] (PORTABLE) 3:20 PM [facility] Imaging Services [address] [place] [address] Chest 1 View (Portable) MR#: [id number] Acct: [id number] Name: MOUNA MOORE Rep #: [id number] : 1940 M 77 From: Arthur Gonzalez MD PCP: Damir Govea MD Status: REG ER Study: Chest 1 View (Portable) Date of Exam: 02/26/18 Exam# [id number] Ordering Dr: Ramiro Jarrell MD STUDY: X-RAY [...] Arthur Gonzalez MD at 15:57 EST Tel [phone], Service support , CC: Ramiro Jarrell MD; Damir Govea MD Grocery Clerk Checking: Signed ABDOMEN/PELVIS W IV CONT Observed: 02/26/2018 Status: F Source: [place] ONLY 3:20 PM [facility] Imaging Services [address] [place] [address] Abdomen/Pelvis W IV Cont ONLY MR#: [id number] Acct: [id number] Name: MOUNA MOORE Rep #: [id number] : 1940 77 From: Chirag Ashton MD PCP: Damir Govea MD Status: REG ER Study: Abdomen/Pelvis W IV Cont ONLY Date of Exam: 02/26/18 Exam# [id number] Ordering Dr: Ramiro Jarrell MD STUDY: CT [...] CC: Ramiro Jarrell MD; Damir Govea MD Grocery Clerk Checking: Signed CBC W/DIFF, AUTOMATED Collected: 02/26/2018 Status: F Source: [place] 3:05 PM [facility] TYPE CODE TESTS RESULT OUT OF [...] Lymph 1.35 Performed By: #### L100.0100 #### [facility] [address] [place], [address] COMPREHENSIVE METABOLIC Collected: 02/26/2018 Status: F Source: [place]UAN CARLOS [facility] 3:05 PM [facility] TYPE CODE TESTS RESULT OUT OF [...] Performed By: #### L500.4050, L501.2450, L501.4010 #### [facility] [place], [address] LIPASE Collected: 02/26/2018 Status: F Source: [place] 3:05 PM [facility] TYPE CODE TESTS RESULT OUT OF RANGE REFERENCE UNITS LAB L501.2450 73-393 U/L Normal LIPASE 84 Performed By: #### L500.4050, L501.2450, L501.4010 #### [facility] [address] [place], [address] TROPONIN-I Collected: 02/26/2018 Status: F Source: [place] 3:05 PM [facility] TYPE CODE TESTS RESULT OUT OF RANGE REFERENCE UNITS LAB L501.4010 <0.045 ng/mL Normal 0.016 TROPONIN-I Result Comment: TROPONIN-I EXPECTED VALUES <0.045 Negative 0.045 - 0.590 Consistent with Cardiac Damage > OR = 0.600 Critical Value Not every elevated troponin is indicative of [place]. These values should be used with clinical judgement in examining the patient's clinical picture for diagnosis. To establish a diagnosis of [place] versus myocardial injury, there must be a demonstrated rise and/or fall in the troponin values, in addition to ischemic symptoms, EKG changes, new regional wall motion abnormality, and/or angiographical evidence. PLEASE NOTE: REFERENCE RANGES EDITED 17 Performed By: #### L500.4050, L501.2450, L501.4010 #### [facility] [address] [place], [address] URINALYSIS, COMPLETE Collected: 02/26/2018 Status: F Source: [place] 2:50 PM [facility] Order Comment: How was Urine Obtained? [...] URINE SEEN Performed By: #### L400.0001 #### [facility] [address] [facility] [place], [address] 12 LEAD ELECTROCARDIOGRAM Observed: 01/24/2018 Status: F Source: [place] 9:09 AM [facility] Cardiovascular Services [address] [place] [address] 12 Lead EKG 01/21/18 1613 MR#: [id number] Acct: [id number] Name: MOUNA MOORE Rep #: [id number] : 1940 77 From: Clifton John MD [...] ECG Confirmed by YUNIER HUANG, CLIFTON ([id number]), film and video editor KATHERINE LOVE ([id number]) on 01/24/2018 9:09:03 AM Referred By: MASSIEL Confirmed By:CLIFTON JOHN MD 01/24/18 0909 Date Clifton John MD CC: Cinthya Parada MD; Damir Govea MD Signed EMERGENCY DEPARTMENT Observed: 01/22/2018 Status: F Source: [place] SUMMARY 12:55 AM [facility] Medical Records Department [address] [place] [address] Emergency Department Summary 01/21/18 1559 MR#: [id number] Acct: [id number] Name: MUONA MOORE Rep #: [id number] : 1940 77 From: Cinthya Parada MD [...] Complicated UTI This note was generated with Amadesa dictation software. It may contain incorrect words, [...] Please take the antibiotic as prescribed. Use smop-ocr-yhinnsq pain medication such as Tylenol or ibuprofen [...] problems, contact your Primary Care Provider. Call [facility] ([phone]) or report to the closest Emergency Room. Call 911 if necessary. 01/22/18 0055 <Electronically signed by Cinthya Parada MD> Date Cinthya Parada MD Cosigner Signature (If Indicated): Date CC: Damir Govea MD DISCHARGE INSTRUCTION Observed: 01/21/2018 Status: F Source: [place] CAR[place]OS 11:31 PM [facility] Medical Records Department [address] [place] [address] Discharge Instruction 01/21/181957 MR#: [id number] Acct: [id number] Name: MOOREMOUNA Rep #: [id number] : 1940 77 From: Cinthya Parada MD PCP: Damir Govea MD Status: [facility] ER ED Disposition - Plan for ED Patient: Disposition: Home or Assisted Living Chief Complaint: Hypertension Instructions: ED UTI Cystitis Male Prescriptions: Levofloxacin [Levaquin] 750 mg PO DAILY #5 tab Referrals: Damir Govea DO [Primary Care Provider] - 3-5 Days if not improving Additional Instructions: You have a urinary tract infection. Please take the antibiotic as prescribed. Use gfqf-bzo-tpfgdyk pain medication such as Tylenol or ibuprofen [...] your Primary Care Provider. Call [facility] ([phone]) or report to the closest Emergency Room. Call 911 if necessary. 01/21/18 5681 <Electronically signed by Cinthya Parada MD> Date Cinthya Parada MD Cosigner Signature (If Indicated): Date CC: Damir Govea MD URINALYSIS, COMPLETE Collected: 01/21/2018 Status: F Source: JUAN CARLOS 6:00 PM [facility] Order Comment: How was Urine Obtained? [...] URINE SEEN Performed By: #### L400.0001 #### [facility] [address] [place], [place], [address] Observed: 01/21/2018 Status: F Source: [place] CULTURE, URINE 6:00 PM [facility] Urine Culture ORGANISM 1: Presumptive E. coli [place] Count >100,000 Presumptive E. coli: REACTION Amoxacillin/Clavulanic [...] <=20 S (NF) indicates non-formulary drug at [facility]. Approval by Infectious Disease Specialist required before non-formulary drugs may be ordered and/or dispensed. Performed By: #### M100.0650 #### [facility] [address] [place], [place], [address] CHEST PA AND LATERAL Observed: 01/21/2018 Status: F Source: [place] 4:02 PM [facility] Imaging Services [address] [place] [address] Chest PA and Lateral MR#: [id number] Acct: [id number] Name: MOOREMOUNA Rep #: [id number] : 1940 M 77 From: Kadeem Alexis MD PCP: Damir Govea MD Status: REG ER Study: Chest PA and Lateral Date of Exam: 01/21/18 Exam# [id number] Ordering Dr: Cinthya Parada MD STUDY: X-RAY [...] CC: Cinthya Parada MD; Damir Govea MD Grocery Clerk Checking: Signed CBC W/DIFF, AUTOMATED Collected: 01/21/2018 Status: F Source: [place] 4:00 PM [facility] TYPE CODE TESTS RESULT OUT OF [...] Lymph 1.97 Performed By: #### L100.0100 #### [facility] [address] [place], [place], [address] COMPREHENSIVE METABOLIC Collected: 01/21/2018 Status: F Source: [facility] 4:00 PM [facility] TYPE CODE TESTS RESULT OUT OF [...] 6 Performed By: #### L500.4050, L501.4010 #### [facility] [address] [facility] [place], [address] TROPONIN-I Collected: 01/21/2018 Status: F Source: [place] 4:00 PM [facility] TYPE CODE TESTS RESULT OUT OF RANGE REFERENCE UNITS LAB L501.4010 <0.045 ng/mL Normal < 0.015 TROPONIN-I Result Comment: TROPONIN-I EXPECTED VALUES <0.045 Negative 0.045 - 0.590 Consistent with Cardiac Damage > OR = 0.600 Critical Value Not every elevated troponin is indicative of [place]. These values should be used with clinical judgement in examining the patient's clinical picture for diagnosis. To establish a diagnosis of [place] versus myocardial injury, there must be a demonstrated rise and/or fall in the troponin values, in addition to ischemic symptoms, EKG changes, new regional wall motion abnormality, and/or angiographical evidence. PLEASE NOTE: REFERENCE RANGES EDITED 17 Performed By: #### L500.4050, L501.4010 #### [facility] [address] [facility] [place], [address] XR CHEST 2 VIEWS Observed: 04/30/2017 Status: F Source: [facility] 9:24 AM FOUNDATION REPOSITORY ORIGINAL XR CHEST [...] SEVERITY SOURCE 03/02/2018 Drug No Known Unknown [facility] Allergy/4160 Allergies/F00 Hospital 59755(SNOMED 9209374(RXNOR Repository CT) M) ENCOUNTERS ENCOUNTERS ADMIT/DISCHARGE ACCOUNT NUMBER ADMITTING ENCOUNTER LOCATION SOURCE CLASS 03/03/2018 [id number] [place], Ambulatory BMSBuilding: [place] Buffy [facility] Repository 03/03/2018 [id number] [place], Ambulatory BMSBuilding: [place] Buffy BMS.[facility] Repository 03/02/2018/03/04/19 [id number] [place], Inpatient [place] 19 Buffy Encounter [facility] ding:[id number] Repository : ZF517Hru: 1 03/02/2018 [id number] [place], Ambulatory BMSBuilding: [place] Buffy BMS.[facility] Repository 02/26/2018/02/26/19 [id number] Emergency [place] 19 [facility] ding:ED Repository 02/26/2018 [id number] Ambulatory BMSBuilding: Juan Carlos BMS.[facility] Repository 01/21/2018/01/22/20 [id number] Emergency [place] 18 [facility] ding:ED Repository 04/30/2017/05/01/19 [id number] Ambulatory [address] ding:[facility] Foundation Repository PAYERS PAYERS ENCOUNTER GUARANTOR PAYER SUBSCRIBER SOURCE 03/03/2018 MOUNA D Primary NOT GIVENUNK [place] [id number] S Insurance:SELF PAY [place] Number: Effective Repository [id number]: (330) Date:2018-03-02 () 03/03/2018 MOUNA D Primary NOT GIVENUNK Juan [place] [id number] S Insurance:SELF PAY [place] Number: Effective Repository [id number]: (330) Date:2018-03-03 (HP) 03/02/2018 MOUNA D Primary MOUNA D Juan [place] [id number] S Insurance:CATHOLIC YODERDOB: [facility] Number: [id number] [id number] Repository [address]Nvp: (330) Date:2018-03-02 () 03/02/2018 Secondary MOUNA D [place] Insurance:IMMERGRUNPo YODERDOB: [facility] Number: [id number] [id number] Repository Date:1258-50-45JZ [address] [place] [address]GT: 03/02/2018 Tertiary NOT GIVENUNK [place] Insurance:SELF PAY [facility] Number: Effective Repository Date:2018-03-02 03/02/2018 MOUNA D Primary NOT GIVENUNK [place] [id number] S Insurance:SELF PAY [place] Number: Effective Repository [id number]: (330) Date:2018-03-02 (HP) 02/26/2018 MOUNA D Primary MOUNA D [place] [id number] S Insurance:CATHOLIC YODERDOB: [facility] Number: [id number] [id number] Repository [address]Zld: (330) Date:2018-02-26 () 02/26/2018 Secondary MOUNA D [place] Insurance:IMMERGRUNPo YODERDOB: [facility] Number: [id number] Hospital [id number] Repository Date:0936-15-20CC [address] [facility] [address]IT: 02/26/2018 Tertiary NOT GIVENUNK [place] Insurance:SELF PAY [facility] Number: Effective Repository Date:2018-02-26 02/26/2018 MOUNA D Primary MOUNA D [place] [id number] S Insurance:CATHOLIC YODERDOB: [facility] RDAPPLE [facility] Number: [id number] [id number] Repository [address]Flv: (330) Date:2018-02-26 [phone] (HP) 02/26/2018 Secondary NOT GIVENUNK Juan Carlos Insurance:SELF PAY [facility] [facility] Number: Effective Repository Date:2018-02-26 01/21/2018 MOUNA D Primary MOUNA D Juan Carlos [id number] Insurance:CATHOLIC [facility]ODERDOB[facility] [place]: [id number] [id number] Repository [address]Kxt: [phone] Date:2018-01-21 [phone] (HP) 01/21/2018 Secondary NOT GIVENUNK Juan Carlos Insurance:SELF PAY [facility] Number: Effective Repository Date:2018-01-21 04/30/2017 MOUNA D Primary MOUNA D [facility] YODERDOB: Insurance:SELF [facility]ERDOB: [facility] Number: [id number] Repository [place] Effective [address], [place] Date:2017-04-30 - [place], [place] [address]Ohl: [phone] Name:[id number]: [id number] (HP)Tel: [phone] (HP) [phone] ([phone])
== END 2018-03-04 11:20 | disposition home or self-care (01) | DRG 670 ==
LOC: ED 23:22 → MS3 03-03 00:34
PROVIDERS: Urology; Admitting Provider Family Medicine; Emergency Provider Emergency Medicine; Family Provider Family Medicine; PCP Family Medicine; Referring Provider Family Medicine; Visit Provider Family Medicine
PROC: 0TJ98ZZ Inspection of Ureter, Via Natural or Artificial Opening Endoscopic (ICD-10-PCS; CPT 52352; principal; 2018-03-03 12:55)
DX: N13.2 Hydronephrosis with renal and ureteral calculous obstruction (principal); N17.9 Acute kidney failure, unspecified; E78.5 Hyperlipidemia, unspecified; E66.9 Obesity, unspecified; Z68.30 Body mass index [BMI] 30.0-30.9, adult; N40.0 Benign prostatic hyperplasia without lower urinary tract symptoms; Z79.899 Other long term (current) drug therapy; F41.9 Anxiety disorder, unspecified; F32.9 Major depressive disorder, single episode, unspecified; I11.0 Hypertensive heart disease with heart failure; I50.9 Heart failure, unspecified; R91.1 Solitary pulmonary nodule
CPT/HCPCS: 36415; 71045; 74176; 80048; 81001; 83735; 83880; 84484; 85025; 93005; 97802; 99285; J7030; A4216; C1769; J2405

== ENCOUNTER → 2018-03-18 12:56 | Outpatient (CLI) | payer SELFPAY ==
[2018-03-03 01:10] VITALS: BMI 30.4
--- NOTE | 2018-03-18 13:05 | RAD_ITS ---
STUDY: X-RAY - ABDOMEN/PELVIS REASON FOR EXAM: Male, 77 years old. Kidney stone surgery last week, follow-up. TECHNIQUE: KUB COMPARISON: None. FINDINGS: There are no visible calculi overlying the kidneys or along the course of the ureters. Unremarkable bowel pattern. No acute intra-abdominal process is evident. 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 Mild degenerative features of the hip joints, mild acetabular margin osteophytic spurring. RAD/Abdomen Single View IMPRESSION: There are no visible retained calculi of the kidneys or ureters. Electronically Signed: Andrew Anaya MD at 12:19 EST Tel , Service support ,
== END ==
PROVIDERS: Family Provider Family Medicine; PCP Family Medicine; Referring Provider Urology; Visit Provider Urology
DX: N20.0 Calculus of kidney (principal)
CPT/HCPCS: 74018

== ENCOUNTER 2019-03-30 04:27 | Inpatient (IN) | payer OTHER, SELFPAY ==
[2018-03-03 01:10] VITALS: BMI 30.4
[2019-03-30] VITALS (11 sets, daily range): BP systolic 110–153; BP diastolic 52–81; PULSE 56–96; RESP 15–18; TEMP 36.2–37.2; O2SAT 94–100; BMI 32.1; BMI 30.5
--- NOTE | 2019-03-30 04:43 | ED.VISSUMM ---
- ER Visit Summary Date of Service: 03/30/19 Chief Complaint: Left ankle pain History of Present Illness: The patient is a 78 M who presents with left ankle pain that began this morning. Patient states he slipped on a patch of ice and twisted his left ankle. Patient thinks his left ankle inverted and was plantarflexed. Patient describes the pain is aching. Patient states pain is worse with movement. Patient denies any paresthesias or weakness. Patient denies any head injury or loss of consciousness. Patient denies any other injuries. Physical Examination: Vital signs are stable. Patient is afebrile. Patient is in no acute distress. Musculoskeletal exam reveals tenderness over the medial and lateral malleoli of the left ankle. There is edema and ecchymosis noted. There is no obvious deformity noted. Range of motion was limited in all motions of the left ankle secondary to pain. There is no tenderness over the fifth metatarsal or proximal fibula. Pedal pulses are equal bilaterally. Sensation was intact light touch in all digits. Capillary refill was less than 2 seconds in all digits. Test Results: X-rays of the left ankle were obtained. There are spiral oblique fractures of the distal tibia and fibula shafts. These were interpreted by the radiologist and myself. Emergency Department Course and Treatment: Patient was given a dose of morphine here. Case was discussed with Dr. Duong Lucio from orthopedics. He recommended admitting the patient to the hospitalist. He wants to take the patient for surgery this afternoon. Patient is agreeable with this. Case was discussed with Dr. Tariq, hospitalist. She will admit the patient to her service. Basic labs and chest x-ray were obtained. EKG was obtained. Disposition: Admit to hospital Impression: Acute fracture left distal tibia and fibula This note was generated with [employer] dictation software. It may contain incorrect words, spelling, and punctuation that were not noted in review of the chart prior to signing ED Disposition - Plan for ED Patient: Disposition: Acute Care [facility] Diagnosis: Closed fracture of distal end of left fibula and tibia Instructions: FRACTURE, Lower Extremity Referrals: Damir Yang DO [Primary Care Provider] - Duong Lucio MD [STAFF PHYSICIAN] -
--- NOTE | 2019-03-30 04:50 | RAD_ITS ---
HISTORY: FALL, LT ANKLE PAIN ADDITIONAL HISTORY: None provided. TECHNIQUE: Left ankle 3 views Number of images including paperwork: 3 COMPARISON: None FINDINGS: BONES: Spiral fractures of the left distal tibia and fibula with 11 mm of lateral displacement of the distal tibial fracture and about 3 mm of lateral displacement of the distal fibula fracture. No other acute fracture. Old left mid fibula fracture. JOINTS: No subluxation. SOFT TISSUES: No distinct foreign body. RAD/Ankle min 3 Views IMPRESSION: Left distal tibia and fibula fractures. at 0525 Reported and signed by: Nunu Velázquez MD Electronically Signed: Nunu Velázquez MD at 5:25 EST Tel , Service support ,
[2019-03-30] MEDS: Morphine 4 MG/ML Syringe IM (05:12)
--- NOTE | 2019-03-30 05:24 | EKG12_ITS ---
Test Reason : PRE-OP Blood Pressure : / mmHG Vent. Rate : 064 BPM Atrial Rate : 064 BPM P-R Int : 184 ms QRS Dur : 086 ms QT Int : 400 ms P-R-T Axes : 018 023 041 degrees QTc Int : 412 ms Sinus rhythm with frequent Premature ventricular complexes Otherwise normal ECG Confirmed by LAMBERT HUANG, RAVEN ([id number]), rewrite editor MICHELLE BACK ([id number]) on 04/01/2019 9:01:09 AM Referred By: JESSICA Confirmed By:RAVEN VERDIN MD
--- NOTE | 2019-03-30 05:25 | RAD_ITS ---
HISTORY: COUGH ADDITIONAL HISTORY: None provided. TECHNIQUE: Frontal chest radiograph. Number of images including paperwork: 1 COMPARISON: 03/02/2018 FINDINGS: LUNGS AND PLEURA: No consolidation, mass or pleural effusion. CARDIAC SILHOUETTE: Stable. MEDIASTINUM AND JUSTIN: Unchanged aortic calcification and tortuosity. UPPER ABDOMEN: Unremarkable. SKELETON AND SOFT TISSUES: No acute findings. Degenerative changes. OTHER DEVICES AND HARDWARE: None. RAD/Chest 1 View (Portable) IMPRESSION: No acute cardiopulmonary abnormality. at 0546 Reported and signed by: Nunu Velázquez MD Electronically Signed: Nunu Velázquez MD at 5:46 EST Tel , Service support ,
--- NOTE | 2019-03-30 05:26 | PCM.HP.STD ---
Problem List (1) Fracture of left tibia and fibula Status: Acute Qualifiers: Encounter type: initial encounter Fracture type: closed Qualified Code(s): S82.202A - Unspecified fracture of shaft of left tibia, initial encounter for closed fracture; S82.402A - Unspecified fracture of shaft of left fibula, initial encounter for closed fracture (2) Nephrolithiasis Status: Chronic (3) Anxiety and depression Status: Chronic (4) CHF (congestive heart failure) Status: Chronic Qualifiers: Heart failure type: unspecified Heart failure chronicity: chronic Qualified Code(s): I50.9 - Heart failure, unspecified (5) HLD (hyperlipidemia) Status: Chronic Qualifiers: Hyperlipidemia type: pure hypercholesterolemia Qualified Code(s): E78.00 - Pure hypercholesterolemia, unspecified; E78.0 - Pure hypercholesterolemia (6) HTN (hypertension) Status: Chronic Qualifiers: Hypertension type: essential hypertension Qualified Code(s): I10 - Essential (primary) hypertension (7) Obesity (BMI 30.0-34.9) Status: Chronic History of Present Illness Date of Admission: 03/30/19 Chief Complaint: Left ankle pain The patient is a 77 y/o M w/ PMHx: CHF Unclear type, HTN, HLD, Obesity, Anxiety and Depression who presents to the [facility] ED 03/30/19 with unfortunate history of mechanical fall noted to have slipped on a patch of ice and unfortunately twisted his left ankle in the process with severe onset 10 out of 10 pain, sharp pain following, worse with any movement attempts with no specific paresthesias associated but ongoing severe pain, debility, unable to bear weight prompting eventual ED presentation. Work-up in the ED included T 98.4, heart rate 60, BP 153/77, respiratory rate 18, 96% on room air, plain film of the left ankle with an acute fracture of the left distal tibia and fibula with the ED placement of splint pending orthopedic surgery evaluation. Chest x-ray, EKG, CBC, CMP, PTT, INR and troponin pending upon requested evaluation of patient. Past Medical History Past Medical History (Chronic Problems): Chronic Problems Nephrolithiasis (Chronic) CHF (congestive heart failure) (Chronic) HTN (hypertension) (Chronic) HLD (hyperlipidemia) (Chronic) Obesity (BMI 30.0-34.9) (Chronic) Anxiety and depression (Chronic) Allergies No Known Allergies Allergy (Verified 03/02/18 22:28) Home Medications: Ambulatory Orders Medication Instructions Recorded Atorvastatin Calcium [Lipitor] 40 mg PO QHS 01/21/18 Nebivolol HCl [Bystolic (Beta 10 mg PO DAILY 01/21/18 Wade)] Venlafaxine XR [Effexor Xr] 75 mg PO DAILY 01/21/18 Hydrochlorothiazide [Hctz] 25 mg PO DAILY 03/30/19 Telmisartan [Micardis] 40 mg PO DAILY 03/30/19 Surgical History: - - Appendectomy. Psychiatric History: Anxiety, Depression Lives: Alone Smoking Status: Never smoker Tobacco Use: Non-smoker Alcohol: None Drugs: None - *Family History Maternal History Items: - - Patient denies any marked maternal or paternal family history including heart disease, diabetes, cancer. Paternal History Items: - - Patient denies any marked maternal or paternal family history including heart disease, diabetes, cancer. Review of Systems Constitutional: Reports: Malaise, Weakness, Fatigue. Denies: Chills, Fever, Weight Change HEENT: Denies: Head Aches, Sinus Congestion, Sinus Drainage Cardiovascular: Denies: Chest Pain, Palpitations Respiratory: Denies: Cough, Shortness of breath at rest, Sputum production Gastrointestinal: Denies: Abdominal Pain, Nausea, Vomiting Genitourinary: Denies: Dysuria Musculoskeletal: Reports: Joint Pain, Joint stiffness, Joint swelling, Joint Tenderness, Leg Pain, Muscle pain Skin: Denies: Rash, Wounds Neurological: Denies: Numbness, Tingling, Focal weakness Psychiatric: Reports: Anxiety, Depression. Denies: Homicidal Ideations, Suicidal Ideations Hematologic/ Lymphatic: Denies: Easy Bruising, Easy Bleeding VTE Information - Inpt Only VTE Present on Admission: No VTE Mechan Device Prophylaxis: SCD's VTE Pharm Prophylaxis ordered?: No Reason prophylaxis not ordered:: Medical Contraindication - Holding for operative intervention. Initiate following. Patient Problems: Active and Suspected Problems Closed fracture of distal end of left fibula and tibia (Acute) Fracture of left tibia and fibula (Acute) Subjective: Seated upright in the ED bed, fatigued appearance, LLE pain improved w/ regimen. Objective: Physical Examination: General: awake, alert, oriented x 3 and cooperative, seated upright in the ED bed in no apparent distress, notes left lower extremity pain improved with recent regimen. Skin: normal color, turgor, no icterus, cyanosis except noted ecchymoses over the left lower extremity distally. HEENT: AT/NC, EOMI, PERRLA, MMM, no carotid bruits or JVD noted. Lungs: CTA bilaterally, moderate effort, mild decrease BL bases, no rales, ronchi or wheezing. Heart: Regular rate and rhythm; no gallop, rub audible. Abdomen: soft, obese, NTTP, ND, normal BS, no HSM. Extremities: no cyanosis, clubbing, left lower extremity with tenderness palpation of the medial and lateral malleoli of the left ankle with mild edema and ecchymosis noted status post fall with limited range of motion but able to move toes, sensation intact. Neurological: patient awake, alert, oriented x 3; cognitive function intact; pupils equally reactive to light and accomodation; cranial nerves II-XII grossly normal, moving all 4 extremities although limitation left lower extremity given acute presentation with fracture, strength accordingly moderately to severely globally decreased. Psychiatric: affect appears normal, no acute evidence of depressive or anxiety feelings. - Physical Exam Vitals/I&O's: Vital Signs Temp Pulse Resp BP Pulse Ox 98.4 F 60 18 153/77 H 96 03/30/19 04:28 03/30/19 04:28 03/30/19 04:28 03/30/19 04:28 03/30/19 04:28 Oxygen Delivery Method Room Air Weight: 205 lb 0.478 oz Body Mass Index (BMI) 32.1 Finger Stick Blood Glucose 99 Assessment/Plan All Active Problems YUE (acute kidney injury) (Acute) Closed fracture of distal end of left fibula and tibia (Acute) Fracture of left tibia and fibula (Acute) The patient is a 77 y/o M w/ PMHx: CHF Unclear type, HTN, HLD, Obesity, Anxiety and Depression who presents to the [facility] ED 03/30/19 with unfortunate history of mechanical fall noted to have slipped on a patch of ice and unfortunately twisted his left ankle in the process with severe onset 10 out of 10 pain following, worse with any movement attempts with no specific paresthesias associated but ongoing severe pain. 1. Mechanical Fall with Acute left distal tibia and fibula fracture: Plain film noting left distal tibia and fibula fracture, splint placed per ED pending Orthopedic surgery evaluation. Orthopedic surgery consulted from ED and noted planned OR later in the day if medically appropriate. Will admit to MS, maintain NPO, continue gentle IVFs, obtain TSH, Mag level, monitor I/Os, frequent positioning, fall precautions, type and screen, pending admission CBC, CMP, coags additionally as well as troponin and EKG. Pain, anti-emetic regimen. PT/OT following operative intervention. CM consulted for discharge planning. Per Galeano Perioperative Cardiac Risk Index given >4 METS, age 78, Cr pending currently but prior < 1.5, independent living status, ASA 2/3 for orthopedic intervention, estimated risk of perioperative myocardial infarction or cardiac arrest low to moderate and NSQIP surgical risk calculator with risk for serious complication of 6.3% which is above average level with pre-operative assessment planned including EKG, trop, CXR to be obtained now prior to admission. Will additionally obtain ECHO as no prior and unclear CHF specific history. 2. CHF, Chronic, Unclear Type: Appears compensated, CXR requested, [facility], holding asa for OR, continue home BB, ARB, HCTZ regimen as well as statin. ECHO requested. 3. History Prior Noted Incidental RLL Nodule: 03/02/18 CT A/P w/ incidental 5 mm pleural-based nodule in the right lung base, likely fibrotic with recommendation at that time to follow-up outpatient. 4. Hypertension: Continue home BB, ARB, HCTZ, PRN hydralazine. 5. Hyperlipidemia: Continue home statin regimen. 6. Obesity: Weight loss and lifestyle changes encouraged. 7. BPH: Continue home flomax regimen. 8. Anxiety and Depression: Continue home effexor regimen. 9. DVT Prophylaxis: SCDs, hold chemoprophylaxis given planned intervention. Code Visit Inpatient E&M: 24925 Init Hosp L3
[2019-03-30 06:09] LABS: Absolute Neutrophil Count 3.7 X10^3/uL (2.0-7.7); Basophil# 0.04 X10^3/uL; Basophil% 0.6 % (0-1); Eosinophil# 0.29 X10^3/uL; Eosinophils% 4.5 % (0-5); Hematocrit 41.7 % (40-54); Hemoglobin 13.9 g/dL (13.0-16.5); Lymphocyte % 26.3 % (19-41); Mean Corp Hgb Conc 33.3 g/dL (32-36); Mean Corpuscular Hgb 34.1 pg (27.0-32.0); Mean Corpuscular Volume 102.2 fL (80-94); Monocyte# 0.74 X10^3/uL; Monocyte% 11.5 % (0-10); NRBC Flagged by Analyzer 0 % (0-5); Neutrophil # 3.68 X10^3/uL (2.7-7.7); Neutrophil % 56.9 % (47-70); Platelet Count 239 K/mm3 (150-450); RBC Distribution Width CV 13.3 % (11.6-14.6); RBC Distribution Width SD 50.4 fl (35.1-43.9); Red Blood Count 4.08 M/mm3 (4.6-6.2); White Blood Count 6.5 K/mm3 (4.4-11.0)
[2019-03-30 06:16] LABS: Partial Thromboplast Time 30.8 Seconds (24.1-36.2); Prothrombin Time (Protime)PT. 13.2 SECONDS (11.7-14.9)
[2019-03-30 06:26] LABS: ALB/GLOB Ratio 0.9 RATIO (0.9-2.4); AST(SGOT) 26 U/L (15-37); Alanine Aminotransfer ALT/SGPT 46 U/L (16-61); Albumin, Serum 3.9 g/dL (3.2-5.0); Alkaline Phosphatase 76 U/L (45-117); Anion Gap 6 (5-15); BUN 24 mg/dL (7-18); BUN/Creat Ratio 22.2 RATIO (10-20); Calcium,Total 9.7 mg/dL (8.5-10.1); Chloride 106 mmol/L (98-107); Creatinine, Serum 1.08 mg/dL (0.70-1.30); EST Glomerular Filtration Rate 71 mL/min (>60); Est Glom Filt Rate - Afr Amer 85 mL/min (>60); Globulin 4.2 g/dL (2.2-4.2); Glucose 122 mg/dL (74-106); Potassium 4.1 mmol/L (3.5-5.1); Protein, Total 8.1 g/dL (6.4-8.2); Sodium Level 140 mmol/L (136-145)
--- NOTE | 2019-03-30 06:52 | ECHOCS_ITS ---
Reason For Study: CHF Procedure This was a 2D Doppler, Color Flow transthoracic echocardiogram. Contrast injection was performed. Exam performed portable in patient room. Left Ventricle Normal size and thickness. The estimated ejection fraction is 65 %. No regional wall motion abnormalities noted. Right Ventricle Normal size and thickness. Normal systolic function. Atria Normal left atrium. Normal right atrium. Normal atrial septum. Mitral Valve The mitral valve is structurally normal. No prolapse or stenosis seen. Tricuspid Valve Normal tricuspid valve. Trivial tricuspid valve insufficiency. Right ventricular systolic pressure estimated to be 31 mmHg. Aortic Valve Trisinus/trileaflet aortic valve. Mild diffuse aortic valve thickening. Pulmonic Valve Normal pulmonic valve. Great Vessels Normal aortic root. Normal arch. Normal inferior vena cava. Inferior vena cava collapse with sniff. Pericardium/Pleural No pericardial effusion. Medication Diluted definity 3ml given slow IV push to enhance endocardial definition. MMode/2D Measurements & Calculations LVIDd: 4.4 cm IVSd: 1.2 cm LVOT diam: 2.1 cm LVIDs: 2.7 cm LVPWd: 1.2 cm FS: 38.4 % LVOT area: 3.6 cm2 Ao root diam: 3.2 cm LAV(MOD-sp4): 39.7 ml LA A4 area: 16.6 cm2 LA dimension: 3.9 cm RA A4 area: 17.5 cm2 Doppler Measurements & Calculations MV E max darren: 51.2 cm/sec Lat Peak E' Darren: 9.6 cm/sec Med Peak E' Darren: 7.3 cm/sec MV A max darren: 66.9 cm/sec E/E' lat: 5.4 E/E' med: 7.0 MV E/A: 0.77 Ao V2 max: 229.7 cm/sec LV V1 max: 103.9 cm/sec SV(LVOT): 103.9 ml Ao max P.1 mmHg LV V1 max P.3 mmHg Ao V2 mean: 156.7 cm/sec LV V1 mean P.4 mmHg Ao mean P.0 mmHg LV V1 mean: 74.0 cm/sec Ao V2 VTI: 49.7 cm LV V1 VTI: 28.8 cm VISHAL(I,D): 2.1 cm2 VISHAL(V,D): 1.6 cm2 PA V2 max: 80.9 cm/sec TR max darren: 250.8 cm/sec TR max P.2 mmHg Interpretation Summary The estimated ejection fraction is 65 %. Trivial tricuspid valve insufficiency. Right ventricular systolic pressure estimated to be 31 mmHg. The study was technically difficult. There is no comparison study available. Ordering Physician: Buffy Tariq Referring Physician: Damir Yang Performed By: Brodwolf, Abraham, RCS
[2019-03-30 07:23] LABS: Magnesium 2.1 mg/dL (1.6-2.6)
[2019-03-30] MEDS: 0.9% Normal Saline 1,000 ML 75 ML IV ×2 (07:30→18:42)
--- NOTE | 2019-03-30 09:56 | PN_ITS ---
Patient Problems: Active and Suspected Problems Closed fracture of distal end of left fibula and tibia (Acute) Fracture of left tibia and fibula (Acute) Reason for Visit: Left tibia-fibula fracture after fall on ice. Objective: Patient heart rate is good. Patient denies any significant cardiac or pulmonary disease. No coronary artery disease, stents, CHF, emphysema/asthma or smoking history. Vitals/I&O's: Vital Signs Temp Pulse Resp BP Pulse Ox 98.4 F 56 L 18 117/81 H 96 03/30/19 07:02 03/30/19 07:02 03/30/19 07:02 03/30/19 07:02 03/30/19 07:02 Oxygen Delivery Method Room Air Weight: 195 lb Body Mass Index (BMI) 30.5 Finger Stick Blood Glucose 99 General: Alert, Oriented x3, Cooperative HEENT: Atraumatic, PERRLA, EOMI, Normocephalic Neck: Supple, No JVD, Negative Carotid Bruits Lungs: Clear to auscultation, Normal air movement, No rhonchi, No wheeze, No rales Cardiovascular: Regular rate, Regular Rhythm, Normal S1, Normal S2, No murmurs Abdomen: Bowel Sounds Present, Soft, Non Tender, Non-Distended Extremities: No edema, Capillary Refill Less than 3 Seconds Skin: No rashes, No breakdown Musculoskeletal: Arthritic Changes, Tenderness - Left leg in a splint below knee. Tenderness present Neurological: Cranial nerves II-XII grossly intact, Deep Tendon Reflexes 2+/4 and Symmetrical, Neuro grossly intact Psych/Mental Status: Normal Affect, Appropriate Laboratory Results 03/30/19 05:56: WBC 6.5, RBC 4.08 L, Hgb 13.9, Hct 41.7, MCV 102.2 H, MCH 34.1 H , MCHC 33.3, RDW Std Deviation 50.4 H, RDW Coeff of [place] 13.3, Plt Count 239, MPV 9.0, Immature Gran % (Auto) 0.200, Neut % (Auto) 56.9, Lymph % (Auto) 26.3, Evans % (Auto) 11.5 H, Eos % (Auto) 4.5, Baso % (Auto) 0.6, Absolute Neuts (auto) 3.7, Absolute Lymphs (auto) 1.70, Nucleated RBC % 0 03/30/19 05:56: PT 13.2, INR 1.0, APTT 30.8 03/30/19 05:56: Sodium 140, Potassium 4.1, Chloride 106, Carbon Dioxide 28.0, Anion Gap 6, BUN 24 H, Creatinine 1.08, Estim Creat Clear Calc 54.40, Est GFR (MDRD) Af Amer 85, Est GFR (MDRD) Non-Af 71, BUN/Creatinine Ratio 22.2 H, Glucose 122 H, Calcium 9.7, Total Bilirubin 0.40, AST 26, ALT 46, Alkaline P hosphatase 76, Troponin I < 0.015, Total Protein 8.1, Albumin 3.9, Globulin 4.2, Albumin/Globulin Ratio 0.9 03/30/19 05:56: Magnesium 2.1, TSH 5.60 H 03/30/19 07:10: Blood Type O POSITIVE, Antibody Screen NEGATIVE, Antibody Identification NEGATIVE ANTIBODY PANEL Current Medications Acetaminophen (Tylenol) 650 mg PO Q6H PRN PRN PRN Reason: Pain Score 1-10/Temp > 100.7 F Al Hydroxide/Mg Hydroxide (Mylanta Ii) 30 ml PO Q6H PRN PRN PRN Reason: Gastric Burning Albuterol Sulfate (Ventolin Aerosols) 2.5 mg INHALATION Q2H PRN PRN PRN Reason: Shortness of Breath/Wheezing Atorvastatin Calcium (Lipitor) 40 mg PO QHS [facility] Famotidine (Pepcid) 20 mg PO BID [place] Glucagon () 1 mg IM .X1 PRN PRN Reason: Hypoglycemia Guaifenesin (Robitussin) 20 ml PO Q4H PRN PRN PRN Reason: COUGH Hydralazine HCl (Apresoline Iv) 10 mg IV Q4H PRN PRN PRN Reason: SBPO > 160 Hydrochlorothiazide (Hctz) 25 mg PO DAILY [place] Sodium Chloride () 1,000 mls @ 75 mls/hr IV .[id number] [place] Sodium Chloride () 250 mls @ 15 mls/hr IV .[id number] PRN PRN Reason: Saline Flush Sodium Chloride () 250 mls @ 15 mls/hr IV .[id number] PRN PRN Reason: Additional IVPB Infusion Cefazolin Sodium 2 gm/ Sodium (Chloride) 110 mls @ 150 mls/hr IV PREOP ONE Stop: 03/30/19 12:43 Dextrose (Dextrose 10%-Water) 250 mls @ 999 mls/hr IV .Q16M PRN; Protocol PRN Reason: HYPOGLYCEMIA Losartan Potassium (Cozaar) 50 mg PO DAILY [place] Magnesium Hydroxide (Milk Of Magnesia) 30 ml PO DAILY PRN PRN PRN Reason: Constipation Melatonin (Melatonin) 3 mg PO QHS PRN PRN PRN Reason: INSOMNIA Morphine Sulfate () 4 mg IV Q3H PRN PRN PRN Reason: Pain Score 6-10/10 Nebivolol (Bystolic) 10 mg PO DAILY [place] Ondansetron HCl (Zofran) 4 mg IV Q8H PRN PRN PRN Reason: NAUSEA/VOMITING Oxycodone HCl (Oxyir) 5 mg PO Q4H PRN PRN PRN Reason: Pain Score 4-5/10 Prochlorperazine Edisylate (Compazine Iv) 5 mg IV Q4H PRN PRN PRN Reason: Breakthrough nausea/vomiting Psyllium Hydrophilic Mucilloid (Metamucil) 1 packet PO DAILY PRN PRN PRN Reason: Constipation Senna/Docusate Sodium (Senokot-S, Shanelle-Colace) 2 tablet PO BID PRN PRN PRN Reason: Constipation Sodium Chloride () 10 - 40 ml IV UD PRN PRN Reason: SALINE FLUSH Throat Lozenges (Cepacol Sore Throat Lozenge) 1 lozenge MUCOUS MEM Q2H PRN PRN PRN Reason: SORE THROAT Venlafaxine HCl (Effexor Xr) 75 mg PO DAILY [facility] Vital Signs/Narrative: Vital Signs Temp Pulse Resp BP Pulse Ox 03/30/19 07:02 98.4 F 56 L 18 117/81 H 96 03/30/19 06:05 82 15 138/77 H 98 Medical Necessity - Tobacco Use Smoking Status: Never smoker Tobacco Use: Non-smoker Assessment/Plan All Active Problems YUE (acute kidney injury) (Acute) Closed fracture of distal end of left fibula and tibia (Acute) Fracture of left tibia and fibula (Acute) The patient is a 77 y/o M WITH MULTIPLE COMORBIDITIES INCLUDING CHF Unclear type, HTN, HLD, Obesity [facility] fall on ice resulting into twisting of left ankle and, severe pain and fracture. 1. Mechanical Fall with Acute left distal tibia and fibula fracture: Plain x- ray film was reviewed and shows spiral left distal tibia fibula fracture. Left leg was splinted in ER. Orthopedic surgery consulted. Scheduled for surgery. Blood pressure and heart rate controlled. No hypoxia or tachypnea. Continue IV fluid, pain control, intake and output charting. Perioperative assessment: As per Galeano, perioperative cardiac risk:>4 METS, estimated risk of perioperative myocardial infarction or cardiac arrest low to moderate. NSQIP surgical risk calculator with risk for serious complication of 6.3% which is above average level. Troponin normal. TSH elevated 5.6. Check free T4. Chest x-ray independently reviewed. No acute cardiopulmonary abnormality. Left CP angle not clearly visualized probably positional. 2D echo reviewed. EF 65%. Trivial TR, RVSP 65 mm 2. CHF, Chronic, Unclear Type: Appears compensated, CXR requested, no ECHO no nohemy in wireWAX, holding asa for OR, continue home BB, ARB, HCTZ regimen as well as statin. ECHO requested. 3. History Prior Noted Incidental RLL Nodule: 03/02/18 CT A/P w/ incidental 5 mm pleural-based nodule in the right lung base, likely fibrotic with recommendation at that time to follow-up outpatient. 4. Hypertension: Continue home BB, ARB, HCTZ, PRN hydralazine. 5. Hyperlipidemia: Continue home statin regimen. 6. Obesity: Weight loss and lifestyle changes encouraged. 7. BPH: Continue home flomax regimen. 8. Anxiety and Depression: Continue home effexor regimen. 9. DVT Prophylaxis: SCDs, hold chemoprophylaxis given planned intervention. Clinical Impression(s) from Imaging Studies Ankle X-Ray 03/30/19 04:50 IMPRESSION: Left distal tibia and fibula fractures. Chest X-Ray 03/30/19 05:25 IMPRESSION: No acute cardiopulmonary abnormality. Laboratory Results 03/30/19 05:56: WBC 6.5, RBC 4.08 L, Hgb 13.9, Hct 41.7, MCV 102.2 H, MCH 34.1 H , MCHC 33.3, RDW Std Deviation 50.4 H, RDW Coeff of [place] 13.3, Plt Count 239, MPV 9.0, Immature Gran % (Auto) 0.200, Neut % (Auto) 56.9, Lymph % (Auto) 26.3, Evans % (Auto) 11.5 H, Eos % (Auto) 4.5, Baso % (Auto) 0.6, Absolute Neuts (auto) 3.7, Absolute Lymphs (auto) 1.70, Nucleated RBC % 0 03/30/19 05:56: PT 13.2, INR 1.0, APTT 30.8 03/30/19 05:56: Sodium 140, Potassium 4.1, Chloride 106, Carbon Dioxide 28.0, Anion Gap 6, BUN 24 H, Creatinine 1.08, Estim Creat Clear Calc 54.40, Est GFR (MDRD) Af Amer 85, Est GFR (MDRD) Non-Af 71, BUN/Creatinine Ratio 22.2 H, Glucose 122 H, Calcium 9.7, Total Bilirubin 0.40, AST 26, ALT 46, Alkaline Phosphatase 76, Troponin I < 0.015, Total Protein 8.1, Albumin 3.9, Globulin 4.2, Albumin/Globulin Ratio 0.9 03/30/19 05:56: Magnesium 2.1, TSH 5.60 H 03/30/19 07:10: Blood Type O POSITIVE, Antibody Screen NEGATIVE, Antibody Identification NEGATIVE ANTIBODY PANEL
[2019-03-30] MEDS: Famotidine 20 MG Tablet PO ×2 (10:48→20:43)
--- NOTE | 2019-03-30 11:55 | CASEMGMT ---
RN CM Assessment Note Presentation: FIB/TIB FX Intro role of CM and purpose of RN CM assessment to patient in room. Pt is awake, alert, able to participate in assessment. Son also in room. Demographics, PCP and Pharmacy verified. Pt was living independently prior to admission. Plan is for surgery today. Recommend PT/OT after to assess activity level and any new equipment needs. PCP: Dr. Damir Yang Specialists: Juan Carlos Garcia Preferred Pharmacy: [facility] Insurance: [employer] Prescription Benefit: yes LNOK: SonBob Living Arrangements: Two story home, first floor set up. States he was independent prior to admission. Transportation: [facility] transportation DME: Has cane, walker, crutches. Was not using prior to admission HHC: none Patient DC goals: home DC PLAN: Home on discharge, possibly home with family.Will await PT/'OT evaluations after surgery. Nichole GUON RN ACM
--- NOTE | 2019-03-30 13:05 | NURSING ---
pt transported down to AC via bed at this time. IV pump and pre-op antibiotic sent with patient.
[2019-03-30] MEDS: Lactated Ringers 1,000 ML 100 ML IV (13:23)
[2019-03-30] MEDS: Morphine 4 MG/ML Syringe IV ×2 (13:25→20:42)
[2019-03-30] MEDS: Cefazolin 2 GM in 0.9% Normal Saline 100 ML IV (15:13)
--- NOTE | 2019-03-30 15:13 | RAD_ITS ---
STUDY: X-RAY - LEFT TIBIA AND FIBULA REASON FOR EXAM: Male, 78 years old. IM RODDING TECHNIQUE: Multiple intraoperative view(s) of the tibia and fibula were obtained. COMPARISON: March 30, 2019 at 04:44 hours FINDINGS: Status post ORIF for a distal shaft fracture of the tibia. Stable fracture of the fibula. Bony details are limited. RAD/Tibia & Fibula 2 Views IMPRESSION: Status post ORIF for a distal shaft fracture of the tibia. Electronically Signed: Mat Feng DO at 18:03 EST Tel [phone], Service support ,
--- NOTE | 2019-03-30 15:14 | PCM.CONS.GEN ---
Reason for Consult Date of Consultation: 03/30/19 History of Present Illness: []The patient is a 77 y/o M w/ PMHx: CHF Unclear type, HTN, HLD, Obesity, Anxiety and Depression who presents to the [facility] ED 03/30/19 with unfortunate history of mechanical fall noted to have slipped on a patch of ice and unfortunately twisted his left ankle in the process with severe onset 10 out of 10 pain, sharp pain following, worse with any movement attempts with no specific paresthesias associated but ongoing severe pain, debility, unable to bear weight prompting eventual ED presentation. Work-up in the ED included T 98.4, heart rate 60, BP 153/77, respiratory rate 18, 96% on room air, plain film of the left ankle with an acute fracture of the left distal tibia and fibula with the ED placement of splint pending orthopedic surgery evaluation. Chest x-ray, EKG, CBC, CMP, PTT, INR and troponin pending upon requested evaluation of patient. Past Medical History Past Medical History (Chronic Problems): Chronic Problems Nephrolithiasis (Chronic) CHF (congestive heart failure) (Chronic) HTN (hypertension) (Chronic) HLD (hyperlipidemia) (Chronic) Obesity (BMI 30.0-34.9) (Chronic) Anxiety and depression (Chronic) Allergies No Known Allergies Allergy (Verified 03/02/18 22:28) Home Medications: Ambulatory Orders Medication Instructions Recorded Atorvastatin Calcium [Lipitor] 40 mg PO QHS 01/21/18 Nebivolol HCl [Bystolic (Beta 10 mg PO DAILY 01/21/18 Wade)] Venlafaxine XR [Effexor Xr] 75 mg PO DAILY 01/21/18 Hydrochlorothiazide [Hctz] 25 mg PO DAILY 03/30/19 Telmisartan [Micardis] 40 mg PO DAILY 03/30/19 Surgical History: - - Appendectomy. Psychiatric History: Anxiety, Depression Lives: Alone Smoking Status: Never smoker Tobacco Use: Non-smoker Alcohol: None Drugs: None - *Family History Maternal History Items: - - Patient denies any marked maternal or paternal family history including heart disease, diabetes, cancer. Paternal History Items: - - Patient denies any marked maternal or paternal family history including heart disease, diabetes, cancer. Patient Problems: Active and Suspected Problems Closed fracture of distal end of left fibula and tibia (Acute) Fracture of left tibia and fibula (Acute) Objective: Patient seen wearing his splint. Capillary refill is normal. Neurovascular exam could not be performed because anesthesia was performing spinal and nerve block. Dorsalis pedis pulses intact. X-rays AP and lateral of left leg shows a distal tibia and fibula fracture. Distal tibia is displaced and rotated. Distal fibula is in reasonable alignment. Hunt B fracture. Laboratory work and vital signs reviewed From hospitalist reviewed Review of systems on the chart noted and reviewed - Physical Exam Vitals/I&O's: Vital Signs Temp Pulse Resp BP Pulse Ox 98.3 F 58 L 16 116/61 97 03/30/19 12:39 03/30/19 12:39 03/30/19 12:39 03/30/19 12:39 03/30/19 12:39 Oxygen Delivery Method Room Air Weight: 88.451 kg Body Mass Index (BMI) 30.5 Finger Stick Blood Glucose 99 Intake and Output for Last 24 Hours 03/28/19 03/29/19 03/30/19 23:59 23:59 23:59 Intake Total 438.75 / 438.75 Output Total 150 / 150 Balance 288.75 / 288.75 Laboratory Results 03/30/19 05:56: WBC 6.5, RBC 4.08 L, Hgb 13.9, Hct 41.7, MCV 102.2 H, MCH 34.1 H, MCHC 33.3, RDW Std Deviation 50.4 H, RDW Coeff of [place] 13.3, Plt Count 239, MPV 9.0, Immature Gran % (Auto) 0.200, Neut % (Auto) 56.9, Lymph % (Auto) 26.3, [place] % (Auto) 11.5 H, Eos % (Auto) 4.5, Baso % (Auto) 0.6, Absolute Neuts (auto) 3.7, Absolute Lymphs (auto) 1.70, Nucleated RBC % 0 03/30/19 05:56: PT 13.2, INR 1.0, APTT 30.8 03/30/19 05:56: Sodium 140, Potassium 4.1, Chloride 106, Carbon Dioxide 28.0, Anion Gap 6, BUN 24 H, Creatinine 1.08, Estim Creat Clear Calc 54.40, Est GFR (MDRD) Af Amer 85, Est GFR (MDRD) Non-Af 71, BUN/Creatinine Ratio 22.2 H, Glucose 122 H, Calcium 9.7, Total Bilirubin 0.40, AST 26, ALT 46, Alkaline Phosphatase 76, Troponin I < 0.015, Total Protein 8.1, Albumin 3.9, Globulin 4.2, Albumin/Globulin Ratio 0.9 03/30/19 05:56: Magnesium 2.1, TSH 5.60 H 03/30/19 07:10: Blood Type O POSITIVE, Antibody Screen NEGATIVE, Antibody Identification NEGATIVE ANTIBODY PANEL Current Medications Acetaminophen (Tylenol) 650 mg PO Q6H PRN PRN PRN Reason: Pain Score 1-10/Temp > 100.7 F Al Hydroxide/Mg Hydroxide (Mylanta Ii) 30 ml PO Q6H PRN PRN PRN Reason: Gastric Burning Albuterol Sulfate (Ventolin Aerosols) 2.5 mg INHALATION Q2H PRN PRN PRN Reason: Shortness of Breath/Wheezing Atorvastatin Calcium (Lipitor) 40 mg PO QHS [facility] Famotidine (Pepcid) 20 mg PO BID [facility] Last Admin: 03/30/19 10:48 Dose: 20 mg Documented by: Glucagon () 1 mg IM .X1 PRN PRN Reason: Hypoglycemia Guaifenesin (Robitussin) 20 ml PO Q4H PRN PRN PRN Reason: COUGH Hydralazine HCl (Apresoline Iv) 10 mg IV Q4H PRN PRN PRN Reason: SBPO > 160 Hydrochlorothiazide (Hctz) 25 mg PO DAILY [facility] Last Admin: 03/30/19 10:47 Dose: Not Given Documented by: Sodium Chloride () 1,000 mls @ 75 mls/hr IV .[id number] [facility] Last Infusion: 03/30/19 13:21 Dose: 0 mls/hr Documented by: Sodium Chloride () 250 mls @ 15 mls/hr IV .[id number] PRN PRN Reason: Saline Flush Sodium Chloride () 250 mls @ 15 mls/hr IV .[id number] PRN PRN Reason: Additional IVPB Infusion Dextrose (Dextrose 10%-Water) 250 mls @ 999 mls/hr IV .Q16M PRN; Protocol PRN Reason: HYPOGLYCEMIA Lactated Ringer's () 1,000 mls @ 100 mls/hr IV .Q10H [facility] Last Admin: 03/30/19 13:23 Dose: 100 mls/hr Documented by: Losartan Potassium (Cozaar) 50 mg PO DAILY [facility] Last Admin: 03/30/19 10:47 Dose: Not Given Documented by: Magnesium Hydroxide (Milk Of Magnesia) 30 ml PO DAILY PRN PRN PRN Reason: Constipation Melatonin (Melatonin) 3 mg PO QHS PRN PRN PRN Reason: INSOMNIA Morphine Sulfate () 4 mg IV Q3H PRN PRN PRN Reason: Pain Score 6-10/10 Last Admin: 03/30/19 13:25 Dose: 4 mg Documented by: Nebivolol (Bystolic) 10 mg PO DAILY [facility] Last Admin: 03/30/19 10:48 Dose: Not Given Documented by: Ondansetron HCl (Zofran) 4 mg IV Q8H PRN PRN PRN Reason: NAUSEA/VOMITING Oxycodone HCl (Oxyir) 5 mg PO Q4H PRN PRN PRN Reason: Pain Score 4-5/10 Prochlorperazine Edisylate (Compazine Iv) 5 mg IV Q4H PRN PRN PRN Reason: Breakthrough nausea/vomiting Psyllium Hydrophilic Mucilloid (Metamucil) 1 packet PO DAILY PRN PRN PRN Reason: Constipation Senna/Docusate Sodium (Senokot-S, Shanelle-Colace) 2 tablet PO BID PRN PRN PRN Reason: Constipation Sodium Chloride () 10 - 40 ml IV UD PRN PRN Reason: SALINE FLUSH Throat Lozenges (Cepacol Sore Throat Lozenge) 1 lozenge MUCOUS MEM Q2H PRN PRN PRN Reason: SORE THROAT Venlafaxine HCl (Effexor Xr) 75 mg PO DAILY [facility] Last Admin: 03/30/19 10:47 Dose: Not Given Documented by: Assessment/Plan All Active Problems YUE (acute kidney injury) (Acute) Closed fracture of distal end of left fibula and tibia (Acute) Fracture of left tibia and fibula (Acute) Assessment: Left distal tibia and fibula fracture risk benefits and alternative procedures discussed with patient and his family. His family is aware of his need for surgery. Consent was obtained. Possibility of pain nonunion malunion possible need for further surgery discussed. All of their questions answered. Risk of surgery including but not limited to from operative or postoperative complications. Risk of anesthetic complications such as heart attacks, strokes, seizures, or . Risk of infections. Risk of damage to nerves arteries tendons. Risk of inadvertent fractures or dislocations. Risk of bone or wound healing complications. Possibility of nonunion malunion pain stiffness weakness. Possible need for further surgery such as hardware removal. Risk of DVT PE and other potential complications could lead to or disability explained. No guarantees were stated or implied. All of their questions were answered. Appropriate informed consent was obtained and signed for surgical intervention. Plan Ancef for perioperative antibiotic. We will use aspirin for DVT prevention postoperatively
--- NOTE | 2019-03-30 17:16 | PCM.OP.PRO ---
Procedure Report Date of Procedure: 03/30/19 Preoperative diagnosis: Left tibia and fibula fracture, displaced, Postoperative diagnosis: same Title of operation: Reamed locked intramedullary left tibial nailing Surgeon: Duong Lucio Commercial Title Examiner: Sharmila Padilla PA-C Anesthesia: Spinal as well as peripheral nerve block Medications: Ancef Complications: None EBL 200 Indications for surgery please refer to dictated consult note Indications for assistant professor of sociology: refinery operator assistant was utilized throughout the entire procedure. They helped with patient positioning holding of the limb and holding of retractors. Helped with exposure throughout. They were vital in fracture reduction, maintenance of reduction with placement of guide roque, reaming, placement of intramedullary nail. They were also vital with placement of cross locking screws and maintaining limb alignment for such procedure. They were vital with wound closure, bandage, and splint application, and patient transfer. Without accounts receivable assistant, surgical time would have been increased and surgical outcome could have been less optimal. Patient was taken to the OR and transferred to the OR table. General anesthetic was given. Appropriate timeouts performed. Ancef given. Nonoperative lower extremity had a RIC hose and SCD on throughout. Operative lower extremity was prepped padded and draped in usual orthopedic sterile fashion for the procedure with the help of a physician assistant service manager. Incision was mapped out over the medial knee. Careful dissection brought us down medial to the patellar tendon. We dissected under the patellar tendon. Guidepin was placed centrally anteriorly. Position verified radiographically. We reamed the anterior cortex over that. We placed a slightly bent ball-tipped guide roque through that hole into the medullary canal of the tibia and while the physician assistant service manager held the fracture reduced. This was placed into the distal fracture fragment just above the ankle joint and verified with radiographs. We then reamed with a small reamer reaming up to a size {10.5}. Size {9 x300} mm appropriately length nail was placed over the guide roque while the assistant service manager held the fracture reduced and limb in appropriate alignment. Guide roque removed. Fracture reduced nicely and was impacted by the assistant service manager. Cross lock screws placed proximal medial under dynamic mode. 2 distal cross locking screws placed with the help of the assistant service manager from medial to lateral. Anterior to posterior cross locking screw also placed. X-rays taken throughout. Stress x-rays of the ankle taken to confirm intact syndesmosis ligaments as well as intact deltoid ligament. Therefore nonoperative treatment was decided on for the distal fibula fracture. wounds thoroughly irrigated. Roque entry site closure in layers. Skin saba utilized. Xeroform 4 x 4's ABD and splint applied by the assistant service manager. Patient awoken from anesthetic and transferred to room bed in recovery room in satisfactory condition. This note was generated with Yap dictation software. It may contain incorrect words, spelling, and punctuation that were not noted in checking the note before signing.
[2019-03-30] MEDS: Cefazolin 1 GM/50 ML BAG IV (20:42)
[2019-03-30] MEDS: Atorvastatin Calcium 40 MG Tablet PO (20:43)
[2019-03-30 21:09] LABS: Hemoglobin 11.8 g/dL (13.0-16.5)
[2019-03-30] MEDS: oxyCODONE 5 MG Tablet PO (22:40)
[2019-03-31] MEDS: Cefazolin 1 GM/50 ML BAG IV ×2 (03:03→08:44)
[2019-03-31] MEDS: Morphine 4 MG/ML Syringe IV (03:03)
[2019-03-31 03:06] VITALS: BP 131/71; PULSE 75; RESP 20; TEMP 37.2; O2SAT 93
[2019-03-31 05:25] LABS: Absolute Lymphocyte Count 1.27 X10^3/uL (0.83-4.51); Absolute Neutrophil Count 3.3 X10^3/uL (2.0-7.7); Basophil# 0.04 X10^3/uL; Basophil% 0.7 % (0-1); Eosinophil# 0.21 X10^3/uL; Eosinophils% 3.8 % (0-5); Hematocrit 34.3 % (40-54); Hemoglobin 11.2 g/dL (13.0-16.5); Lymphocyte # 1.27 X10^3/ul (4.0); Lymphocyte % 22.8 % (19-41); Mean Corp Hgb Conc 32.7 g/dL (32-36); Mean Corpuscular Hgb 33.4 pg (27.0-32.0); Mean Corpuscular Volume 102.4 fL (80-94); Mean Platelet Vol. 9.3 fl (6.2-12.0); Monocyte# 0.74 X10^3/uL; Monocyte% 13.3 % (0-10); NRBC Flagged by Analyzer 0 % (0-5); Neutrophil # 3.28 X10^3/uL (2.7-7.7); Platelet Count 200 K/mm3 (150-450); RBC Distribution Width CV 13.4 % (11.6-14.6); RBC Distribution Width SD 51.1 fl (35.1-43.9); Red Blood Count 3.35 M/mm3 (4.6-6.2); White Blood Count 5.6 K/mm3 (4.4-11.0)
[2019-03-31 05:47] LABS: ALB/GLOB Ratio 0.9 RATIO (0.9-2.4); AST(SGOT) 91 U/L (15-37); Alanine Aminotransfer ALT/SGPT 123 U/L (16-61); Albumin, Serum 3.1 g/dL (3.2-5.0); Alkaline Phosphatase 60 U/L (45-117); Anion Gap 7 (5-15); BUN 20 mg/dL (7-18); BUN/Creat Ratio 17.1 RATIO (10-20); Calcium,Total 8.2 mg/dL (8.5-10.1); Chloride 105 mmol/L (98-107); Creatinine, Serum 1.17 mg/dL (0.70-1.30); EST Glomerular Filtration Rate 64 mL/min (>60); Est Glom Filt Rate - Afr Amer 78 mL/min (>60); Estimated Creatinine Clearance 50.22 ml/min; Globulin 3.6 g/dL (2.2-4.2); Glucose 103 mg/dL (74-106); Potassium 3.8 mmol/L (3.5-5.1); Protein, Total 6.7 g/dL (6.4-8.2); Sodium Level 139 mmol/L (136-145); T4 Free Direct 0.75 ng/dL (0.76-1.46)
[2019-03-31] MEDS: Acetaminophen 325 MG Tablet 650 MG PO ×2 (06:12→15:15)
--- NOTE | 2019-03-31 07:08 | PN.ORTHO_ITS ---
Patient Problems: Active and Suspected Problems Closed fracture of distal end of left fibula and tibia (Acute) Fracture of left tibia and fibula (Acute) Subjective: Patient is postoperative day #1 from open reduction internal fixation left tibia with intramedullary nailing. He is seen with his family present. Patient denies chest pain or shortness of breath. No productive cough. He states before surgery yesterday his leg pain was 8 or 9 out of 10. Currently his leg pain is 3 out of 10. It is controlled with oral medications. He is hoping for discharge to home later today. Objective: Left lower extremity has a splint extending from his toes almost to the knee. Ankle is in good position at 90 degrees. He can wiggle his toes. He can feel light touch sensation at the toes. Capillary refill is normal. Dorsalis pedis pulses faintly palpable under his splint. No thigh pain. Legs are n eurovascular intact. RIC hose and SCDs on the right side. Laboratory work and vital signs reviewed - Physical Exam Vitals/I&O's: Vital Signs Temp Pulse Resp BP Pulse Ox 98.9 F 75 20 H 131/71 H 93 03/31/19 03:06 03/31/19 03:06 03/31/19 03:06 03/31/19 03:06 03/31/19 03:06 Oxygen Flow Rate (L/min) 2 Oxygen Delivery Method Room Air Weight: 88.451 kg Body Mass Index (BMI) 30.5 Finger Stick Blood Glucose 99 Intake and Output for Last 24 Hours 03/29/19 03/30/19 03/31/19 23:59 23:59 23:59 Intake Total 2280.42 / 2980.42 1388.75 / 1388.75 Output Total 150 / 575 875 / 875 Balance 2130.42 / 2405.42 513.75 / 513.75 Laboratory Results 03/30/19 05:56: Magnesium 2.1, TSH 5.60 H 03/30/19 07:10: Blood Type O POSITIVE, Antibody Screen NEGATIVE, Antibody Identification NEGATIVE ANTIBODY PANEL 03/30/19 20:58: Hgb 11.8 L, Hct 35.0 L 03/31/19 04:40: WBC 5.6, RBC 3.35 L, Hgb 11.2 L, Hct 34.3 L, MCV 102.4 H, MCH 33.4 H, MCHC 32.7, RDW Std Deviation 51.1 H, RDW Coeff of [place] 13.4, Plt Count 200, MPV 9.3, Immature Gran % (Auto) 0.400, Neut % (Auto) 59.0, Lymph % (Auto) 22.8, [place] % (Auto) 13.3 H, Eos % (Auto) 3.8, Baso % (Auto) 0.7, Absolute Neuts (auto) 3.3, Absolute Lymphs (auto) 1.27, Nucleated RBC % 0 03/31/19 04:40: Sodium 139, Potassium 3.8, Chloride 105, Carbon Dioxide 27.0, Anion Gap 7, BUN 20 H, Creatinine 1.17, Estim Creat Clear Calc 50.22, Est GFR (MDRD) Af Amer 78, Est GFR (MDRD) Non-Af 64, BUN/Creatinine Ratio 17.1, Glucose 103, Calcium 8.2 L, Total Bilirubin 1.00, AST 91 H, ALT 123 H, Alkaline Phosphatase 60, Total Protein 6.7, Albumin 3.1 L, Globulin 3.6, Albumin/Globulin Ratio 0.9, Free T4 0.75 L Current Medications Acetaminophen (Tylenol) 650 mg PO Q6H PRN PRN PRN Reason: Pain Score 1-10/Temp > 100.7 F Last Admin: 03/31/19 06:12 Dose: 650 mg Documented by: Al Hydroxide/Mg Hydroxide (Mylanta Ii) 30 ml PO Q6H PRN PRN PRN Reason: Gastric Burning Albuterol Sulfate (Ventolin Aerosols) 2.5 mg INHALATION Q2H PRN PRN PRN Reason: Shortness of Breath/Wheezing Atorvastatin Calcium (Lipitor) 40 mg PO QHS [facility] Last Admin: 03/30/19 20:43 Dose: 40 mg Documented by: Famotidine (Pepcid) 20 mg PO BID [facility] Last Admin: 03/30/19 20:43 Dose: 20 mg Documented by: Glucagon () 1 mg IM .X1 PRN PRN Reason: Hypoglycemia Guaifenesin (Robitussin) 20 ml PO Q4H PRN PRN PRN Reason: COUGH Hydralazine HCl (Apresoline Iv) 10 mg IV Q4H PRN PRN PRN Reason: SBPO > 160 Hydrochlorothiazide (Hctz) 25 mg PO DAILY [facility] Last Admin: 03/30/19 10:47 Dose: Not Given Documented by: Sodium Chloride () 1,000 mls @ 75 mls/hr IV .[id number] [facility] Last Infusion: 03/31/19 03:33 Dose: 75 mls/hr Documented by: Sodium Chloride () 250 mls @ 15 mls/hr IV .[id number] PRN PRN Reason: Saline Flush Sodium Chloride () 250 mls @ 15 mls/hr IV .[id number] PRN PRN Reason: Additional IVPB Infusion Dextrose (Dextrose 10%-Water) 250 mls @ 999 mls/hr IV .Q16M PRN; Protocol PRN Reason: HYPOGLYCEMIA Cefazolin Sodium () 1 gm in 50 mls @ 100 mls/hr IV Q6H [facility] Stop: 03/31/19 09:29 Last Infusion: 03/31/19 03:33 Dose: Infused Documented by: Losartan Potassium (Cozaar) 50 mg PO DAILY [facility] Last Admin: 03/30/19 10:47 Dose: Not Given Documented by: Magnesium Hydroxide (Milk Of Magnesia) 30 ml PO DAILY PRN PRN PRN Reason: Constipation Melatonin (Melatonin) 3 mg PO QHS PRN PRN PRN Reason: INSOMNIA Morphine Sulfate () 4 mg IV Q3H PRN PRN PRN Reason: Pain Score 6-10/10 Last Admin: 03/31/19 03:03 Dose: 4 mg Documented by: Nebivolol (Bystolic) 10 mg PO DAILY [facility] Last Admin: 03/30/19 10:48 Dose: Not Given Documented by: Ondansetron HCl (Zofran) 4 mg IV Q8H PRN PRN PRN Reason: NAUSEA/VOMITING Oxycodone HCl (Oxyir) 5 mg PO Q4H PRN PRN PRN Reason: Pain Score 4-5/10 Last Admin: 03/30/19 22:40 Dose: 5 mg Documented by: Prochlorperazine Edisylate (Compazine Iv) 5 mg IV Q4H PRN PRN PRN Reason: Breakthrough nausea/vomiting Psyllium Hydrophilic Mucilloid (Metamucil) 1 packet PO DAILY PRN PRN PRN Reason: Constipation Senna/Docusate Sodium (Senokot-S, Shanelle-Colace) 2 tablet PO BID PRN PRN PRN Reason: Constipation Sodium Chloride () 10 - 40 ml IV UD PRN PRN Reason: SALINE FLUSH Throat Lozenges (Cepacol Sore Throat Lozenge) 1 lozenge MUCOUS MEM Q2H PRN PRN PRN Reason: SORE THROAT Venlafaxine HCl (Effexor Xr) 75 mg PO DAILY [facility] Last Admin: 03/30/19 10:47 Dose: Not Given Documented by: Medical Necessity - Tobacco Use Smoking Status: Never smoker Tobacco Use: Non-smoker Assessment/Plan All Active Problems YUE (acute kidney injury) (Acute) Closed fracture of distal end of left fibula and tibia (Acute) Fracture of left tibia and fibula (Acute) His diagnosis and treatment options regarding his left leg fracture discussed with him and his family. Recommended ice and elevation. Narcotic oral medication if needed for pain. Otherwise can switch to Tylenol. Recommended aspirin 81 mg twice a day for DVT prevention. Nonweightbearing left lower extremity. Keep bandage on clean and dry. Follow-up in orthopedic office in 10 to 12 days. All of their questions answered. Orthopedically signing off. Can be notified if questions or concerns
[2019-03-31 07:36] VITALS: O2SAT 95
[2019-03-31 08:00] VITALS: BP 113/70; PULSE 66; RESP 16; TEMP 37; O2SAT 96
[2019-03-31] MEDS: 0.9% Normal Saline 1,000 ML 75 ML IV (08:43)
[2019-03-31] MEDS: Famotidine 20 MG Tablet PO ×2 (08:51→21:18)
[2019-03-31] MEDS: Nebivolol HCl 10 MG Tablet PO (08:51)
[2019-03-31] MEDS: Venlafaxine XR 75 MG Capsule PO (08:51)
[2019-03-31] MEDS: Losartan Potassium 50 MG Tablet PO (08:52)
[2019-03-31] MEDS: hydroCHLOROthiazide 25 MG Tablet PO (08:52)
[2019-03-31] MEDS: Polyethylene Glycol 3350 17 GM PACKET PO (12:51)
[2019-03-31] MEDS: oxyCODONE 5 MG Tablet PO ×2 (12:54→20:01)
[2019-03-31] MEDS: Bisacodyl 10 MG Suppository RECTAL (12:55)
[2019-03-31 14:00] VITALS: BP 138/78; PULSE 77; RESP 16; TEMP 37.9; O2SAT 96
--- NOTE | 2019-03-31 15:07 | PCM.PN.HOSP ---
Patient Problems: Active and Suspected Problems Closed fracture of distal end of left fibula and tibia (Acute) Fracture of left tibia and fibula (Acute) Reason for Visit: Left tibia fibula displaced spiral fracture Objective: Patient pain is well controlled about left leg, 3/10 intensity. Blood pressure is stable. Vitals/I&O's: Vital Signs Temp Pulse Resp BP Pulse Ox 98.6 F 66 16 113/70 96 03/31/19 08:00 03/31/19 08:00 03/31/19 08:00 03/31/19 08:00 03/31/19 08:00 Oxygen Flow Rate (L/min) 2 Oxygen Delivery Method Room Air Weight: 195 lb Body Mass Index (BMI) 30.5 Finger Stick Blood Glucose 99 Intake and Output for Last 24 Hours 03/29/19 03/30/19 03/31/19 23:59 23:59 23:59 Intake Total 2280.42 / 2980.42 2767.50 / 2767.50 Output Total 150 / 575 1225 / 1225 Balance 2130.42 / 2405.42 1542.50 / 1542.50 General: Alert, Oriented x3, Cooperative HEENT: Atraumatic, PERRLA, EOMI, Normocephalic Neck: Supple, No JVD, Negative Carotid Bruits Lungs: Clear to auscultation, No rhonchi, No wheeze, No rales, Diminished Cardiovascular: Regular rate, Regular Rhythm, Normal S1, Normal S2, No murmurs Abdomen: Bowel Sounds Present, Soft, Non Tender, Non-Distended Extremities: No edema, Capillary Refill Less than 3 Seconds Skin: No rashes, No breakdown Musculoskeletal: Arthritic Changes, Tenderness - Tenderness over operative region, left leg status post ORIF Neurological: Cranial nerves II-XII grossly intact, Deep Tendon Reflexes 2+/4 and Symmetrical, Neuro grossly intact Psych/Mental Status: Normal Affect, Appropriate Laboratory Results 03/30/19 20:58: Hgb 11.8 L, Hct 35.0 L 03/31/19 04:40: WBC 5.6, RBC 3.35 L, Hgb 11.2 L, Hct 34.3 L, MCV 102.4 H, MCH 33.4 H, MCHC 32.7, RDW Std Deviation 51.1 H, RDW Coeff of [place] 13.4, Plt Count 200, MPV 9.3, Immature Gran % (Auto) 0.400, Neut % (Auto) 59.0, Lymph % (Auto) 22.8, [place] % (Auto) 13.3 H, Eos % (Auto) 3.8, Baso % (Auto) 0.7, Absolute Neuts (auto) 3.3, Absolute Lymphs (auto) 1.27, Nucleated RBC % 0 03/31/19 04:40: Sodium 139, Potassium 3.8, Chloride 105, Carbon Dioxide 27.0, Anion Gap 7, BUN 20 H, Creatinine 1.17, Estim Creat Clear Calc 50.22, Est GFR (MDRD) Af Amer 78, Est GFR (MDRD) Non-Af 64, BUN/Creatinine Ratio 17.1, Glucose 103, Calcium 8.2 L, Total Bilirubin 1.00, AST 91 H, ALT 123 H, Alkaline Phosphatase 60, Total Protein 6.7, Albumin 3.1 L, Globulin 3.6, Albumin/Globulin Ratio 0.9, Free T4 0.75 L Current Medications Acetaminophen (Tylenol) 650 mg PO Q6H PRN PRN PRN Reason: Pain Score 1-10/Temp > 100.7 F Last Admin: 03/31/19 06:12 Dose: 650 mg Documented by: Al Hydroxide/Mg Hydroxide (Mylanta Ii) 30 ml PO Q6H PRN PRN PRN Reason: Gastric Burning Albuterol Sulfate (Ventolin Aerosols) 2.5 mg INHALATION Q2H PRN PRN PRN Reason: Shortness of Breath/Wheezing Atorvastatin Calcium (Lipitor) 40 mg PO QHS [facility] Last Admin: 03/30/19 20:43 Dose: 40 mg Documented by: Famotidine (Pepcid) 20 mg PO BID [facility] Last Admin: 03/31/19 08:51 Dose: 20 mg Documented by: Glucagon () 1 mg IM .X1 PRN PRN Reason: Hypoglycemia Guaifenesin (Robitussin) 20 ml PO Q4H PRN PRN PRN Reason: COUGH Hydralazine HCl (Apresoline Iv) 10 mg IV Q4H PRN PRN PRN Reason: SBPO > 160 Hydrochlorothiazide (Hctz) 25 mg PO DAILY [facility] Last Admin: 03/31/19 08:52 Dose: 25 mg Documented by: Sodium Chloride () 250 mls @ 15 mls/hr IV .[id number] PRN PRN Reason: Saline Flush Sodium Chloride () 250 mls @ 15 mls/hr IV .[id number] PRN PRN Reason: Additional IVPB Infusion Dextrose (Dextrose 10%-Water) 250 mls @ 999 mls/hr IV .Q16M PRN; Protocol PRN Reason: HYPOGLYCEMIA Losartan Potassium (Cozaar) 50 mg PO DAILY [facility] Last Admin: 03/31/19 08:52 Dose: 50 mg Documented by: Magnesium Hydroxide (Milk Of Magnesia) 30 ml PO DAILY PRN PRN PRN Reason: Constipation Melatonin (Melatonin) 3 mg PO QHS PRN PRN PRN Reason: INSOMNIA Morphine Sulfate () 4 mg IV Q3H PRN PRN PRN Reason: Pain Score 6-10/10 Last Admin: 03/31/19 03:03 Dose: 4 mg Documented by: Nebivolol (Bystolic) 10 mg PO DAILY [facility] Last Admin: 03/31/19 08:51 Dose: 10 mg Documented by: Ondansetron HCl (Zofran) 4 mg IV Q8H PRN PRN PRN Reason: NAUSEA/VOMITING Oxycodone HCl (Oxyir) 5 mg PO Q4H PRN PRN PRN Reason: Pain Score 4-5/10 Last Admin: 03/31/19 12:54 Dose: 5 mg Documented by: Polyethylene Glycol (Miralax) 17 gm PO DAILY [facility] Last Admin: 03/31/19 12:51 Dose: 17 gm Documented by: Prochlorperazine Edisylate (Compazine Iv) 5 mg IV Q4H PRN PRN PRN Reason: Breakthrough nausea/vomiting Psyllium Hydrophilic Mucilloid (Metamucil) 1 packet PO DAILY PRN PRN PRN Reason: Constipation Senna/Docusate Sodium (Senokot-S, Shanelle-Colace) 2 tablet PO BID PRN PRN PRN Reason: Constipation Sodium Chloride () 10 - 40 ml IV UD PRN PRN Reason: SALINE FLUSH Throat Lozenges (Cepacol Sore Throat Lozenge) 1 lozenge MUCOUS MEM Q2H PRN PRN PRN Reason: SORE THROAT Venlafaxine HCl (Effexor Xr) 75 mg PO DAILY [facility] Last Admin: 03/31/19 08:51 Dose: 75 mg Documented by: Medical Necessity - Tobacco Use Smoking Status: Never smoker Tobacco Use: Non-smoker Assessment/Plan All Active Problems YUE (acute kidney injury) (Acute) Closed fracture of distal end of left fibula and tibia (Acute) Fracture of left tibia and fibula (Acute) The patient is a 77 y/o M WITH MULTIPLE COMORBIDITIES INCLUDING CHF Unclear type, HTN, HLD, Obesity who [facility] for fall on ice resulting into twisting of left ankle and, severe pain and fracture. 1. Mechanical Fall with Acute left distal tibia and fibula fracture: Plain x-ray film was reviewed and shows spiral left distal tibia fibula fracture. Left leg was splinted in ER. Orthopedic surgery consulted. Scheduled for surgery. Blood pressure and heart rate controlled. No hypoxia or tachypnea. Continue IV fluid, pain control, intake and output charting. Perioperative assessment: As per Galeano, perioperative cardiac risk:>4 METS, estimated risk of perioperative myocardial infarction or cardiac arrest low to moderate. NSQIP surgical risk calculator with risk for serious complication of 6.3% which is above average level. Troponin normal. TSH elevated 5.6. Check free T4. Chest x-ray independently reviewed. No acute cardiopulmonary abnormality. Left CP angle not clearly visualized probably positional. EKG normal sinus rhythm with frequent PVCs at 64 bpm. 2D echo reviewed. EF 65%. Trivial TR, RVSP 65 mm. Normal right and left atrium. No significant valvular abnormality 2. CHF, Chronic, chronic heart failure with preserved EF, diastolic heart failure: Appears compensated, CXR requested, no ECHO noted in [facility], holding asa for OR, continue home BB, ARB, HCTZ regimen as well as statin. Echo findings as mentioned above 3. History Prior Noted Incidental RLL Nodule: 03/02/18 CT A/P w/ incidental 5 mm pleural-based nodule in the right lung base, likely fibrotic with recommendation at that time to follow-up outpatient. 4. Hypertension: Continue home BB, ARB, HCTZ, PRN hydralazine. 5. Hyperlipidemia: Continue home statin regimen. 6. Obesity: Weight loss and lifestyle changes encouraged. 7. BPH: Continue home flomax regimen. 8. Anxiety and Depression: Continue home effexor regimen. Hypothyroidism: TSH elevated 5.6. Free T4 0.75. Will start on low-dose of levothyroxine, 25 mcg daily. Repeat TFTs as an outpatient after 6 weeks 9. DVT Prophylaxis: SCDs, hold chemoprophylaxis given planned intervention. Need further PT and OT additional therapy and probably discharge tomorrow with home health physical therapy Clinical Impression(s) from Imaging Studies Ankle X-Ray 03/30/19 04:50 IMPRESSION: Left distal tibia and fibula fractures. Chest X-Ray 03/30/19 05:25 IMPRESSION: No acute cardiopulmonary abnormality. Laboratory Results 03/30/19 20:58: Hgb 11.8 L, Hct 35.0 L 03/31/19 04:40: WBC 5.6, RBC 3.35 L, Hgb 11.2 L, Hct 34.3 L, MCV 102.4 H, MCH 33.4 H, MCHC 32.7, RDW Std Deviation 51.1 H, RDW Coeff of [place] 13.4, Plt Count 200, MPV 9.3, Immature Gran % (Auto) 0.400, Neut % (Auto) 59.0, Lymph % (Auto) 22.8, [place] % (Auto) 13.3 H, Eos % (Auto) 3.8, Baso % (Auto) 0.7, Absolute Neuts (auto) 3.3, Absolute Lymphs (auto) 1.27, Nucleated RBC % 0 03/31/19 04:40: Sodium 139, Potassium 3.8, Chloride 105, Carbon Dioxide 27.0, Anion Gap 7, BUN 20 H, Creatinine 1.17, Estim Creat Clear Calc 50.22, Est GFR (MDRD) Af Amer 78, Est GFR (MDRD) Non-Af 64, BUN/Creatinine Ratio 17.1, Glucose 103, Calcium 8.2 L, Total Bilirubin 1.00, AST 91 H, ALT 123 H, Alkaline Phosphatase 60, Total Protein 6.7, Albumin 3.1 L, Globulin 3.6, Albumin/Globulin Ratio 0.9, Free T4 0.75 L Code Visit Inpatient E&M: 29693 Subs Hosp L2
[2019-03-31] MEDS: Ferrous Sulfate 325 MG Tablet PO (15:20)
[2019-03-31 20:00] VITALS: BP 139/75; PULSE 68; RESP 18; TEMP 37.4; O2SAT 95
[2019-03-31] MEDS: Atorvastatin Calcium 40 MG Tablet PO (21:19)
[2019-04-01] MEDS: Acetaminophen 325 MG Tablet 650 MG PO (05:50)
[2019-04-01] MEDS: Levothyroxine 25 MCG TABLET PO (05:50)
[2019-04-01 06:12] LABS: Absolute Lymphocyte Count 1.39 X10^3/uL (0.83-4.51); Absolute Neutrophil Count 3.4 X10^3/uL (2.0-7.7); Basophil# 0.02 X10^3/uL; Basophil% 0.4 % (0-1); Eosinophil# 0.19 X10^3/uL; Eosinophils% 3.3 % (0-5); Hematocrit 34.5 % (40-54); Hemoglobin 11.6 g/dL (13.0-16.5); Lymphocyte # 1.39 X10^3/ul (4.0); Lymphocyte % 24.3 % (19-41); Mean Corp Hgb Conc 33.6 g/dL (32-36); Mean Corpuscular Hgb 33.7 pg (27.0-32.0); Mean Corpuscular Volume 100.3 fL (80-94); Mean Platelet Vol. 9.4 fl (6.2-12.0); Monocyte# 0.71 X10^3/uL; Monocyte% 12.4 % (0-10); NRBC Flagged by Analyzer 0 % (0-5); Neutrophil # 3.39 X10^3/uL (2.7-7.7); Neutrophil % 59.4 % (47-70); Platelet Count 180 K/mm3 (150-450); RBC Distribution Width CV 13.3 % (11.6-14.6); RBC Distribution Width SD 48.5 fl (35.1-43.9); Red Blood Count 3.44 M/mm3 (4.6-6.2); White Blood Count 5.7 K/mm3 (4.4-11.0)
--- NOTE | 2019-04-01 09:30 | RAD_ITS ---
STUDY: X-RAY CHEST REASON FOR EXAM: Male, 78 years old. Mild fever, post op tib-fib. TECHNIQUE: AP COMPARISON: 03/30/2019 FINDINGS: The lungs are clear and expanded. There is no demonstrated pleural abnormality. Normal size heart. Normal mediastinum and elvie. Normal visualized pulmonary arteries. There is atherosclerotic calcification of the aortic arch with tortuosity. No acute bony process. There are degenerative changes of the shoulders. There is no demonstrated abnormality of the visualized soft tissue structures of the upper abdomen. RAD/Chest 1 View (Portable) IMPRESSION: Stable, nonacute portable x-ray examination of the chest. Electronically Signed: Jean Gusman MD (Brooks) at 19:38 EST , Service support ,
--- NOTE | 2019-04-01 09:38 | PCM.DC ---
- Discharge Diagnoses Current Active Problems: Current Active and Chronic Problems Closed fracture of distal end of left fibula and tibia (Acute) Fracture of left tibia and fibula (Acute) You will use the following diet at home:: Cardiac Your food should be the consistency of: Regular Discharge Activity: May Not Drive Weight Bearing Status: - - as recommended by PT. Home PT Keep extremity elevated above heart level: Left Leg Call your doctor if you observe: Fever of 101 or Higher, Coldness, Increased Pain, Numbness or Tingling, Inability to urinate, Inability to have a bowel movement, Shortness of breath, Dizziness, Fainting spells, Swelling in the ankles, Prolonged hiccoughing, Increased palpitations (irregular heartbeat), Calf discomfort, Uncontrolled pain Instructions: FRACTURE, Lower Extremity Allergies/Adverse Reactions: Allergies No Known Allergies Allergy (Verified 03/02/18 22:28) Medications to take at Discharge Atorvastatin Calcium [Lipitor] 40 mg PO QHS 01/21/18 Nebivolol HCl [Bystolic (Beta Wade)] 10 mg PO DAILY 01/21/18 Venlafaxine XR [Effexor Xr] 75 mg PO DAILY 01/21/18 Hydrochlorothiazide [Hctz] 25 mg PO DAILY 03/30/19 Telmisartan [Micardis] 40 mg PO DAILY 03/30/19 Polyethylene Glycol 3350 [Miralax] 17 gm PO DAILY PRN PRN packet 03/31/19 Senna/Docusate Sodium [Senokot-S] 2 tab PO BID PRN PRN #30 tab 03/31/19 Ferrous Sulfate 325 mg PO DAILY@1200 #30 tab 04/01/19 Tamsulosin HCl [Flomax] 0.4 mg PO DAILY@1700 #30 cap 04/01/19 The following prescriptions were given: Ferrous Sulfate 325 mg PO DAILY@1200 #30 tab Transmission Status: Received by [facility] Tamsulosin HCl [Flomax] 0.4 mg PO DAILY@1700 #30 cap Transmission Status: Received by [facility] Senna/Docusate Sodium [Senokot-S] 2 tab PO BID PRN PRN #30 tab PRN Reason: Constipation Transmission Status: Received by [facility] Primary Care Physician: Damir Yang DO [Primary Care Provider] - Duong Lucio MD [STAFF PHYSICIAN] - Test Results: Test results from this visit will be discussed in further detail at your follow-up appointment, if applicable. Please Follow Up With: Duong Lucio MD When: IN 1-2 WEEK Please Follow Up With: Mustapha Valverde MD When: CHR Urine retension/burning shin, POSSIBLE BPH
[2019-04-01 10:29] VITALS: BP 120/70; PULSE 72; RESP 16; TEMP 36.8; O2SAT 95
[2019-04-01] MEDS: Nebivolol HCl 10 MG Tablet PO (10:37)
[2019-04-01] MEDS: Ferrous Sulfate 325 MG Tablet PO (10:37)
[2019-04-01] MEDS: Venlafaxine XR 75 MG Capsule PO (10:37)
[2019-04-01] MEDS: Famotidine 20 MG Tablet PO (10:38)
[2019-04-01] MEDS: Polyethylene Glycol 3350 17 GM PACKET PO (10:38)
[2019-04-01] MEDS: hydroCHLOROthiazide 25 MG Tablet PO (10:38)
[2019-04-01] MEDS: Losartan Potassium 50 MG Tablet PO (10:38)
[2019-04-01] MEDS: Tamsulosin HCl 0.4 MG Capsule PO ×2 (12:20→13:09)
--- NOTE | 2019-04-01 13:41 | DS.PCM_ITS ---
Discharge Date and Diagnosis Date of Admission: 03/30/19 Date of Discharge: 04/01/19 - Primary Discharge Diagnosis Active and Suspected Problems Closed fracture of distal end of left fibula and tibia (Acute) Fracture of left tibia and fibula (Acute) - Secondary Discharge Diagnosis Chronic Problems Nephrolithiasis (Chronic) CHF (congestive heart failure) (Chronic) HTN (hypertension) (Chronic) HLD (hyperlipidemia) (Chronic) Obesity (BMI 30.0-34.9) (Chronic) Anxiety and depression (Chronic) Hospital Course and Treatment Imaging Results: 04/01/19 09:30 Chest 1 View (Portable) [RAD] Urgent Operations: - - Cystoscopy: Date of Procedure: 03/03/18 Pre-Operative Diagnosis: Left ureteral calculi with obstruction Post-Operative Diagnosis: Same Surgery/Procedure Performed:: Cystoscopy, balloon dilation of the left ureter, left ureteroscopy laser lithotripsy of stone. No stent Summary of Care Provided: [] The patient is a 77 y/o M WITH MULTIPLE COMORBIDITIES INCLUDING CHF Unclear type, HTN, HLD, Obesity who is admitted on [facility] floor through ER for fall on ice resulting into twisting of left ankle and, severe pain and fracture. 1. Mechanical Fall with Acute left distal tibia and fibula fracture: Plain x- ray film was reviewed and shows spiral left distal tibia fibula fracture. Left leg was splinted in ER. Orthopedic surgery consulted. Scheduled for surgery. Blood pressure and heart rate controlled. No hypoxia or tachypnea. Continue IV fluid, pain control, intake and output charting. Perioperative assessment: As per Galeano, perioperative cardiac risk:>4 METS, estimated risk of perioperative myocardial infarction or cardiac arrest low to moderate. NSQIP surgical risk calculator with risk for serious complication of 6.3% which is above average level. Troponin normal. TSH elevated 5.6. Check free T4. Chest x-ray independently reviewed. No acute cardiopulmonary abnormality. Left CP angle not clearly visualized probably positional. EKG normal sinus rhythm with frequent PVCs at 64 bpm. 2D echo reviewed. EF 65%. Trivial TR, RVSP 65 mm. Normal right and left atrium. No significant valvular abnormality 2. lOWER tract symptoms most probably chronic BPH with chronic retention of urine/bladder outlet obstruction: As per post void scan, is not significant and patient voided well after starting Flomax. Flomax started with 0.8 mg. UA is negative of hematuria, WBC 0 squamous epithelial cells 0-5 therefore good specimen. UTI ruled out. Prescription for Flomax 0.4 mg sent to patient's pharmacy. Follow-up with urologist Dr. Garibay in 2 weeks. As patient had low-grade fever the day before, chest x-ray was done which did not show acute change. 3. CHF, Chronic, chronic heart failure with preserved EF, diastolic heart failure: Appears compensated, CXR requested, no ECHO noted in [facility], holding asa for OR, continue home BB, ARB, HCTZ regimen as well as statin. Echo f indings as mentioned above 4. History Prior Noted Incidental RLL Nodule: 03/02/18 CT A/P w/ incidental 5 mm pleural-based nodule in the right lung base, likely fibrotic with recommendation at that time to follow-up outpatient. 5. Hypertension: Continue home BB, ARB, HCTZ, PRN hydralazine. 6. Hyperlipidemia: Continue home statin regimen. 7 obesity: Weight loss and lifestyle changes encouraged. 7. BPH: Continue home flomax regimen. . Anxiety and Depression: Continue home effexor regimen. Hypothyroidism: TSH elevated 5.6. Free T4 0.75. Will start on low-dose of levothyroxine, 25 mcg daily. Repeat TFTs as an outpatient after 6 weeks 9. DVT Prophylaxis: SCDs, hold chemoprophylaxis given planned intervention. Discharge medication reconciliation done. Discharge follow-up instructions completed. Discharge process discussed with the patient and all questions were answered to patient's satisfaction. Prescription for Flomax, ferrous sulfate, MiraLAX and senna sent to patient's pharmacy. Total time spent, exact 35 minutes on discharge meds reconciliation, examination, coordination of care with nurses and ancillary staff, review of imaging and blood test and discussion with the patient on follow-up instructions Subjective: Patient complain of chronic urinary retention with incomplete emptying of bladder, hesitation, increased nocturia and slight burning micturition for long time probably more than a year. Denies fever or chills. Patient was noted to have T-max 100.2 on 03/31. Patient never followed urologist or addressed by PCP UA, urine culture, bladder scan ordered. Patient started on Flomax. Objective: General: Alert, Oriented x3, Cooperative HEENT: Atraumatic, PERRLA, EOMI, Normocephalic Neck: Supple, No JVD, Negative Carotid Bruits Lungs: Clear to auscultation, No rhonchi, No wheeze, No rales, Diminished Cardiovascular: Regular rate, Regular Rhythm, Normal S1, Normal S2, No murmurs Abdomen: Bowel Sounds Present, Soft, Non Tender, Non-Distended : Bladder scan showed 275 and patient voluntarily voided. Post void residual 167 mL. UA reviewed. No suprapubic or renal angle tenderness. Extremities: No edema, Capillary Refill Less than 3 Seconds Skin: No rashes, No breakdown Musculoskeletal: Arthritic Changes, Tenderness - Tenderness over operative region, left leg status post ORIF Neurological: Cranial nerves II-XII grossly intact, Deep Tendon Reflexes 2+/4 and Symmetrical, Neuro grossly intact Psych/Mental Status: Normal Affect, Appropriate - Physical Exam Vitals/I&O's: Vital Signs Temp Pulse Resp BP Pulse Ox 99.3 F H 68 18 139/75 H 95 03/31/19 20:00 03/31/19 20:00 03/31/19 20:00 03/31/19 20:00 03/31/19 20:00 Oxygen Flow Rate (L/min) 2 Oxygen Delivery Method Room Air Weight: 195 lb Body Mass Index (BMI) 30.5 Finger Stick Blood Glucose 99 Intake and Output for Last 24 Hours 03/30/19 03/31/19 04/01/19 23:59 23:59 23:59 Intake Total 2280.42 / 2980.42 3210.00 / 3210.00 Output Total 150 / 575 1500 / 1500 500 / 500 Balance 2130.42 / 2405.42 1710.00 / 1710.00 -500 / -500 Laboratory Results 04/01/19 05:24: WBC 5.7, RBC 3.44 L, Hgb 11.6 L, Hct 34.5 L, MCV 100.3 H, MCH 33.7 H, MCHC 33.6, RDW Std Deviation 48.5 H, RDW Coeff of [place] 13.3, Plt Count 180, MPV 9.4, Immature Gran % (Auto) 0.200, Neut % (Auto) 59.4, Lymph % (Auto) 24.3, [place] % (Auto) 12.4 H, Eos % (Auto) 3.3, Baso % (Auto) 0.4, Absolute Neuts (auto) 3.4, Absolute Lymphs (auto) 1.39, Nucleated RBC % 0 Current Medications Acetaminophen (Tylenol) 650 mg PO Q6H PRN PRN PRN Reason: Pain Score 1-10/Temp > 100.7 F Last Admin: 04/01/19 05:50 Dose: 650 mg Documented by: Al Hydroxide/Mg Hydroxide (Mylanta Ii) 30 ml PO Q6H PRN PRN PRN Reason: Gastric Burning Albuterol Sulfate (Ventolin Aerosols) 2.5 mg INHALATION Q2H PRN PRN PRN Reason: Shortness of Breath/Wheezing Atorvastatin Calcium (Lipitor) 40 mg PO QHS [facility] Last Admin: 03/31/19 21:19 Dose: 40 mg Documented by: Famotidine (Pepcid) 20 mg PO BID [facility] Last Admin: 03/31/19 21:18 Dose: 20 mg Documented by: Ferrous Sulfate (Ferrous Sulfate) 325 mg PO DAILY@1200 [facility] Last Admin: 03/31/19 15:20 Dose: 325 mg Documented by: Glucagon () 1 mg IM .X1 PRN PRN Reason: Hypoglycemia Guaifenesin (Robitussin) 20 ml PO Q4H PRN PRN PRN Reason: COUGH Hydralazine HCl (Apresoline Iv) 10 mg IV Q4H PRN PRN PRN Reason: SBPO > 160 Hydrochlorothiazide (Hctz) 25 mg PO DAILY [facility] Last Admin: 03/31/19 08:52 Dose: 25 mg Documented by: Sodium Chloride () 250 mls @ 15 mls/hr IV .[id number] PRN PRN Reason: Saline Flush Sodium Chloride () 250 mls @ 15 mls/hr IV .[id number] PRN PRN Reason: Additional IVPB Infusion Dextrose (Dextrose 10%-Water) 250 mls @ 999 mls/hr IV .Q16M PRN; Protocol PRN Reason: HYPOGLYCEMIA Levothyroxine Sodium (Synthroid) 25 mcg PO DAILY@0600 [facility] Last Admin: 04/01/19 05:50 Dose: 25 mcg Documented by: Losartan Potassium (Cozaar) 50 mg PO DAILY [facility] Last Admin: 03/31/19 08:52 Dose: 50 mg Documented by: Magnesium Hydroxide (Milk Of Magnesia) 30 ml PO DAILY PRN PRN PRN Reason: Constipation Melatonin (Melatonin) 3 mg PO QHS PRN PRN PRN Reason: INSOMNIA Morphine Sulfate () 4 mg IV Q3H PRN PRN PRN Reason: Pain Score 6-10/10 Last Admin: 03/31/19 03:03 Dose: 4 mg Documented by: Nebivolol (Bystolic) 10 mg PO DAILY [facility] Last Admin: 03/31/19 08:51 Dose: 10 mg Documented by: Ondansetron HCl (Zofran) 4 mg IV Q8H PRN PRN PRN Reason: NAUSEA/VOMITING Oxycodone HCl (Oxyir) 5 mg PO Q4H PRN PRN PRN Reason: Pain Score 4-5/10 Last Admin: 03/31/19 20:01 Dose: 5 mg Documented by: Polyethylene Glycol (Miralax) 17 gm PO DAILY [facility] Last Admin: 03/31/19 12:51 Dose: 17 gm Documented by: Prochlorperazine Edisylate (Compazine Iv) 5 mg IV Q4H PRN PRN PRN Reason: Breakthrough nausea/vomiting Psyllium Hydrophilic Mucilloid (Metamucil) 1 packet PO DAILY PRN PRN PRN Reason: Constipation Senna/Docusate Sodium (Senokot-S, Shanelle-Colace) 2 tablet PO BID PRN PRN PRN Reason: Constipation Sodium Chloride () 10 - 40 ml IV UD PRN PRN Reason: SALINE FLUSH Tamsulosin HCl (Flomax) 0.4 mg PO DAILY [facility] Throat Lozenges (Cepacol Sore Throat Lozenge) 1 lozenge MUCOUS MEM Q2H PRN PRN PRN Reason: SORE THROAT Venlafaxine HCl (Effexor Xr) 75 mg PO DAILY [facility] Last Admin: 03/31/19 08:51 Dose: 75 mg Documented by: Discharge Activity: May Not Drive Weight Bearing Status: - - as recommended by PT. Home PT Keep extremity elevated above heart level: Left Leg Call your doctor if you observe: Fever of 101 or Higher, Coldness, Increased Pain, Numbness or Tingling, Inability to urinate, Inability to have a bowel movement, Shortness of breath, Dizziness, Fainting spells, Swelling in the ankles, Prolonged hiccoughing, Increased palpitations (irregular heartbeat), Calf discomfort, Uncontrolled pain Home Medications: Medications to take at Discharge Atorvastatin Calcium [Lipitor] 40 mg PO QHS 01/21/18 Nebivolol HCl [Bystolic (Beta Wade)] 10 mg PO DAILY 01/21/18 Venlafaxine XR [Effexor Xr] 75 mg PO DAILY 01/21/18 Hydrochlorothiazide [Hctz] 25 mg PO DAILY 03/30/19 Telmisartan [Micardis] 40 mg PO DAILY 03/30/19 Polyethylene Glycol 3350 [Miralax] 17 gm PO DAILY PRN PRN packet 03/31/19 Senna/Docusate Sodium [Senokot-S] 2 tab PO BID PRN PRN #30 tab 03/31/19 Ferrous Sulfate 325 mg PO DAILY@1200 #30 tab 04/01/19 Tamsulosin HCl [Flomax] 0.4 mg PO DAILY@1700 #30 cap 04/01/19 Following Prescrptions Were Given to Patient: Ferrous Sulfate 325 mg PO DAILY@1200 #30 tab Transmission Status: Received by [facility] Tamsulosin HCl [Flomax] 0.4 mg PO DAILY@1700 #30 cap Transmission Status: Received by [facility] Senna/Docusate Sodium [Senokot-S] 2 tab PO BID PRN PRN #30 tab PRN Reason: Constipation Transmission Status: Received by [facility] Primary Care Physician: Damir Yang DO [Primary Care Provider] - Duong Lucio MD [STAFF PHYSICIAN] - Please Follow Up With: Duong Lucio MD When: IN 1-2 WEEK Please Follow Up With: Mustapha Valverde MD When: CHR Urine retension/burning shin, POSSIBLE BPH Patient Instructions: FRACTURE, Lower Extremity Medical Necessity - Tobacco Use Smoking Status: Never smoker Tobacco Use: Non-smoker Meaningful Use Info Meaningful Use Diagnoses (Choose all that apply): None applicable Code Visit Inpatient E&M: 83711 Disch Hosp
[2019-04-01 15:05] LABS: Bacteria 0 SEEN /hpf (None Seen); Mucous, Urine 0 SEEN /hpf (<or=2+); Red Blood Cells-Urine 0 SEEN /hpf (0-5); White Blood Cells 0 SEEN /hpf (0-5)
[2019-04-01 15:46] LABS: Color, Urine Yellow (Yellow); Glucose, Dipstick Normal (Normal); Ketone-Dipstick Negative (Negative); Leukocyte Esterase-Dipstick Negative /ul (Negative); Nitrite-Dipstick Negative (Negative); Occult Blood-Urine Negative /ul (Negative); Protein-Dipstick Negative (Negative); Specific Gravity, Urine 1.015 (1.002-1.030); Urine Bilirubin Dipstick Negative (Negative); Urine Clarity Clear (Clear); Urine Urobilinogen Normal (Normal); Urine pH 6.5 (5.0 - 8.0)
[2019-04-01 16:08] LABS: Squamous Epithelial Cells - UA 0-5 SEEN /hpf (0-5)
[2019-04-01 16:57] VITALS: BP 98/60; PULSE 78; RESP 16; TEMP 37.3; O2SAT 95
--- NOTE | 2019-04-02 13:45 | CASEMGMT ---
ELBERT CM Discharge Follow-Up Phone Call. Lace: 10 Strata: 3 Discharge Date: 04/01/19 Adm Dx:Fall, LLE Tib/Fib Fx. Attempted discharge follow-up phone call. No answer. Message left for pt to return call if he has any questions/needs. Phone number provided. Susie SCHILLING RN CM
== END 2019-04-01 18:32 | disposition home or self-care (01) | DRG 493 ==
LOC: ED 04:47 → MS3 05:36
PROVIDERS: Orthopaedic Surgery; Admitting Provider Family Medicine; Emergency Provider Emergency Medicine; PCP Family Medicine; Visit Provider Internal Medicine
PROC: 0QSH06Z Reposition Left Tibia with Intramedullary Internal Fixation Device, Open Approach (ICD-10-PCS; principal; 2019-03-30 13:40)
DX: S82.232A Displaced oblique fracture of shaft of left tibia, initial encounter for closed fracture (principal); I50.30 Unspecified diastolic (congestive) heart failure; N13.8 Other obstructive and reflux uropathy; S82.432A Displaced oblique fracture of shaft of left fibula, initial encounter for closed fracture; W00.0XXA Fall on same level due to ice and snow, initial encounter; E78.5 Hyperlipidemia, unspecified; I11.0 Hypertensive heart disease with heart failure; E66.9 Obesity, unspecified; Z68.30 Body mass index [BMI] 30.0-30.9, adult; F32.9 Major depressive disorder, single episode, unspecified; F41.9 Anxiety disorder, unspecified; N40.1 Benign prostatic hyperplasia with lower urinary tract symptoms; R91.1 Solitary pulmonary nodule; E03.9 Hypothyroidism, unspecified
CPT/HCPCS: 36415; 71045; 73590; 73610; 76000; 80053; 81001; 83735; 84439; 84443; 84484; 85014; 85018; 85025; 85610; 85730; 86850; 86870; 86900; 86901; 87086; 93005; 93306; 97110; 97116; 97162; 97166; 97530; 97535; 99251; 99285; C1713; J7030; J7120; Q9957; A4216; C8929; G0463

== ENCOUNTER → 2023-10-28 | Outpatient (CLI) | payer OTHER, SELFPAY ==
[2023-10-28 10:16] LABS: Hematocrit 39.2 % (40-54); Hemoglobin 13.3 g/dL (13.0-16.5); Mean Corp Hgb Conc 33.9 g/dL (32-36); Mean Corpuscular Hgb 34.4 pg (27.0-32.0); Mean Corpuscular Volume 101.3 fL (80-94); Mean Platelet Vol. 8.5 fl (6.2-12.0); Platelet Count 215 K/mm3 (150-450); RBC Distribution Width CV 13.4 % (11.6-14.6); RBC Distribution Width SD 49.5 fl (35.1-43.9); Red Blood Count 3.87 M/mm3 (4.6-6.2)
[2023-10-28 10:45] LABS: Anion Gap 6 (5-15); BUN 21 mg/dL (7-18); BUN/Creat Ratio 22.1 RATIO (10-20); Calcium,Total 9.7 mg/dL (8.5-10.1); Chloride 105 mmol/L (98-107); Creatinine, Serum 0.95 mg/dL (0.70-1.30); EST Glomerular Filtration Rate 81 mL/min (>60); Est Glom Filt Rate - Afr Amer 98 mL/min (>60); Glucose 96 mg/dL (74-106); PSA,Total - Annual Screen 2.63 ng/mL (0.00-4.00); Potassium 3.8 mmol/L (3.5-5.1); Sodium Level 138 mmol/L (136-145)
== END | disposition home or self-care (01) ==
PROVIDERS: PCP Family Medicine; Referring Provider Urology; Visit Provider Urology
DX: Z01.812 Encounter for preprocedural laboratory examination (principal); Z12.5 Encounter for screening for malignant neoplasm of prostate
CPT/HCPCS: 36415; 80048; 84153; 85027; G0103

== ENCOUNTER → 2023-12-02 | Outpatient (CLI) | payer OTHER, SELFPAY ==
--- NOTE | 2023-11-29 | IMM_PTH ---
PATIENT: MOUNA MOORE LOC: [facility] U#:[id number] AGE/SX: 83/M ROOM: RE12/02/[address]: Dr. Mustapha Valverde MD : 1940 BED: DIS: 12/02/2023 SPEC #: [id number] RECD: 12/04/23 11:46 STATUS: SOUMechelle REQ #: [id number] ISAIAH: 11/29/23 00:[address]: Mustapha Valverde DEPT: IMMUNOHISTOCHEMISTRY RECD BY: Yonathan Rendon ENTERED: 12/04/23 11:47 SP TYPE: IMMUNO OTHR DR: Dr. Damir Yang, DO Tissues: Scrotum, NOS Procedures: BCL-2 (add) CD31 (add) CEA (add) SILVIA (add) FACTOR VIII (add) S-100 (add) CD10 (initial) PHYSICIAN & INSTITUTION [place] [phone] SPECIMEN INFORMATION: Tissue Source: Scrotal mass Clinical Info: Benign prostatic hyperplasia with lower urinary tract symptoms, phimosis, condyloma latum Specimen Number: [id number] CPT code: 02389,06376e9 METHODOLOGY: Deparaffinized sections of prefer/formalin-fixed tissue or PAP/DQ stained slides are incubated with monoclonal/polyclonal antibodies/oligonucleotide probes. Localization is made via biotin free immunoperoxidase method. Appropriate controls are performed and reacted as expected. Results on target cell population are indicated in the following table: RESULTS: ANTIBODY / CLONE RESULT Block #10 CD10 (56C6) positive, focal BCL-2 (bcl-2/100/D5) negative CD31 (LENNOX/70A) negative Factor VIII (R Ag) negative S-100 (4C4.9) negative SILVIA (E29) positive, focal CEA (11-7/TF-3HB-1) positive, focal These tests were developed and their performance characteristics determined by [facility]. They may not have been cleared or approved by the [place]. Food and Drug Administration. The FDA has determined that such clearance or approval is not necessary. The above immunohistochemical/dualISH markers are ordered and reviewed by the Pathologist. INTERPRETATION: Scrotal mass, excision: Consistent with basosquamous cell carcinoma. Case has been reviewed in consultation with Dr. Salas who concurs with the above diagnosis. IDC:DRAGAN Vizcaino 12/05/2023
--- NOTE | 2023-11-29 08:00 | MASS_PTH ---
PATIENT: MOUNA MOORE LOC: [facility] U#:[id number] AGE/SX: 83/M ROOM: RE12/02/[address]: Dr. Mustapha Valverde MD : 1940 BED: DIS: 12/02/2023 SPEC #: [id number] RECD: 12/02/23 15:13 STATUS: MARY ANNE REÁngel #: [id number] ISAIAH: 11/29/23 08:[address]: Mustapha Valverde DEPT: SURGICAL PATHOLOGY RECD BY: Valerie Acosta ENTERED: 12/03/23 09:44 SP TYPE: Mass OTHR DR: Dr. Damir Yang, DO Tissues: Scrotum, NOS Procedures: Surgery Specimen Level IV HEADER OPERATION: Circumcision, excision of scrotal mass PRE-OP DIAGNOSIS: Benign prostatic hyperplasia with lower urinary tract symptoms, phimosis, condyloma latum TISSUE SUBMITTED: Scrotal mass MICROSCOPIC DIAGNOSIS Skin lesion of scrotum, excision: Basosquamous cell carcinoma, superficial, nodular and focally ulcerated. See comment. 12/04/2023 COMMENT The lesion is completely excised in the planes examined, focally extending to less than I.0mm of one peripheral margin. The squamous component of the tumor comprises approximately 5.0% of the total tumor and is located at 6.0mm for the closest peripheral margin. There is no evidence of angiolymphatic invasion or perineural invasion. Immunohistochemistry ([id number]) supports the diagnosis. Clinical correlation is suggested. Case has been reviewed in consultation with Dr. Salas who concurs with the above diagnosis. IDC:SJ MICROSCOPIC DESCRIPTION Slides are reviewed. GROSS DESCRIPTION Received in fixative is one container labeled with the patient's name and designated Scrotal mass. The specimen consists of a piece of skin with underlying tissue measuring 5.0 x 3.5 x 1.0cm. There is a rouse-white slightly raised lesion on the surface measuring 3.7 x 3.0 x 0.7cm. Also present in the container is a detached piece of rouse-white skin measuring 0.7 x 0.3 x 0.2cm. The entire specimen is submitted in ten cassettes. Cassette 1 contains tips of the skin ellipse and detached piece of rouse-white skin. SJFridamr 12/03/2023 TC:0 CPT:20760
== END | disposition home or self-care (01) ==
PROVIDERS: PCP Family Medicine; Referring Provider Urology; Visit Provider Urology
DX: N40.1 Benign prostatic hyperplasia with lower urinary tract symptoms (principal); N47.1 Phimosis; A51.31 Condyloma latum
CPT/HCPCS: 88305; 88341; 88342

== ENCOUNTER 2023-12-05 19:03 | Emergency (ER) | payer OTHER, SELFPAY ==
[2023-12-05 19:04] VITALS: BP 124/75; PULSE 107; RESP 18; TEMP 36.7; O2SAT 95; BMI 32.1
--- OUTSIDE RECORDS SUMMARY | 2023-12-05 21:56 | XMS RPT_ITS | CCD ---
Author Organization [facility] Care Team Providers Care Teacher Of [employer] Emotionally Dist[employer] Name Role Phone VICKI GOVEA DO Primary Care Physician SALLIE AGUILAR Attending Unavailab VICKI [place] DO Primary Care Unavailable LIZA CORDERO MD Attending Unavailable VICKI GOVEA DO Primary Care Unavailable SALLIE AGUILAR Attending Unavailab VICKI [place] DO Primary Care Unavailable SALLIE AGUILAR Attending Unavailab VICKI [place] DO Primary Care Unavailable SALLIE AGUILAR Attending Unavailab VICKI [place] DO Primary Care Unavailable Medications Current Medications Medication Drug Class(es) Dates Sig (Normalized) Sig (Original) allopurinol 100 mg oral tablet (4 sources) Xanthine Oxidase Inhibitor Start: 10-11-19 allopurinol 100 mg oral tablet Dose : 100 mg = 1 tab(s), Oral, qDay, 0 Refill(s) Start Date: 10/10/21 Status: Ordered aspirin 81 mg delayed release oral tablet (1 source) Platelet Aggregation Inhibitor, Nonsteroidal Anti-inflammatory Drug Start: 04-24-19 aspirin 81 mg oral delayed release tablet Dose : 81 mg = 1 tab(s), Oral, Daily, # 90 tab(s), 6 Refill(s), Pharmacy: [facility], 170.2, cm, 04/24/23 9:21:00 EDT, Height, kg, 04/24/23 9:21:00 EDT, Dosing Weight Start Date: 04/24/23 Status: Ordered atorvastatin 40 mg oral tablet (6 sources) HMG-CoA Reductase Inhibitor Start: 09-12-19 atorvastatin 40 mg oral tablet Dose : 40 mg = 1 tab(s), Oral, qDay, # 30 tab(s), 0 Refill(s) Start Date: 09/11/21 Status: Ordered carvedilol 12.5 mg oral tablet (1 source) alpha-Adrenergic Wade, beta-Adrenergic Wade Start: 04-10-19 carvedilol 12.5 mg oral tablet Dose : 12.5 mg = 1 tab(s), Oral, BID, # 60 tab(s), 3 Refill(s), Pharmacy: [facility], 170.2, cm, 04/10/23 10:44:00 EST, Height, kg, 04/10/23 10:44:00 EST, Dosing Weight Start Date: 04/10/23 Status: Ordered ferrous sulfate 140 mg extended release oral tablet (3 sources) Start: 07-26-19 ferrous sulfate (as elemental iron) 45 mg oral tablet, extended release Dose : 45 mg = 1 tab(s), Oral, BID, # 30 tab(s), 0 Refill(s) Start Date: 07/25/22 Status: Ordered hydroCHLOROthiazide 25 mg oral tablet (2 sources) Thiazide Diuretic Start: 09-12-19 hydroCHLOROthiazide 25 mg oral tablet Dose : 25 mg = 1 tab(s), Oral, qDay, # 30 tab(s), 0 Refill(s) Start Date: 09/11/21 Status: Ordered nebivolol 20 mg oral tablet (3 sources) Start: 07-26-19 Bystolic 20 mg oral tablet Dose : 20 mg = 1 tab(s), Oral, BID, # 60 tab(s), 0 Refill(s) Start Date: 07/25/22 Status: Ordered telmisartan 40 mg oral tablet (6 sources) Angiotensin 2 Receptor Wade Start: 09-12-19 telmisartan 40 mg oral tablet Dose : 40 mg = 1 tab(s), Oral, qDay, # 30 tab(s), 0 Refill(s) Start Date: 09/11/21 Status: Ordered ticagrelor 90 mg oral tablet (1 source) Start: 04-24-19 Brilinta (ticagrelor) 90 mg oral tablet Dose : 90 mg = 1 tab(s), Oral, BID, # 180 tab(s), 6 Refill(s), Pharmacy: [facility], 170.2, cm, 04/24/23 9:21:00 EDT, Height, kg, 04/24/23 9:21:00 EDT, Dosing Weight Start Date: 04/24/23 Status: Ordered torsemide 20 mg oral tablet (4 sources) Loop Diuretic Start: 07-26-19 torsemide 20 mg oral tablet Dose : 20 mg = 1 tab(s), Oral, Daily, # 30 tab(s), 5 Refill(s), Pharmacy: [facility], 170.2, cm, 07/25/22 9:43:00 EDT, Height Start Date: 07/25/22 Status: Ordered venlafaxine 75 mg oral tablet (4 sources) Serotonin and Norepinephrine Reuptake Inhibitor Start: 07-26-19 take 3 tablets by mouth once daily in the morning venlafaxine 75 mg oral tablet TAKE 3 TABLETS BY MOUTH ONCE DAILY IN THE MORNING Start Date: 07/25/22 Status: Ordered Completed/Discontinued Medications Medication Drug Class(es) Dates Sig (Normalized) Sig (Original) tamsulosin hydrochloride 0.4 mg oral capsule (5 sources) alpha-Adrenergic Wade Start: 06-24-2013 End: 06-27-2013 Flomax 0.4 mg oral capsule Dose : 0.4 mg = 1 cap(s), Oral, qDayPC, # 3 cap(s), 0 Refill(s) Start Date: 06/24/13 Stop Date: 06/27/13 Status: Ordered Problems Problem Classification Problem Date Documented Da te Episodic/Chronic Bacterial infection; unspecified site (6 sources) Rheumatic fever 09-11-2021 Episodic Cardiac dysrhythmias (1 source) Cardiac arrhythmia; Translations: [Other specified cardiac arrhythmias] Chronic Conduction disorders (4 sources) Ventricular bigeminy 07-25-2022 Chronic Essential hypertension (7 sources) Hypertensive disorder; Translations: [Essential hypertension] 06-24-2013 Chronic Heart valve disorders (5 sources) Aortic stenosis, non-rheumatic ; Translations: [Nonrheumatic aortic (valve) stenosis] Chronic Other lower respiratory disease (5 sources) Dyspnea; Translations: [Shortness of breath] Episodic Results Test Name Value Interpretation Reference Range Facility .Auto Diffon 04-22-2023 Basophil, Absolute 0.0 10 3/mcL Normal 0.0-0.2 [facility] ([place]) Comment on above: Performed By: #### A DIFF, BMP, CBC, GFR, MORPH, ANEU, PRO #### [address] [address] Basophils/100 WBC (Bld) 0.7 % Normal 0.0-2.5 [facility] ([place]) Comment on above: Performed By: #### A DIFF, BMP, CBC, GFR, MORPH, ANEU, PRO #### [address] [address] Eosinophil, Absolute 0.3 10 3/mcL Normal 0.0-0.4 [facility] ([place]) Comment on above: Performed By: #### A DIFF, BMP, CBC, GFR, MORPH, ANEU, PRO #### [address] [address] Eosinophils/100 WBC (Bld) 4.2 % Normal 0.0-7.0 [facility] ([place]) Comment on above: Performed By: #### A DIFF, BMP, CBC, GFR, MORPH, ANEU, PRO #### [address] [address] Lymphocyte, Absolute 1.6 10 3/mcL Normal 0.8-3.9 [facility] ([place]) Comment on above: Performed By: #### A DIFF, BMP, CBC, GFR, MORPH, ANEU, PRO #### [address] [address] Lymphocytes/100 WBC (Bld) 25.9 % Normal 10.0-50.0 [facility] ([place]) Comment on above: Performed By: #### A DIFF, BMP, CBC, GFR, MORPH, ANEU, PRO #### [address] [address] Monocyte, Absolute 0.5 10 3/mcL Normal 0.2-1.0 [facility] ([place]) Comment on above: Performed By: #### A DIFF, BMP, CBC, GFR, MORPH, ANEU, PRO #### [address] [address] Monocytes/100 WBC (Bld) 8.8 % Normal 1.7-13.0 [facility] ([place]) Comment on above: Performed By: #### A DIFF, BMP, CBC, GFR, MORPH, ANEU, PRO #### [address] [address] Neutrophils/100 WBC (Bld) 60.4 % Normal 37.0-80.0 [facility] ([place]) Comment on above: Performed By: #### A DIFF, BMP, CBC, GFR, MORPH, ANEU, PRO #### [address] [address] .GFRon 04-22-2023 GFR 111 ml/min/1.73sqm Normal [facility] ([place]) Comment on above: Result Comment: GFR Population mean for , Non- Americans Ages 20-29 = 116 mL/min/1.73 sq.m. Ages 30-39 = 107 mL/min/1.73 sq.m. Ages 40-49 = 99 mL/min/1.73 sq.m. Ages 50-59 = 93 mL/min/1.73 sq.m. Ages 60-69 = 85 mL/min/1.73 sq.m. Ages 70+ = 75 mL/min/1.73 sq.m. Chronic Kidney Disease: Less than 60 mL/min/1.73 square meters End Stage Renal Disease: Less than 15 mL/min/1.73 square meters Performed By: #### A DIFF, BMP, CBC, GFR, MORPH, ANEU, PRO #### [address] [address] GFR Non- 92 ml/min/1.73sqm Normal [facility] ([place]) Comment on above: Result Comment: GFR Population mean for , Non- Americans Ages 20-29 = 116 mL/min/1.73 sq.m. Ages 30-39 = 107 mL/min/1.73 sq.m. Ages 40-49 = 99 mL/min/1.73 sq.m. Ages 50-59 = 93 mL/min/1.73 sq.m. Ages 60-69 = 85 mL/min/1.73 sq.m. Ages 70+ = 75 mL/min/1.73 sq.m. Chronic Kidney Disease: Less than 60 mL/min/1.73 square meters End Stage Renal Disease: Less than 15 mL/min/1.73 square meters Performed By: #### A DIFF, BMP, CBC, GFR, MORPH, ANEU, PRO #### [address] [address] .Morphon 04-22-2023 Platelet Estimate Normal Normal [facility]) Comment on above: Performed By: #### A DIFF, BMP, CBC, GFR, MORPH, ANEU, PRO #### [address] [address] .NEUABSon 04-22-2023 Neutrophil, Absolute 3.7 10 3/mcL Normal 2.9-6.2 [facility]) Comment on above: Performed By: #### A DIFF, BMP, CBC, GFR, MORPH, ANEU, PRO #### [address] [address] BMPon 04-22-2023 BUN/Creatinine Ratio 15 ratio Normal 7-27 [facility]) Comment on above: Performed By: #### A DIFF, BMP, CBC, GFR, MORPH, ANEU, PRO #### [address] [address] Calcium [Mass/Vol] 8.9 mg/dL Normal 8.4-10.2 [facility]) Comment on above: Performed By: #### A DIFF, BMP, CBC, GFR, MORPH, ANEU, PRO #### [address] [address] Chloride [Moles/Vol] 104 mmol/L Normal 98-107 [facility] ([place]) Comment on above: Performed By: #### A DIFF, BMP, CBC, GFR, MORPH, ANEU, PRO #### [address] [address] CO2 [Moles/Vol] 30 mmol/L Normal 23-31 [facility] ([place]) Comment on above: Performed By: #### A DIFF, BMP, CBC, GFR, MORPH, ANEU, PRO #### [address] [address] Creatinine [Mass/Vol] 0.81 mg/dL Normal 0.70-1.30 [facility] ([place]) Comment on above: Performed By: #### A DIFF, BMP, CBC, GFR, MORPH, ANEU, PRO #### [address] [address] Electrolyte Balance 7.0 mEq/L Normal 4.0-15.0 [facility] ([place]) Comment on above: Performed By: #### A DIFF, BMP, CBC, GFR, MORPH, ANEU, PRO #### [address] [address] Glucose [Mass/Vol] 85 mg/dL Normal 83-110 [facility] ([place]) Comment on above: Performed By: #### A DIFF, BMP, CBC, GFR, MORPH, ANEU, PRO #### [address] [address] Potassium [Moles/Vol] 4.9 mmol/L Normal 3.5-5.1 [facility] ([place]) Comment on above: Performed By: #### A DIFF, BMP, CBC, GFR, MORPH, ANEU, PRO #### [address] [address] Sodium [Moles/Vol] 141 mmol/L Normal 136-145 [facility] ([place]) Comment on above: Performed By: #### A DIFF, BMP, CBC, GFR, MORPH, ANEU, PRO #### [address] [address] Urea nitrogen [Mass/Vol] 12 mg/dL Normal 7-18 [facility] ([place]) Comment on above: Performed By: #### A DIFF, BMP, CBC, GFR, MORPH, ANEU, PRO #### [address] [address] CBCon 04-22-2023 Erythrocyte distribution width (RBC) [Ratio] 14.3 % Normal 11.5-14.5 [facility] ([place]) Comment on above: Performed By: #### A DIFF, BMP, CBC, GFR, MORPH, ANEU, PRO #### [address] [address] Hematocrit (Bld) [Volume fraction] 40.5 % Low 42.0-52.0 [facility] ([place]) Comment on above: Performed By: #### A DIFF, BMP, CBC, GFR, MORPH, ANEU, PRO #### [address] [address] Hgb 14.1 G/dL Normal 14.0-18.0 [facility] ([place]) Comment on above: Performed By: #### A DIFF, BMP, CBC, GFR, MORPH, ANEU, PRO #### [place] [address] MCH (RBC) [Entitic mass] 35.1 pg High 27.0-31.2 [facility] ([place]) Comment on above: Performed By: #### A DIFF, BMP, CBC, GFR, MORPH, ANEU, PRO #### [place] [address] MCHC 34.9 G/dL Normal 31.8-35.4 [facility] ([place]) Comment on above: Performed By: #### A DIFF, BMP, CBC, GFR, MORPH, ANEU, PRO #### [address] [address] MCV (RBC) [Entitic vol] 100.4 fL High 80.0-94.0 [facility] ([place]) Comment on above: Performed By: #### A DIFF, BMP, CBC, GFR, MORPH, ANEU, PRO #### [address] [address] Platelet 249 10 3/mcL Normal 130-400 [facility] ([place]) Comment on above: Performed By: #### A DIFF, BMP, CBC, GFR, MORPH, ANEU, PRO #### [place] [id number] Platelet mean volume (Bld) [Entitic vol] 7.1 fL Low 7.4-10.4 [facility] ([place]) Comment on above: Performed By: #### A DIFF, BMP, CBC, GFR, MORPH, ANEU, PRO #### [address] [address] RBC 4.03 10 6/mcL Low 4.04-6.13 [facility] ([place]) Comment on above: Performed By: #### A DIFF, BMP, CBC, GFR, MORPH, ANEU, PRO #### [address] [address] WBC 6.1 10 3/mcL Normal 4.6-10.8 [facility] ([place]) Comment on above: Performed By: #### A DIFF, BMP, CBC, GFR, MORPH, ANEU, PRO #### [address] [address] PROon 04-22-2023 PT Coag (PPP) [Time] 12.3 s Normal 9.0-14.2 [facility] ([place]) Comment on above: Performed By: #### A DIFF, BMP, CBC, GFR, MORPH, ANEU, PRO #### [address] [address] PT International Ratio 1.1 Normal [facility] ([place]) Comment on above: Result Comment: The [employer] (CHEST, 1992, 102:312S-25S) recommended therapeutic range for oral anticoagulant therapy is: LOW RISK: Prophylaxis of venous thrombosis INR: 2.0-3.0 Treatment of pulmonary embolism 2.0-3.0 Prevention of systemic embolism 2.0-3.0 HIGH RISK: Mechanical prosthetic valves 2.5-3.5 Performed By: #### A DIFF, BMP, CBC, GFR, MORPH, ANEU, PRO #### [address] [address] .GFRon 07-25-2022 GFR 92 ml/min/1.73sqm Normal [facility] ([place]) Comment on above: Result Comment: GFR Population mean for , Non- Americans Ages 20-29 = 116 mL/min/1.73 sq.m. Ages 30-39 = 107 mL/min/1.73 sq.m. Ages 40-49 = 99 mL/min/1.73 sq.m. Ages 50-59 = 93 mL/min/1.73 sq.m. Ages 60-69 = 85 mL/min/1.73 sq.m. Ages 70+ = 75 mL/min/1.73 sq.m. Chronic Kidney Disease: Less than 60 mL/min/1.73 square meters End Stage Renal Disease: Less than 15 mL/min/1.73 square meters Performed By: #### P BNP, GFR, BMP #### [address] [address] GFR Non- 76 ml/min/1.73sqm Normal [facility] ([place]) Comment on above: Result Comment: GFR Population mean for , Non- Americans Ages 20-29 = 116 mL/min/1.73 sq.m. Ages 30-39 = 107 mL/min/1.73 sq.m. Ages 40-49 = 99 mL/min/1.73 sq.m. Ages 50-59 = 93 mL/min/1.73 sq.m. Ages 60-69 = 85 mL/min/1.73 sq.m. Ages 70+ = 75 mL/min/1.73 sq.m. Chronic Kidney Disease: Less than 60 mL/min/1.73 square meters End Stage Renal Disease: Less than 15 mL/min/1.73 square meters Performed By: #### P BNP, GFR, BMP #### [address] [address] BMPon 07-25-2022 BUN/Creatinine Ratio 21 ratio Normal 7-27 [facility] ([place]) Comment on above: Performed By: #### P BNP, GFR, BMP #### [address] [address] Calcium [Mass/Vol] 9.2 mg/dL Normal 8.4-10.2 [facility] ([place]) Comment on above: Performed By: #### P BNP, GFR, BMP #### [address] [address] Chloride [Moles/Vol] 104 mmol/L Normal 98-107 [facility] ([place]) Comment on above: Performed By: #### P BNP, GFR, BMP #### [address] [address] CO2 [Moles/Vol] 28 mmol/L Normal 23-31 [facility] ([place]) Comment on above: Performed By: #### P BNP, GFR, BMP #### [address] [address] Creatinine [Mass/Vol] 0.96 mg/dL Normal 0.70-1.30 [facility] ([place]) Comment on above: Performed By: #### P BNP, GFR, BMP #### [address] [address] Electrolyte Balance 10.0 mEq/L Normal 4.0-15.0 [facility] ([place]) Comment on above: Performed By: #### P BNP, GFR, BMP #### [address] [address] Glucose [Mass/Vol] 118 mg/dL High 83-110 [facility] ([place]) Comment on above: Performed By: #### P BNP, GFR, BMP #### [address] [address] Potassium [Moles/Vol] 4.2 mmol/L Normal 3.5-5.1 [facility] ([place]) Comment on above: Performed By: #### P BNP, GFR, BMP #### [address] [address] Sodium [Moles/Vol] 142 mmol/L Normal 136-145 [facility] ([place]) Comment on above: Performed By: #### P BNP, GFR, BMP #### [address] [address] Urea nitrogen [Mass/Vol] 20 mg/dL High 7-18 [facility] ([place]) Comment on above: Performed By: #### P BNP, GFR, BMP #### [address] [address] LABORATORYOrdered By: SYSTEM SYSTEM on 07-25-2022 Calcium [Mass/Vol] 9.2 mg/dL Invalid Interpretation Code 8.4 - 10.2 mg/dL AO ADM SS Chloride [Moles/Vol] 104 mmol/L Invalid Interpretation Code 98 - 107 mmol/L AO ADM SS CO2 [Moles/Vol] 28 mmol/L Invalid Interpretation Code 23 - 31 mmol/L AO ADM SS Creatinine [Mass/Vol] 0.96 mg/dL Invalid Interpretation Code 0.70 - 1.30 mg/dL AO ADM SS Electrolyte Balance 10.0 mEq/L Invalid Interpretation Code 4.0 - 15.0 mEq/L AO ADM SS GFR/1.73 sq M.predicted among blacks MDRD (S/P/Bld) [Vol rate/Area] 92 ml/min/1.73sqm Invalid Interpretation Code AO Chemistry S GFR/1.73 sq M.predicted among non-blacks MDRD (S/P/Bld) [Vol rate/Area] 76 ml/min/1.73sqm Invalid Interpretation Code AO Chemistry S Glucose [Mass/Vol] 118 mg/dL Invalid Interpretation Code 83 - 110 mg/dL AO ADM SS Natriuretic peptide.B prohormone N-Terminal [Mass/Vol] 339 pg/mL Invalid Interpretation Code 0 - 450 pg/mL AO ADM SS Potassium [Moles/Vol] 4.2 mmol/L Invalid Interpretation Code 3.5 - 5.1 mmol/L AO ADM SS Sodium [Moles/Vol] 142 mmol/L Invalid Interpretation Code 136 - 145 mmol/L AO ADM SS Urea nitrogen [Mass/Vol] 20 mg/dL Invalid Interpretation Code 7 - 18 mg/dL AO ADM SS Urea nitrogen/Creatinine [Mass ratio] 21 ratio Invalid Interpretation Code 7 - 27 ratio AO ADM SS PBNPon 07-25-2022 Natriuretic peptide B (Bld) [Mass/Vol] 339 pg/mL Normal 0-450 [facility] ([place]) Comment on above: Result Comment: NT-p roBNP results of less than 300 pg/mL effectively rules out acute congestive heart failure with 99% negative predictive value. Performed By: #### P BNP, GFR, BMP #### [address] [address] Vital Signs Date Time Vital Sign Value Performing Clinician Josh martinez 04-24-2023 17:01-0400 Heart rate 75 /min LIZA CORDERO MD [address] [place] [address] 04-24-2023 16:30-0400 Diastolic Blood Pressure Non-Invasive 80 mm[Hg] LIZA CORDERO MD [address] [place] [address] 04-24-2023 16:30-0400 Heart rate 81 /min LIZA CORDERO MD [address] [place] [address] 04-24-2023 16:30-0400 Respiratory rate 16 /min LIZA CORDERO MD [address] [place] [address] 04-24-2023 16:30-0400 Systolic Blood Pressure Non-Invasive 150 mm[Hg] LIZA CORDERO MD [address] [place] [address] 04-24-2023 08:55-0400 Blood Pressure Location LIZA CORDERO MD [address] [place] [address] 04-24-2023 08:55-0400 Blood Pressure Method LIZA CORDERO MD [address] [place] [address] 04-24-2023 08:55-0400 Body height 170.2 cm LIZA CORDERO MD [address] [place] [address] 04-24-2023 08:55-0400 Body temperature 98.96 [degF] LIZA CORDERO MD [address] [place] [address] 04-24-2023 08:55-0400 Body weight 94.6 kg LIZA CORDERO MD [address] [place] [address] 04-24-2023 08:55-0400 Body weight 32.66 kg/m2 LIZA CORDERO MD [address] [place] [address] 04-24-2023 08:55-0400 Diastolic Blood Pressure Non-Invasive 95 mm[Hg] LIZA CORDERO MD [address] [place] [address] 04-24-2023 08:55-0400 Heart rate 64 /min LIZA CORDERO MD [address] [place] [address] 04-24-2023 08:55-0400 Respiratory rate 18 /min LIZA CORDERO MD [facility] 04-24-2023 08:55-0400 Systolic Blood Pressure Non-Invasive 160 mm[Hg] LIZA CORDERO MD [facility] Encounters Encounter Date Encounter Type Care Provider Facility Start: 04-24-2023 End: 04-24-2023 ambulatory LIZA CORDERO MD Facility:A Start: 04-24-2023 End: 04-24-2023 SAME DAY STAY LIZA CORDERO MD [facility] Start: 04-22-2023 End: 04-23-2023 ambulatory SALLIE [employer] Facility:B Start: 03-15-2023 End: 03-16-2023 ambulatory SALLIE [employer] Facility:B Start: 03-15-2023 End: 03-15-2023 Patient encounter procedure SALLIE [employer] [facility] Start: 08-01-2022 End: 08-02-2022 ambulatory SALLIE FISH [employer] Facility:B Start: 08-01-2022 End: 08-01-2022 Patient encounter procedure SALLIE FISH [employer] [facility] Start: 07-25-2022 End: 07-26-2022 ambulatory SALLIE FISH [employer] Facility:B Start: 07-25-2022 End: 07-25-2022 Patient encounter procedure SALLIE [employer] [facility] Start: 10-03-2021 End: 10-03-2021 Patient encounter procedure SALLIE FISH [employer] [facility] Start: 09-20-2021 End: 09-20-2021 Patient encounter procedure SALLIE [employer] [facility] Procedures Date Procedure Procedure Detail Performing Clinician Start: 04-24-2023 Percutaneous transluminal coronary angioplasty LIZA CORDERO MD Comment on above: stent to LAD Start: 02-11-2011 Appendectomy SALLIE GOTTI [employer] Start: 02-11-2003 Hernia of abdominal cavity (disorder) SALLIE CORADO [employer] Appendectomy Appendectomy( Confirmed ) SALLIE CORADO [employer] Repair of inguinal hernia Repair of inguinal hernia x 2( Confirmed ) SALLIE CORADO [employer] Payers Date Payer Category Payer Unknown 11 2022 Self-pay 1940 Unknown [id number] [id number] [id number] 1940 Unknown [id number] 2.16.8 [id number] 1942 Unknown [id number] 2.16.8 [id number] 1942 Unknown [id number] 2.16.8 [id number] 1942 Unknown [id number] 2.16.8 [id number] Social History Date Type Detail Facility Start: 09-11-2021 Tobacco smoking status Never s moked tobacco (finding) [facility] Sex Assigned At Sex [facility] Functional Status Date Assessment Result Facility 04-24-2023 Functional Status Awake [facility] 04-24-2023 Functional Status [facility] 04-24-2023 Functional Status Maintained [facility] Mental Status Date Assessment Result Facility 04-24-2023 Mental Status Orientation Oriented x 4 [facility] 04-24-2023 Mental Status [facility] 04-24-2023 Mental Status [facility] Clinical Notes 09-20-2021 to 04-24-2023 Note Date & Type Note Facility 04-24-2023 Hospital Discharg e instructions Patient Education 04/24/2023 17:23:16 3- Heart Cath/PCI radial (11/2017) HEART CATHETERIZATION/PCI (radial) Discharge Instructions DIET Drink plenty of fluids for the next 48 hours to help your kidneys flush the heart cath dye out of your system ACTIVITY For the next 48 hours: Do not deep bend the wrist Do not lift, push, or pull anything over 5 pounds for 5 days Do not use the hand/arm to support your weight when rising from a chair or bed Do not drive For the next 7 days: Do not submerse your procedure site in water Do not swim, wash dishes, or take tub baths You may write, eat, type, and shower WOUND CARE Keep a Band-Aid on your procedure site for the next 3-4 days after removing the original dressing 3-14 Change the Band-Aid daily or if it gets wet/soiled AFTER YOU GO HOME, CALL YOUR DOCTOR FOR: Any increase in bruising or tenderness from the procedure site Any redness, pus, or other signs of infection at the site A temperature above 100.5 Severe pain at the site DIAL 911 AND RETURN TO THE HOSPITAL FOR: Any bleeding from the procedure site. The site may be bruised or tender, but it should not be bleeding at any time. If your site begins to bleed, hold firm pressure on it and dial 911 to return to the hospital Any increase in swelling at the procedure site. An increase in swelling could mean the area is bleeding under the skin. Hold firm pressure to the site and dial 911 to return to the hospital Document Released: 01/28/2006 Document Revised: 01/14/2013 Document Reviewed: 01/29/2014 ExitCare Patient Information 2015 [employer]. This information is not intended to replace advice given to you by your health care provider. Make sure you discuss any questions you have with your health care provider. Follow Up Care 04/10/2023 11:21:10 With:*[facility] will contact you for an appointment in 1-2 weeks If you have any questions please call:[phone]. Address: When: Unknown With:LIZA CORDERO MD Address: [address] [place] [address]- [phone] When:05/22/2023 10:30:00 Comments:THIS APPOINTMENT WILL BE WITH WENDY GOFF [facility] 04-24-2023 Summary of episod e note Discharge Instructions Thank you for allowing [facility] to assist you with your healthcare needs. The following is important discharge information regarding your hospital visit. Your Care Team VICKI GOVEA DO What to do next Scheduled Follow-Up Appointments Appointment Type When With Where Contact InformationCV OV 05/22/2023 10:30 AM EDT SALLIE CORADO [facility] Follow Up Appointments Follow Up with LIZA CORDERO MD When 05/22/2023 10:30 AM EDT Why: THIS APPOINTMENT WILL BE WITH WENDY GOFF Where: [address] [place] [address]- [phone] Follow Up with *[facility] will contact you for an appointment in 1-2 weeks If you have any questions please call:[phone]. When Where: The Following Activity and Diet Have Been Ordered for You Discharge Activity - Ordered -- Lifting Restricted less than 5 pounds, No heavy lifting for 5 days followed by return to normal activities, 04/24/23 11:10:00 EDT Discharge Diet - Ordered -- No changes were made to your diet during your hospital stay. Please resume your pre hospitalization diet on discharge., 04/24/23 11:10:00 EDT Allergies NKA Medications Please ask your primary doctor or pharmacist before taking any other medication not listed, including over the counter drugs, herbal medications, vitamins and or supplements as they may interact with your home medications. What How Much When Instructions Last Dose New aspirin (aspirin 81 mg oral delayed release tablet) 1 tab(s) by mouth Every day Refills: 6 Pickup at [facility] Start 3-14 New ticagrelor (Brilinta (ticagrelor) 90 mg oral tablet) 1 tab(s) by mouth Two (2) times a day Refills: 6 Pickup at [facility] Start 3-14 Unchanged allopurinol (allopurinol 100 mg oral tablet) 1 tab(s) by mouth Once a day Unchanged atorvastatin (atorvastatin 40 mg oral tablet) 1 tab(s) by mouth Once a day Unchanged carvedilol (carvedilol 12.5 mg oral tablet) 1 tab(s) by mouth Two (2) times a day Unchanged telmisartan (telmisartan 40 mg oral tablet) 1 tab(s) by mouth Once a day Unchanged torsemide (torsemide 20 mg oral tablet) 1 tab(s) by mouth Every day Unchanged venlafaxine (venlafaxine 75 mg oral tablet) TAKE 3 TABLETS BY MOUTH ONCE DAILY IN THE MORNING Pharmacy Information [facility]: [id number] [place] [address] [phone] Please take this list to your next doctor s visit. Bring all medications you take, including over the counter medications, herbals and other supplements with you to your doctor s visit. Patients and families are reminded to discard old lists and to update any records with all medication providers or retail pharmacies. Medication Leaflets ticagrelor (rosario KA grel or) Brilinta (ticagrelor) What is the most important information I should know about ticagrelor? You should not use ticagrelor if you have any active bleeding or a history of bleeding in the brain. Do not use this medicine just before heart bypass surgery. Ticagrelor may cause you to bleed more easily, which can be severe or life-threatening. Call your doctor or seek emergency medical attention if you have bleeding that will not stop, black or bloody stools, red or pink urine, or if you cough up blood or vomit that looks like coffee grounds. Tell your doctor about all your current medicines and any you start or stop using. Many drugs can interact with ticagrelor. Do not stop taking ticagrelor without first talking to your doctor, even if you have signs of bleeding. Stopping ticagrelor may increase your risk of a heart attack or stroke. What is ticagrelor? Ticagrelor is used to lower your risk of heart attack, stroke, or due to a blocked artery or a prior heart attack. Ticagrelor is also used to lower your risk of blood clots if you have coronary artery disease (decreased blood flow to the heart) and have been treated with stents to open clogged arteries. Ticagrelor is also used to lower your risk of a first heart attack or stroke if you have decreased blood flow to the heart. Ticagrelor is also used to lower the risk of stroke and in adults with a blockage or decreased blood flow in an artery that supplies blood to the brain. Ticagrelor is usually given together with low-dose aspirin. Carefully follow your doctor's dosing instructions. Using too much aspirin can make ticagrelor less effective. Ticagrelor may also be used for purposes not listed in this medication guide. What should I discuss with my healthcare provider before taking ticagrelor? You should not use ticagrelor if you are allergic to it, or if you have: any active bleeding; or a history of bleeding in the brain (such as from a head injury). Tell your doctor if you have ever had: a stroke; heart problems; a surgery or bleeding injury; bleeding problems; a stomach ulcer or colon polyps; liver disease; or asthma, COPD (chronic obstructive pulmonary disorder) or other breathing problem. It is not known whether this medicine will harm an unborn baby. Tell your doctor if you are or plan to become . You should not breastfeed while using ticagrelor. How should I take ticagrelor? Follow all directions on your prescription label and read all medication guides or instruction sheets. Ticagrelor is taken together with aspirin. Use these medicines exactly as directed. Do not take more aspirin than your doctor has prescribed. Taking too much aspirin can make ticagrelor less effective. Take ticagrelor at the same times each day, with or without food. If you cannot swallow a tablet whole, crush the pill and mix it with water. Stir and drink this mixture right away. Add more water to the glass, stir, and drink right away. Ticagrelor keeps your blood from coagulating (clotting) and can make it easier for you to bleed, even from a minor injury. Contact your doctor or seek emergency medical attention if you have any bleeding that will not stop. To prevent excessive bleeding, you may need to stop using ticagrelor for a short time before a surgery, medical procedure, or dental work. Any healthcare provider who treats you should know that you are taking ticagrelor. Do not stop taking ticagrelor without first talking to your doctor, even if you have signs of bleeding. Stopping the medicine could increase your risk of a heart attack or stroke. This medicine may affect medical testing for platelets in your blood and you may have false results. Tell the laboratory staff that you use ticagrelor. Store at room temperature away from moisture and heat. What happens if I miss a dose? Skip the missed dose and use your next dose at the regular time. Do not use two doses at one time. What happens if I overdose? Seek emergency medical attention or call the Poison Help line at . Overdose can cause excessive bleeding. What should I avoid while taking ticagrelor? Drinking alcohol while taking aspirin can increase your risk of stomach bleeding. Avoid activities that may increase your risk of bleeding or injury. Use extra care to prevent bleeding while shaving or brushing your teeth. While taking ticagrelor with aspirin, avoid using medicines for pain, fever, swelling, or cold/flu symptoms. They may contain ingredients similar to aspirin (such as salicylates, ibuprofen, ketoprofen, or naproxen). Taking certain products together can cause you to get too much aspirin which can increase your risk of bleeding. What are the possible side effects of ticagrelor? Get emergency medical help if you have signs of an allergic reaction: hives; difficult breathing; swelling of your face, lips, tongue, or throat. Call your doctor at once if you have: slow heartbeats; nosebleeds, or any bleeding that will not stop; shortness of breath even with mild exertion or while lying down; easy bruising, unusual bleeding, purple or red spots under your skin; red, pink, or brown urine; black, bloody, or tarry stools; or coughing up blood or vomit that looks like coffee grounds. Common side effects may include: bleeding; or shortness of breath. This is not a complete list of side effects and others may occur. Call your doctor for medical advice about side effects. You may report side effects to FDA at 9-553-KRK-3631. What other drugs will affect ticagrelor? Sometimes it is not safe to use certain medications at the same time. Some drugs can affect your blood levels of other drugs you take, which may increase side effects or make the medications less effective. Tell your doctor about all your current medicines. Many drugs can affect ticagrelor, especially: antifungal medicine; antiviral medicine to treat HIV or AIDS; a blood thinner; cholesterol medication; heart or blood pressure medication; opioid medication; seizure medicine; or tuberculosis medicine. This list is not complete and many other drugs may affect ticagrelor. This includes prescription and nxaa-jmh-[id number] medicines, vitamins, and herbal products. Not all possible drug interactions are listed here. Where can I get more information? Your pharmacist can provide more information about ticagrelor. Remember, keep this and all other medicines out of the reach of children, never share your medicines with others, and use this medication only for the indication prescribed. Every effort has been made to ensure that the information provided by [employer]. ('[employer]') is accurate, up-to-date, and complete, but no guarantee is made to that effect. Drug information contained herein may be time sensitive. [employer] information has been compiled for use by healthcare practitioners and consumers in the [place] and therefore [employer] does not warrant that uses outside of the [place] are appropriate, unless specifically indicated otherwise. [employer] drug information does not endorse drugs, diagnose patients or recommend therapy. [employer] drug information is an informational resource designed to assist licensed healthcare practitioners in caring for their patients and/or to serve consumers viewing this service as a supplement to, and not a substitute for, the expertise, skill, knowledge and judgment of healthcare practitioners. The absence of a warning for a given drug or drug combination in no way should be construed to indicate that the drug or drug combination is safe, effective or appropriate for any given patient. [employer] does not assume any responsibility for any aspect of healthcare administered with the aid of information [employer] provides. The information contained herein is not intended to cover all possible uses, directions, precautions, warnings, drug interactions, allergic reactions, or adverse effects. If you have questions about the drugs you are taking, check with your doctor, nurse or pharmacist. Copyright 2032-3368 [employer]. Version: 5.01. Revision Date: 03/04/2020. Education Materials HEART CATHETERIZATION/PCI (radial) Discharge Instructions DIET Drink plenty of fluids for the next 48 hours to help your kidneys flush the heart cath dye out of your system ACTIVITY For the next 48 hours: Do not deep bend the wrist Do not lift, push, or pull anything over 5 pounds for 5 days Do not use the hand/arm to support your weight when rising from a chair or bed Do not drive For the next 7 days: Do not submerse your procedure site in water Do not swim, wash dishes, or take tub baths You may write, eat, type, and shower WOUND CARE Keep a Band-Aid on your procedure site for the next 3-4 days after removing the original dressing 3-14 Change the Band-Aid daily or if it gets wet/soiled AFTER YOU GO HOME, CALL YOUR DOCTOR FOR: Any increase in bruising or tenderness from the procedure site Any redness, pus, or other signs of infection at the site A temperature above 100.5 Severe pain at the site DIAL 911 AND RETURN TO THE HOSPITAL FOR: Any bleeding from the procedure site. The site may be bruised or tender, but it should not be bleeding at any time. If your site begins to bleed, hold firm pressure on it and dial 911 to return to the hospital Any increase in swelling at the procedure site. An increase in swelling could mean the area is bleeding under the skin. Hold firm pressure to the site and dial 911 to return to the hospital Document Released: 01/28/2006 Document Revised: 01/14/2013 Document Reviewed: 01/29/2014 ExitCare Patient Information 2015 [facility], [facility]. This information is not intended to replace advice given to you by your health care provider. Make sure you discuss any questions you have with your health care provider. Additional Information VACCINATE! IT SAVES LIVES! Members of the community who have not yet received the COVID-19 vaccine and would like to receive it can visit one of [facility] vaccine clinics. There are many vaccine clinic locations within the [facility]. For locations and available times, please visit https://gettheshot.coronavirus.o hio.gov/. It is important to note that some COVID mobile vaccine clinics are held outdoors and may be canceled in rainy or stormy conditions. To learn more about pediatric vaccinations (ages 5-11), we invite you to visit the [facility] webpage. [email or web address].[email or web address].org/p [email or web address]-Esrdv-Gingtsfgzrs-Freq [email or web address]-[email or web address].html To learn more about the COVID-19 vaccine, we invite you to visit the CDC website for a list of frequently asked questions.https://www.cdc.gov/co ronavirus/2019-ncov/vaccines/faq .html [employer] Patient Portal Access Instructions: Stay connected with your healthcare team and access your personal medical information anytime with the [employer] Patient Portal. Please follow the directions below to create your [employer] account: 1.Access the email account you provided upon registration to the hospital/physician office.2.Look for an invitation email from [facility].3.Open the email and access the invitation link: Accept Invitation to [facility] [employer].4.Fill in the required garcia to create your account. To access your account, visit [employer]. Click the blue button labeled Access Patient Portal and then log in with the username and password that you created in the steps above. You will be able to view your test results, lab results, a summary of your visits, upcoming appointments and more. There is also a convenient messaging option where you can send secure messages to your provider. In addition, you will have the ability to download any documents or summaries to your computer and/or send the information securely to a physician. Remember that your healthcare information is confidential, so carefully consider who you will allow to register on the [employer] Patient Portal for access to your information. You can also access the [employer] Patient Portal on the [employer] roosevelt. Simply click on Patient Portal and then log into your account. If you would like to receive a full copy of your medical records, please contact the [facility] Medical Records Department by calling [phone], Saturday through Saturday between 8 a.m. and 4:30 p.m. HOW TO SAFELY DISPOSE OF PRESCRIPTION MEDICATIONS Please use one of the following methods to safely dispose of your unused medications. 1.Use a drug disposal kit: the drug disposal pouch allows you to safely discard your old and unused drugs. Ask your nurse to give you one when you are discharged.2.Visit a local take-back location: Many local pharmacies and police departments have programs that collect old and unwanted prescription drugs. Call your local pharmacy or go to http://okay.com.[employer]/8K1Wb1r to find one close to you.3.Make use of household items: Use cat litter or old coffee grounds to dispose medications if other options are not available. Mix your drugs with these household products, seal them in an airtight container and throw it into the garbage. Call [facility]: [phone] to be sure your drugs can be disposed of in this way. Some medicines may require a different approach.4.Never flush your medications down the toilet. IF YOU HAVE BEEN PRESCRIBED AN OPIOID FOR PAIN If you have been prescribed an opioid (such as hydrocodone, oxycodone or morphine), it is critical to understand the possible side effects and risks of opioid pain medications. Even when taken as directed, opioids can have several side effects including: Tolerance, meaning you might need to take more of a medication for the same pain relief. Nausea, vomiting and/or constipation. Sleepiness, dizziness, dry mouth, confusion, depression or itching. Physical dependence, meaning you have withdrawal symptoms when a medication is stopped, can develop within a few days. KNOW YOUR RESPONSIBILITIES It is important to know exactly how much and how often to take the opioid pain medications you are prescribed. Never take opioids in higher amounts or more often than prescribed. Do not combine opioids with alcohol or other drugs that cause drowsiness, such as benzodiazepines, also known as benzos, including diazepam and alprazolam, muscle relaxants or sleep aids. Never sell or share prescription opioids. This is illegal. Store opioids in a secure place and out of reach of others (including children, family, friends and visitors). The last page of this document has been signed and retained as a CHART COPY. Signatures Patient Education Materials 3- Heart Cath/PCI radial (11/2017) Medication Leaflets Brilinta (ticagrelor) My discharge plan and instructions have been reviewed and explained to me and ITERESA RAYMOND D understand my current condition and have read and understand these discharge instructions. I have received a written copy of the plan/instructions. If I have questions, I am aware that I should contact my doctor. Patient/Front Counter Attendant Signature: Date/Time: Relationship to Patient: Witness Name/Signature: Date/Time: [facility] 04-24-2023 Discharge summary Hospital Course Patient present for outpatient left heart cath. 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 Patient underwent FFR which was positive. Patient had underwent PCI of LAD with excellent result. Patient tolerated procedure well without complication. Patient will f/u with cardiology as OP. Patient educated extensively importance of compliance with aspirin and Brilinta due to risk of send post and . Patient verbalized understanding. Allergies NKA Consults No qualifying data available. Physical Exam Vitals and Measurements T: 37.2 C (Oral) HR: 64 RR: 18 BP: 160/95 SpO2: 92% HT: 170.2 cm WT: 94.6 kg BMI: 32.66 Weight Dosing Weight: 94.6 kg (04/24/23) GENERAL: Well nourished; no acute distress. PSYCHIATRIC: Alert and oriented x 3, cooperative, mood normal, affect normal. HEAD: Normocephalic, nontraumatic head. EYES: Pupils equal, round, and reactive to light; conjunctiva clear bilaterally. Lids within normal limits. NECK: Supple, no posterior midline tenderness. Normal range of motion. No thyromegaly noted. CARDIAC: Regular rate, regular rhythm, no murmurs noted. RESPIRATORY: Regular rate and depth; no distress, RIGHT lung clear, LEFT lung clear. Breath sounds normal. ABDOMEN: Soft, nontender. Normal bowel sounds. EXTREMITIES: No trace lower extremity pitting edema. No lymphedema. Dorsalis Pedis pulse +2/4 bilaterally. Posterior Tibialis pulse +2/4 bilaterally. NEURO: Moves all extremities DERM: Warm and dry. Normal turgor. No observed exanthem. No significant dandruff. Code Status No qualifying data available. Medications New Prescription aspirin (aspirin 81 mg oral delayed release tablet)1 tab(s) by mouth every day. Refills: 6. ticagrelor (Brilinta (ticagrelor) 90 mg oral tablet)1 tab(s) by mouth two (2) times a day. Refills: 6. Unchanged allopurinol (allopurinol 100 mg oral tablet)1 tab(s) by mouth once a day. atorvastatin (atorvastatin 40 mg oral tablet)1 tab(s) by mouth once a day. Refills: 0. carvedilol (carvedilol 12.5 mg oral tablet)1 tab(s) by mouth two (2) times a day. Refills: 3. telmisartan (telmisartan 40 mg oral tablet)1 tab(s) by mouth once a day. Refills: 0. torsemide (torsemide 20 mg oral tablet)1 tab(s) by mouth every day. Refills: 5. venlafaxine (venlafaxine 75 mg oral tablet)TAKE 3 TABLETS BY MOUTH ONCE DAILY IN THE MORNING. Follow Up Follow Up with LIZA CORDERO MD When 05/22/2023 10:30 AM EDT Why: THIS APPOINTMENT WILL BE WITH WENDY GOFF Where: [address] [facility] [place] [address]- [phone] Follow Up Appointments No qualifying data available. Follow Up Labs/Studies Discharge Labs No Follow-up Labs Discharge Studies No Follow-up Studies Discharge Diet Discharge Diet - Ordered -- No changes were made to your diet during your hospital stay. Please resume your pre hospitalization diet on discharge., 04/24/23 11:10:00 EDT Discharge Activity Discharge Activity - Ordered -- Lifting Restricted less than 5 pounds, No heavy lifting for 5 days followed by return to normal activities, 04/24/23 11:10:00 EDT Digitally Signed by DEIRDRE BAPTISTE MD on 04/24/2023 11:11 AM Digitally Signed by LIZA CORDERO MD [facility] 04-24-2023 Note Exam Date Time Procedure Performing Provider Status 04/24/23 9:55 AM Cardiac Catheterization -CV [facility] 08-10-2022 Note ORIGINAL NM MYOCARDIAL SPECT STRESS/REST CLINICAL STATEMENT: SOB, CAD TECHNIQUE: Lexiscan dose:0.4 mg Radiopharmaceutical (stress): Tc-99m Sestamibi Dose:32.5 mCi Radiopharmaceutical (rest): Tc-99m Sestamibi Dose:10.3 mCi SPECT acquisition and processing Reconstruction and reorientation of SPECT images into short axis, vertical and horizontal long axisplanes Quantitative LVEF assessment COMPARISON:None REPORT:Overall, image quality is fair. Rotating planar images show no significant patient motion. Gated SPECT images show normal LEFT ventricular size and function. Ejection fraction is calculated at 53%. LVEDV is 87 mL. SPECT perfusion images during rest and stress show relatively homogeneous radiotracer uptake. Visually, there is trivial decrease in anterior uptake on stress images. However, objectively the summed stress score is 0. The summed difference score is 0. IMPRESSION: 1. No significant ischemia seen (trivial anterior subjectively, none objectively). 2. No evidence of infarction. 3. Normal LV size and function. 4. No previous for comparison. Interpreted By: Ulysses Booth Preliminary Report By: Ulysses Booth Electronically Signed By: Ulysses Booth Dictated Date: 09/20/2021 10:48:44 AM Prelim Date: 09/20/2021 10:48:44 AM Sign Date: 09/20/2021 10:55:42 AM Ordering Provider:Sallie Corado [place] [id number] Note ORIGINAL NM MYOCARDIAL SPECT STRESS/REST CLINICAL STATEMENT: SOB, CAD TECHNIQUE: Lexiscan dose:0.4 mg Radiopharmaceutical (stress): Tc-99m Sestamibi Dose:32.5 mCi Radiopharmaceutical (rest): Tc-99m Sestamibi Dose:10.3 mCi SPECT acquisition and processing Reconstruction and reorientation of SPECT images into short axis, vertical and horizontal long axisplanes Quantitative LVEF assessment COMPARISON:None REPORT:Overall, image quality is fair. Rotating planar images show no significant patient motion. Gated SPECT images show normal LEFT ventricular size and function. Ejection fraction is calculated at 53%. LVEDV is 87 mL. SPECT perfusion images during rest and stress show relatively homogeneous radiotracer uptake. Visually, there is trivial decrease in anterior uptake on stress images. However, objectively the summed stress score is 0. The summed difference score is 0. IMPRESSION: 1. No significant ischemia seen (trivial anterior subjectively, none objectively). 2. No evidence of infarction. 3. Normal LV size and function. 4. No previous for comparison. Interpreted By: Ulysses Booth Preliminary Report By: Ulysses Booth Electronically Signed By: Ulysses Booth Dictated Date: 09/20/2021 10:48:44 AM Prelim Date: 09/20/2021 10:48:44 AM Sign Date: 09/20/2021 10:55:42 AM [facility] Future Appointments Appointment Date:10/03/2021 08:00:00 AM Scheduled Provider: Location:[facility] Appointment Type:CV Procedure - [facility] Echo Appointment Date:10/03/2021 09:15:00 AM Scheduled Provider:SALLIE CORADO Location:[facility] Appointment Type:[facility] Evaluation + Plan note Future Appointments Appointment Date:10/10/2021 09:30:00 AM Scheduled Provider:SALLIE CORADO Location:[facility] Appointment Type:[facility] Evaluation + Plan note Future Appointments Appointment Date:08/01/2022 01:00:00 PM Scheduled Provider: Location:[facility] Appointment Type:CV Procedure - AOH Echo Appointment Date:08/29/2022 10:30:00 AM Scheduled Provider:SALLIE CORADO Location:[facility] Appointment Type:[facility] Evaluation + Plan note Future Appointments Appointment Date:08/29/2022 10:30:00 AM Scheduled Provider:SALLIE CORADO Location:[facility] Appointment Type:[facility] Evaluation + Plan note Future Appointments Appointment Date:04/10/2023 11:00:00 AM Scheduled Provider:SALLIE CORADO Location:[facility] Appointment Type:CV OV [facility] Evaluation + Plan note Future Appointments Appointment Date:05/22/2023 10:30:00 AM Scheduled Provider:SALLIE CORADO Location:[facility] Appointment Type:CV OV [facility] Hospital course Narrative No data available for this section [facility] Hospital Discharge instructions No data available for this section [facility] Progress note No data available for this section [facility] Summary Purpose Family History No Family History Records Found Advance Directives No Advanced Directives Records Found Additional Source Comments Care Team (unrecognized sect ion and content) Care Team Personnel Name: VICKI GOVEA DO Med Service: Family Practice Member Role: Primary Care Physician Address: Address: [address] [place] [address] Care Team Related Persons Name: NEISHA MOORE Address: [address] Care Team Personnel Name: VICKI GOVEA DO Member Role: Primary Care Physician Address: Address: [id number] [place], [place] [id number] Care Team Related Persons Name: NEISHA MOORE Address: [address] Patient Care team informatio n (unrecognized section and content) Care Team Personnel Name: VICKI GOVEA DO Member Role: Primary Care Physician Address: Address: [id number] [place] [address] Care Team Related Persons Name: NEISHA MOORE Address: [address] Care Team Personnel Name: VICKI GOVEA DO Member Role: Primary Care Physician Address: Address: [address] [id number] [place] [address]- Care Team Related Persons Name: NEISHA MOORE Address: [address] [address] [place] Care Team Personnel Name: VICKI GOVEA DO Member Role: Primary Care Physician Address: Address: [place] [phone] [place] [address]- Care Team Related Persons Name: NEISHA MOORE Address: [address] Care Team Personnel Name: VICKI GOVEA DO Member Role: Primary Care Physician Address: Address: [place] [phone] [place] [address]- Care Team Related Persons Name: NEISHA MOORE Address: [address] (unrecognized sect ion and content) No Status Records Found INFORMATION SOURCE (unrecogn ized section and content) DATE CREATED AUTHOR 04/30/2023 [facility] ([place]) FOR RECORDS PERTAINING TO PATIENTS WHO ARE OR HAVE BEEN ENROLLED IN A CHEMICAL DEPENDENCY/SUBSTANCEABUSE PROGRAM, SOME INFORMATION MAY BE OMITTED. This clinical summary was aggregated from multiple sources. Caution should be exercised in using it in the provision of clinical care. This summary normalizes information from multiple sources, and as a consequence, information in this document may materially change the coding, format and clinical context of patient data. In addition, data may be omitted in some cases. CLINICAL DECISIONS SHOULD BE BASED ON THE PRIMARY CLINICAL RECORDS. [facility]. provides no warranty or guarantee of the accuracy or completeness of information in this document.
[2023-12-05 22:09] VITALS: BP 107/77; PULSE 115; RESP 16; O2SAT 98
--- NOTE | 2023-12-05 23:33 | EX.ED.DYSGE1 ---
HPI History of Present Illness Chief Complaint: Wound Check Informant: patient Onset/Context/Timing Onset: Today Context: Sudden Onset Timing: Continuous Quality: Bleeding Location: Scrotum Worsened by: Nothing Relieved by: Nothing Narrative Narrative: Patient presents with bleeding from his scrotum that began today. Patient states it began while he was taking a shower this morning. Patient states that has been persistent all day. Patient had recent surgery 1 week ago and states the stitches opened up today. Patient denies any trauma or injury. Patient admits to occasional dysuria but denies any hematuria. Patient denies any fevers or chills. Patient denies any purulent discharge. [facility] Medical History (Updated 12/06/23 @ 02:[address] Sorin Prado DO) History of broken leg Gout Home Medications ?Medication ?Instructions ?Recorded ?Last Taken ?Type atorvastatin 40 mg tablet 40 mg PO QHS cholesterol 01/21/18 03/29/19 22:00 History 40 mg venlafaxine 150 mg 75 mg PO DAILY mood 01/21/18 03/29/19 08:00 History capsule,extended release 24 hr 75 mg telmisartan 40 mg tablet 40 mg PO DAILY heart 03/30/19 03/29/19 08:00 History 40 mg aspirin 81 mg capsule 81 mg PO DAILY 12/05/23 Unknown History clopidogrel 1 tab PO DAILY 12/05/23 Unknown History cephalexin 500 mg capsule 500 mg PO Q6 #40 CAPSULES 12/06/23 Unknown Rx Allergy/AdvReac Type Severity Reaction Status Date / Time No Known Allergies Allergy Verified 12/05/23 19:04 Surgical History (Updated 12/06/23 @ 00:[address] Sorin Prado DO) Hx of appendectomy S/P ORIF (open reduction internal fixation) fracture Hx of heart artery stent History of hernia repair Social History Smoking Status: Never smoker ROS ROS ED Constitutional Constitutional ED: Denies chills or fever(s) Eyes Eyes: Denies blurry vision or change in vision ENT ENT ED: Denies rhinorrhea or sore throat Cardiovascular Cardiovascular: Denies chest pain or palpitations Respiratory/Chest Respiratory/Chest: Denies cough or dyspnea Gastrointestinal Gastrointestinal: Denies nausea or vomiting Genitourinary Genitourinary ED: Reports dysuria; Denies hematuria Musculoskeletal Musculoskeletal: Reports neck pain; Denies back pain Integumentary Denies abscess or rash Neurologic Neurologic: Denies headache(s) or weakness Allergic/Immunologic Allergic/Immunologic ED: Denies mouth swelling or urticaria EXAM Physical Exam Const Vital Signs: 12/05/23 19:04 12/05/23 22:09 12/06/23 00:09 Temperature 98.0 F Temperature Source Oral Pulse Rate 107 H 115 H 101 H Respiratory Rate 18 16 17 Blood Pressure 124/75 H 107/77 115/70 Blood Pressure Mean 91 87 85 Pulse Ox 95 98 98 Oxygen Delivery Method Room Air Room Air Room Air 12/06/23 02:00 Temperature Temperature Source Pulse Rate 97 Respiratory Rate 18 Blood Pressure 115/69 Blood Pressure Mean 84 Pulse Ox 98 Oxygen Delivery Method Room Air Positive well nourished and well developed General Appearance ED: well developed and NAD HEENT Reports moist mucous membranes Neck supple and no JVD Resp normal respiratory effort and clear to auscultation bilaterally Cardio regular rate and regular rhythm GI non-tender and non-distended Palpation: soft Narrative: There is a 6 cm linear open wound to the scrotum on the left inferior portion of the scrotum. There are some moderate bleeding. Laceration extends into the subcutaneous tissue. There is no exposure of the testicle. There is no erythema or warmth noted. Neuro oriented x3, CN's II-XII intact bilaterally and no sensory deficits noted Sensorium / Orientation: alert Motor Exam: strength 5/5 throughout Psych mental status grossly normal MDM MDM MDM Narrative Medical decision making narrative: Differential diagnosis includes anemia, urinary tract infection, coagulopathy, and electrolyte abnormality. CBC will be obtained to assess for leukocytosis and anemia. Basic metabolic profile will be obtained to assess for electrolyte abnormality and renal function. PT with INR and PTT will be obtained to assess for coagulopathy. Urinalysis will be obtained to assess for urinary tract infection. Lab Data Attestation: I reviewed the patient's lab results. Lab results narrative: CBC was reviewed. There is a slight anemia with a hemoglobin of 12.2 and hematocrit 36.0. PT with INR and PTT were reviewed and were within normal limits. Basic metabolic profile was reviewed. BUN was slightly elevated at 31. The remainder is within normal limits. Urinalysis was reviewed. Leukocyte esterase was 500 with 10-25 white blood cells and 10-25 red blood cells. There is 2+ bacteria. Labs: Laboratory Results - last 24 hr 12/05/23 12/06/23 22:48 01:58 WBC 9.9 RBC 3.58 L Hgb 12.2 L Hct 36.0 L MCV 100.6 H MCH 34.1 H MCHC 33.9 RDW Std Deviation 50.2 H RDW Coeff of [place] 13.5 Plt Count 249 MPV 9.1 Immature Gran % (Auto) 0.400 Neut % (Auto) 59.0 Lymph % (Auto) 24.6 [place] % (Auto) 12.1 H Eos % (Auto) 3.4 Baso % (Auto) 0.5 Absolute Neuts (auto) 5.8 Absolute Lymphs (auto) 2.43 Nucleated RBC % 0 PT 14.3 INR 1.1 APTT 30.3 Sodium 138 Potassium 4.7 Chloride 106 Carbon Dioxide 28.0 Anion Gap 4 L BUN 31 H Creatinine 1.10 Estim Creat Clear Calc 57.25 Est GFR (MDRD) Af Amer 83 Est GFR (MDRD) Non-Af 68 BUN/Creatinine Ratio 28.2 H Glucose 101 Calcium 9.3 Urine Color YELLOW Urine Clarity Sl. Cloudy Urine pH 6.0 Ur Specific [place] 1.020 Urine Protein 15 H Urine Glucose (UA) Normal Urine Ketones Negative Urine Occult Blood 150 H Urine Nitrite Negative Urine Bilirubin Negative Urine Urobilinogen Normal Ur Leukocyte Esterase 500 H Urine RBC 10-25 SEEN Urine WBC 10-25 SEEN Ur Squamous Epith Cells 5-10 SEEN Urine Bacteria 2+ Urine Mucus 2+ Additional Tests and Interventions Additional Tests or Interventions: Urine culture was ordered Treatment and Re-Evaluation :: The wound was cleaned and irrigated with copious amounts of normal saline. The wound was anesthetized with 1% plain lidocaine locally. The wound was closed with 8 simple interrupted #4-0 nylon sutures under sterile technique. Gelfoam dressing was applied. Patient tolerated the procedure well. Patient was instructed to keep the dressing in place for the next 24 hours. Patient was instructed to follow-up with his surgeon as scheduled. Patient was given a prescription for Keflex. Patient was given his first dose here. Patient was instructed to return if worse in any way. Patient understood and was agreeable with the plan. All questions were answered. Procedures Lacerations Scrotum: Depth: Sub Q Shape: Linear Prep: Sterile Conditions and Chlorhexadine Laceration repair: Irrigated, Lidocaine, Local, Skin sutures and Wound explored Irrigated (ml): 100 Number of Sutures/Conrad: 8 Suture Information: Ethilon, Simple and 4-0 Discharge Plan Triage Chief Complaint: Wound Check ED Provider: Sorin Prado Dx/Rx/DC Orders Clinical Impression: Postoperative dehiscence of skin wound, Postoperative bleeding from incision, Urinary tract infection Instructions: ED Post Op Wound Check, Bleeding, ED Bladder Infection, Male (Adult) Prescriptions: New cephalexin 500 mg capsule 500 mg PO Q6 Qty: 40 0RF No Action atorvastatin 40 MG tablet 40 mg PO QHS venlafaxine 150 MG capsule 75 mg PO DAILY telmisartan 40 MG tablet 40 mg PO DAILY aspirin 81 mg capsule 81 mg PO DAILY clopidogrel 1 tab PO DAILY Primary Care Provider: Care Physician,No Primary Referrals: Mustapha Valverde MD [Med Staff - Active Staff] - 7 Days for suture removal Care Physician,No Primary [Primary Care Provider] - Print Language: Jamaican Disposition Disposition: Home, Self Care
[2023-12-05] MEDS: Lidocaine 1% (20 ml mdv) 20 ML Vial INFILT (23:53)
[2023-12-06 00:01] LABS: Absolute Lymphocyte Count 2.43 X10^3/uL (0.83-4.51); Absolute Neutrophil Count 5.8 X10^3/uL (2.0-7.7); Basophil# 0.05 X10^3/uL; Basophil% 0.5 % (0-1); Eosinophil# 0.34 X10^3/uL; Eosinophils% 3.4 % (0-5); Hemoglobin 12.2 g/dL (13.0-16.5); Lymphocyte # 2.43 X10^3/ul (0.83-4.51); Lymphocyte % 24.6 % (19-41); Mean Corp Hgb Conc 33.9 g/dL (32-36); Mean Corpuscular Hgb 34.1 pg (27.0-32.0); Mean Corpuscular Volume 100.6 fL (80-94); Mean Platelet Vol. 9.1 fl (6.2-12.0); Monocyte% 12.1 % (0-10); NRBC Flagged by Analyzer 0 % (0-5); Neutrophil # 5.83 X10^3/uL (2.7-7.7); Platelet Count 249 K/mm3 (150-450); RBC Distribution Width CV 13.5 % (11.6-14.6); RBC Distribution Width SD 50.2 fl (35.1-43.9); Red Blood Count 3.58 M/mm3 (4.6-6.2); White Blood Count 9.9 K/mm3 (4.4-11.0)
[2023-12-06 00:09] VITALS: BP 115/70; PULSE 101; RESP 17; O2SAT 98
--- NOTE | 2023-12-06 00:13 | ED.RN ---
This RN has cleaned up the patient's wound every 30 minutes since his arrival to the ED, each time of dressing change, the patient's pads are saturated with blood and large sized clots. There was no doctor signed on prior to 2331, at which MD was made aware of the patient's excessive bleeding.
[2023-12-06 00:14] LABS: International Normalized Ratio 1.1; Prothrombin Time (Protime)PT. 14.3 SECONDS (11.7-14.9)
[2023-12-06 00:15] LABS: Anion Gap 4 (5-15); BUN 31 mg/dL (7-18); BUN/Creat Ratio 28.2 RATIO (10-20); Calcium,Total 9.3 mg/dL (8.5-10.1); Chloride 106 mmol/L (98-107); EST Glomerular Filtration Rate 68 mL/min (>60); Est Glom Filt Rate - Afr Amer 83 mL/min (>60); Estimated Creatinine Clearance 57.25 ml/min; Glucose 101 mg/dL (74-106); Partial Thromboplast Time 30.3 Seconds (24.1-36.2); Potassium 4.7 mmol/L (3.5-5.1); Sodium Level 138 mmol/L (136-145)
[2023-12-06 02:00] VITALS: BP 115/69; PULSE 97; RESP 18; O2SAT 98
[2023-12-06 02:09] LABS: Glucose, Dipstick Normal (Normal); Ketone-Dipstick Negative (Negative); Leukocyte Esterase-Dipstick 500 /ul (Negative); Nitrite-Dipstick Negative (Negative); Occult Blood-Urine 150 /ul (Negative); Protein-Dipstick 15 mg/dl (Negative); Urine Bilirubin Dipstick Negative (Negative); Urine Urobilinogen Normal (Normal)
[2023-12-06 02:34] LABS: Bacteria 2+ /hpf (None Seen); Color, Urine YELLOW (Yellow); Mucous, Urine 2+ /hpf (<or=2+); Red Blood Cells-Urine 10-25 SEEN /hpf (0-5); Squamous Epithelial Cells - UA 5-10 SEEN /hpf (0-5); Urine Clarity Sl. Cloudy (Clear); White Blood Cells 10-25 SEEN /hpf (0-5)
[2023-12-06] MEDS: Cephalexin 500 MG Capsule PO (02:58)
[2023-12-06 03:00] VITALS: BP 122/60; PULSE 88; RESP 18; TEMP -8.8; TEMP 16; O2SAT 98
== END 2023-12-06 03:03 | disposition home or self-care (01) ==
PROVIDERS: Emergency Provider Emergency Medicine; Visit Provider Emergency Medicine
DX: T81.31XA Disruption of external operation (surgical) wound, not elsewhere classified, initial encounter (principal); N39.0 Urinary tract infection, site not specified; L76.21 Postprocedural hemorrhage of skin and subcutaneous tissue following a dermatologic procedure; Z90.49 Acquired absence of other specified parts of digestive tract
CPT/HCPCS: 12002; 80048; 81001; 85025; 85610; 85730; 99284